=== PATIENT | female | born 1960 | race African-American/Black ===

== ENCOUNTER 2017-07-24 14:22 | Emergency (ER) | payer OTHER | END 2017-07-24 15:16 | disposition left against medical advice (07) | LOC: ERS 14:22 | DX: Z53.21 Procedure and treatment not carried out due to patient leaving prior to being seen by health care provider (principal) ==

== ENCOUNTER 2017-11-04 16:35 | Emergency (ER) | payer BC, OTHER ==
[2017-11-04] MEDS ORDERED: Morphine 4 MG/ML VIAL ONE (18:29)
[2017-11-04] MEDS ORDERED: Ondansetron ODT 4 MG TAB ONE (18:30)
--- NOTE | 2017-11-04 19:11 | CT ---
CT OF THE LUMBAR SPINE WITHOUT CONTRAST 11/04/17 COMPARISON: 05/31/14 HISTORY: Back pain after injuring it at work. TECHNIQUE: Multiple contiguous axial images were obtained in a CT of the cervical spine without contrast. Sagitt al and coronal reformats were performed. FINDINGS: There are moderate degenerative changes in the lumbar spine with vacuum phenomenon seen from L3-4 thr ough L5-S1. Small osteophytes are seen in the lumbar spine. There is no evidence of acute fracture or subluxation. No prevertebral soft tissue swelling is seen. No bony narrowing of the central canal is seen. There is mild to moderate bilateral neural foraminal stenosis from L3-4 through L5-S1. Vascular calcifications are seen in the aorta. The other prevertebral and paraspinal soft tissues are unremarkable. IMPRESSION: Moderate degenerative changes of the lumbar spine without acute osseous abnormality. POS: ALEX
== END 2017-11-04 19:49 | disposition home or self-care (01) ==
LOC: ERS 16:35
DX: S33.5XXA Sprain of ligaments of lumbar spine, initial encounter (principal); I10 Essential (primary) hypertension; E11.9 Type 2 diabetes mellitus without complications; E78.5 Hyperlipidemia, unspecified; Z79.899 Other long term (current) drug therapy; Z79.84 Long term (current) use of oral hypoglycemic drugs; X50.0XXA Overexertion from strenuous movement or load, initial encounter
CPT/HCPCS: 72131; 96372; J2270; Q0162

== ENCOUNTER 2018-02-14 12:17 | Inpatient (IN) | payer BC ==
[~2018-02-14 12:17] MED LIST: ISOVUE-370 76%-LOCM 1 ML ONE
--- NOTE | 2018-02-14 12:57 | CT ---
BRAIN CT WITHOUT IV CONTRAST: HISTORY: A 57-year-old female with a history of stroke, left-sided leg and arm deficits with ataxia since 4:00 a.m. this morning. COMPARISON: 01/27/13. FINDINGS: No focal mass or midline shift. No intra- or extraaxial hemorrhage. Sinuses and mastoids are clear of acute process. IMPRESSION: No significant acute process. No mass or bleed. Findings discussed with Dr. Wong by phone at 12:52 p.m. CODE CR POS: ALEX
[2018-02-14 13:18] LABS: #Basophils 0.1 thou/uL (0.0-0.2); #Eosinphils 0.1 thou/uL (0.0-0.7); #Lymphocytes 3.5 thou/uL (1.20-3.40); #Monocytes 0.9 thou/uL (0.11-0.59); #Neutrophils 5.6 thou/uL (1.40-6.50); %Basophils 0.7 % (0.0-1.0); %Eosinophils 0.6 % (0.0-10.0); %Lymphocytes 34.5 % (21.0-51.0); %Monocytes 9.2 % (0.0-10.0); %Neutrophils 54.9 % (42.0-75.0); Mean Corpuscular HGB CONC 31.4 g/dL (32.0-36.0); Mean Corpuscular Hemoglobin 24.8 pg (27.0-31.0); Mean Corpuscular Volume 78.9 fL (78.0-98.0); Mean Platelet Volume 9.1 fL (7.4-10.4); Platelet Count 232 thou/uL (130-400); RBC Distribution Width 14.8 % (11.5-14.5); Red Blood Cell (RBC) Count 4.42 mill/uL (4.20-5.40); White Blood Cell (WBC) Count 10.2 thou/uL (4.8-10.8)
[2018-02-14 13:26] LABS: PTT 38.1 SEC (22.9-36.1)
[2018-02-14 13:27] LABS: INR-International Normal Ratio 1.1
--- NOTE | 2018-02-14 13:29 | CT ---
CT ANGIOGRAM OF THE HEAD CT ANGIOGRAM OF THE NECK: DATE: 02/14/18. COMPARISON: None. HISTORY: Left-sided leg and arm deficits with ataxia which began at 4:00 a.m. this morning. TECHNIQUE: Serial axial CT imaging obtained at 1.25 mm intervals from the lung apices through the vertex with IV contrast using a CT angiogram protocol. Coronal and sagittal 3D reformatted imaging obtained. FINDINGS: There is mild linear interstitial density within the visualized lung apices bilaterally. There is atherosclerotic calcification involving the proximal descending thoracic aorta. There is at herosclerotic calcification at the origin of the left subclavian artery. On evaluation, the origin o f the left subclavian artery is poorly assessed secondary to streak artifact from contrast media with in adjacent venous structures. There is significant atherosclerotic calcification at the origin of t he left subclavian artery and a focal area of hemodynamically significant stenosis is suspected at th e level of the proximal left subclavian artery. Streak artifact limits detailed assessment of the proximal left common carotid artery. The left comm on carotid artery is otherwise unremarkable. Origin of right common carotid artery is unremarkable. No hemodynamically significant stenosis of th e right common carotid artery noted. Proximal right CCA is tortuous. There is atherosclerotic calci fication at origin of right subclavian artery. Right vertebral artery is dominant and appears unremarkable. The left vertebral artery is hypoplasti c. Proximal left vertebral artery is limited in assessment secondary to streak artifact but appears grossly unremarkable. The distal left cervical ICA is tortuous. There is no hemodynamically significant stenosis on the ba sis of NASCET criteria involving the left internal carotid artery. There is mild atherosclerotic calcification at the origin of the right internal carotid artery with n o hemodynamically significant stenosis seen. The retroantral fat and the parapharyngeal fat is clear bilaterally. Parotid glands and submandibular glands demonstrate no dominant past lesion. The tonsillar pillars, epiglottis, and preepiglottic fat, hyoid bone, thyroid cartilage, cricoid cartilage, and thyroid glan d appear grossly unremarkable. There is no lymphadenopathy noted within the neck. Osseous structures of the cervical spine demonstrate scattered degenerative changes, most prominent a t C6-7. No worrisome lytic or blastic bone lesion. The distal vertebral arteries and the basilar artery are patent. Patent bilateral posterior communic ating arteries are present. There are moderate areas of stenosis involving bilateral posterior cerebral arteries, best seen on th e right on axial image 198 and on the left on axial image 194. There is sclerotic calcification involving the cavernous carotid arteries bilaterally. The M1 segment is patent bilaterally. The MCA bifurcation appears within normal limits bilaterally. The MYLES is unremarkable bilaterally. No central arterial occlusion, sacular aneurysm, or hemodynamically significant stenosis is seen invo lving the anterior circulation. The paranasal sinuses and mastoid air cells are well aerated. IMPRESSION: 1. CT angiogram of the neck demonstrates no hemodynamically significant stenosis within the carotid or vertebral system on the basis of NASCET criteria. 2. CT angiogram of the head demonstrates no central arterial occlusion. Scattered areas of atherosc lerotic disease as detailed above. Results were called to Dr. Wong at 1:15 p.m. 02/14/18. CODE CR POS: ALEX
[2018-02-14 13:33] LABS: ALT (SGPT) 7 U/L (8-55); AST (SGOT) 7 U/L (5-34); Albumin 3.8 g/dL (3.5-5.0); Alkaline Phosphatase 99 U/L (40-150); Anion Gap 11 mmol/L (10-20); BUN (Urea Nitrogen) 14 mg/dL (9.8-20.1); Bilirubin, Total 0.5 mg/dL (0.2-1.2); Calc. Creatinine Clearance 0 mL/min (70-130); Calcium 9.1 mg/dL (7.8-10.44); Carbon Dioxide 25 mmol/L (22-29); Chloride 96 mmol/L (98-107); Estimated GFR-MDRD 45; Globulin 3.3 g/dL (2.4-3.5); Glucose 352 mg/dL (70-105); Potassium 3.2 mmol/L (3.5-5.1); Protein, Total 7.1 g/dL (6.0-8.3); Sodium 129 mmol/L (136-145)
[2018-02-14 13:37] LABS: CKMB 1.1 ng/mL (0-6.6); Troponin I 0.038 ng/mL (< 0.028)
[2018-02-14] MEDS ORDERED: Ondansetron HCl/PF 4 MG/2 ML Vial IVP PRN (13:53)
[2018-02-14] MEDS ORDERED: Lorazepam 1 MG TAB PO PRN (13:53)
[2018-02-14] MEDS ORDERED: Calcium Carbonate 500 MG ChewTAB PO PRN (13:53)
[2018-02-14] MEDS ORDERED: Mag-Al 1200 mg/1200 mg/30 ML UDCUP PO PRN (13:53)
[2018-02-14] MEDS ORDERED: Dextrose 50% Abboject 50 ML SYRINGE SLOW IVP PRN (13:53)
[2018-02-14] MEDS ORDERED: Dextrose 5% in Water 1,000 ML IV PRN (13:53)
[2018-02-14] MEDS ORDERED: Loratadine 10 MG TAB PO PRN (13:53)
[2018-02-14] MEDS ORDERED: hydrALAZINE 20 MG/ML VIAL SLOW IVP PRN (13:53)
[2018-02-14] MEDS ORDERED: Nitroglycerin 0.4 MG TAB (25 Tab Bottle) SL PRN (13:53)
[2018-02-14] MEDS ORDERED: Senokot 8.6 MG TAB PO PRN (13:53)
[2018-02-14] MEDS ORDERED: Acetaminophen 325 MG TAB PO PRN (13:53)
[2018-02-14] MEDS ORDERED: traMADol HCl 50 MG TAB PO PRN (13:53)
[2018-02-14] MEDS ORDERED: Benzonatate 100 MG CAP PO PRN (13:53)
[2018-02-14] MEDS ORDERED: Diabetic Tussin 200 MG/10 ML UDCUP PO PRN (13:53)
[2018-02-14] MEDS ORDERED: Bisacodyl 5 MG TAB PO PRN (13:53)
[2018-02-14] MEDS ORDERED: HumaLOG 300 UNITS/3 ML VIAL SC PRN (13:53)
[2018-02-14] MEDS ORDERED: Potassium Chloride 20 MEQ TAB PO SCH (14:30)
--- NOTE | 2018-02-14 14:50 | HP ---
DATE OF ADMISSION: 02/14/2018 PRIMARY CARE PHYSICIAN: Dr. Ananth Dent. CHIEF COMPLAINT: Left leg weakness: Fall and slurred speech. HISTORY OF PRESENT ILLNESS: Ms. Hart is a 57-year-old female with past medical history of coronary artery disease, status post stenting as well as hypertension, who presented to the ER with above-men tioned complaint. History is mainly obtained from the patient herself and supplemented by her family members present in the room. Case has been discussed with admitting ER physician, Dr. Wong. Ms. Hart reports that she has been feeling a little bit tired yesterday and her back was hurting, b ut that is not new for her yesterday. She went to bed okay, but when she got up in the morning, toda y, she felt extremely weak in her left leg and reports that she fell 3 times. She feels that her lef t leg was not able to support her at all. Her family members noticed that her speech was slurred, bu t otherwise there was no loss of consciousness. There was no confusion. She denies any similar symp toms happening in the past. She denies any incontinence. She denies any vision changes or swallowin g issues. She denies any paraesthesias. No recent illnesses or sick contacts. Upon presentation to the emergency room, she was brought in as a stroke alert, but she was out of the TPA window. CT angio and CT of the brain was done which were both unremarkable. She received aspir in in the emergency room and is now being admitted for further workup and rule out CVA. PAST MEDICAL HISTORY: 1. Hypertension. 2. Coronary artery disease status post cardiac stenting as per the patient. She follows up with Dr. Prajapati once a year. 3. Diabetes mellitus type 2. 4. Hypertension. 5. Small-bowel obstruction. PAST SURGICAL HISTORY: 1. Back surgery. 2. section x3. 3. Hysterectomy. 4. Dyslipidemia. ALLERGIES: MACRODANTIN and PENICILLIN. SOCIAL HISTORY: No history of drug, tobacco or alcohol abuse. FAMILY HISTORY: Mother of massive CO at the age of 70 years. Father of liver disease at t he age of 47 years. She is and lives with her family. CURRENT MEDICATIONS: As per the ER records, glipizide 10 mg daily; lisinopril 10 mg daily; Plavix 75 mg daily; metformin 350 mg 3 times a day; tizanidine, unknown dose; [place] as needed, unknown dose; Z anaflex 4 mg q.6 hours p.r.n. REVIEW OF SYSTEMS: A 12-point review of system is done, it is negative except for those mentioned in the history and physical. LABORATORY DATA: Her CBC is unremarkable other than hemoglobin being slightly low at 11.0. Serum ch emistry shows sodium of 129, potassium 3.2, chloride 96, creatinine 1.44, blood sugar 352, troponin [address] scan of the brain by my review has no acute hemorrhage or mass lesions. CT angiogram of th e head and neck is negative for any occlusions. PHYSICAL EXAMINATION: VITAL SIGNS: Upon presentation, blood pressure 131/80, pulse of 57, respirations 16, saturating 97% on room air, afebrile. GENERAL: No acute distress, awake, alert, oriented x3. Family is at bedside. HEENT: Mucous membrane is moist and pink. No oropharyngeal exudate or erythema. The patient does a ppear to have some thick secretions in the mouth and some slurred speech without any facial droop. P upils equal, reactive to light and accommodation bilaterally. Head is normocephalic, atraumatic. NECK: Supple without any lymphadenopathy, JVD or bruit. CHEST: Clear to auscultation without any wheezing, rales, rhonchi. CARDIOVASCULAR: Rhythm is regular without any murmurs or gallops. ABDOMEN: Soft, obese, nontender, nondistended, positive bowel sounds. EXTREMITIES: Free of any cyanosis, clubbing, or edema. NEUROLOGIC: The speech is slurred and she does have some left hand weakness as well as left leg weak ness. Hand strength is 4/5 in the left hand without any significant arm weakness. Her left leg, she is unable to move against gravity more than 10 degrees with great effort. This is without resistanc e. Cranial nerves II-XII otherwise grossly intact. No dysdiadochokinesia. SKIN: Free of any rashes or bruises. I feel warm and dry to touch. PSYCHIATRIC: Normal affect. IMPRESSION AND PLAN: 1. Left-sided weakness with slurred speech. The patient's symptoms are concerning for acute cerebro vascular accident. She does have multitude of risk factors of diabetes, hypertension, history of cor onary artery disease. She will be started on full dose aspirin. We will continue Plavix for now. Sheela morales will obtain an MRI of the brain as well as review the echocardiogram. Her last echocardiogram done was in 01/2017. At that admission, it was advised that she undergo a cardiac catheterization, but s he had refused at that time. We will also request consultation with stroke team and Neurology. [facility] k lipid panel as well. 2. Troponin elevation is borderline at this time. Likely secondary to demand ischemia. We will con tinue to trend serial cardiac enzymes and perform a transthoracic echocardiogram and restart her card io protein home medications. Monitor on telemetry unit. 3. Acute renal insufficiency, likely poor p.o. intake and dehydration. We will start her on gentle IV fluid hydration and recheck blood work in the morning. Avoid any nephrotoxic medications. 4. Hyponatremia, once again consistent with dehydration. We will start her on normal saline and mon itor her symptoms. Watch for fluid overload. 5. Hypokalemia. We will replace the potassium and recheck in the morning. 6. Coronary artery disease. We will restart her Plavix, aspirin at a higher dose, DAMON inhibitor. T he patient does not seem to be on any beta julissa for some reason. If no contraindication, we will start her on low dose carvedilol as well. 7. Chronic low back pain. 8. Morbid obesity with a weight of 116 kilograms. BMI undecided. 9. Code status: FULL CODE. Discussed with the patient. 10. Deep venous thrombosis and gastrointestinal prophylaxis and p.r.n. medication orders. DISPOSITION: Ms. Hart is currently being admitted to the stroke floor observation status for rule out stroke. Further management will depend upon her clinical course and the results of the imaging s dc.?
[2018-02-14] MEDS: HYDROcodone/Acetaminophen 5/325 mg Tablet PO PRN ×2 (15:20→21:28)
[2018-02-14] MEDS: Sodium Chloride 0.9% 1,000 ML IV SCH (15:20)
[2018-02-14 15:26] LABS: Troponin I 0.117 ng/mL (< 0.028)
[2018-02-14 15:34] VITALS: BMI 35.8
[2018-02-14] MEDS: HumaLOG 300 UNITS/3 ML VIAL SC PRN (17:13)
[2018-02-14 18:30] LABS: Troponin I 0.135 ng/mL (< 0.028)
--- NOTE | 2018-02-14 19:53 | CON ---
DATE OF CONSULTATION: 02/14/2018 CHIEF COMPLAINT: Possible cerebrovascular accident with left-sided weakness. HISTORY OF PRESENT ILLNESS: The patient is a 57-year-old lady who reports that she was doing well un til this afternoon when she suddenly felt weakness on the left side of the body. She particularly fe lt her left leg was weak and she came immediately to the hospital and patient complains of primarily weakness of the left side. No numbness was reported and there is no history of any headache and the symptoms started when she woke up. Therefore, due to present time of presentation after several hour s and her being out of window for IV TPA, no thrombolytics were given. She reports she fell 3 times and her family members also noticed slurred speech, but no loss of consciousness or seizure activity. No vision changes. No dizziness. PAST MEDICAL HISTORY: She has had hypertension. She also has had diabetes for 10 years and coronary artery disease with stent placement and she has a financial accounting analyst, and she had a prior history of small -bowel obstruction. She also has dyslipidemia. PAST SURGICAL HISTORY: Back surgery, , hysterectomy. ALLERGIES: She is allergic to MACRODANTIN and PENICILLIN. FAMILY HISTORY: Mother had a stroke. Grandmother also had a stroke. Father had liver disease. Mot her also had history of heart disease. SOCIAL HISTORY: She does not smoke or drink and she lives with her family. MEDICATIONS AT HOME: She takes aspirin, Plavix, metformin, glipizide, lisinopril, tizanidine, [place], Zanaflex. REVIEW OF SYSTEMS: Pulmonary: Negative for any shortness of breath or cough. Cardiovascular: Nega tive for any chest pain or palpitations. Gastrointestinal: She has no history of nausea or vomiting . No history of any problems with abdominal pain. Hematologic: Negative for anemia or blood loss. Endocrine: Positive for diabetes, which has been reasonably well controlled. Dermatologic: Negati ve for any skin rash. LABORATORY WORKUP: White count 10.2, hemoglobin 11, hematocrit 34.9, platelets 232. PT 14, INR 1.1, PTT 38.1. Sodium 129, potassium 3.2, chloride 96, bicarbonate 25, BUN 14, creatinine 1.44, glucose 352 on arrival. Subsequent blood glucose was 222. Troponin 0.038 on arrival, second troponin level was 0.117. Her CT scan of the head was negative for any acute infarct. CT angiogram showed no evide nce of any hemodynamically significant stenosis within the carotid or vertebral system and CTA of the head does not show any central arterial occlusion. PHYSICAL EXAMINATION: GENERAL APPEARANCE: Well-built, well-nourished lady who is comfortable in bed. VITAL SIGNS: Blood pressure 133/79, temperature 97.7, pulse 70, respiratory rate 20. CHEST: Clear vesicular breathing. CARDIOVASCULAR: S1, S2 heard, no murmurs. Carotids are clear. ABDOMEN: Soft, nontender, no organomegaly noted. MOTOR: Bulk normal, tone normal, strength 5/5 in upper and lower extremities on the right side. On the left upper extremity, her strength was 4/5 and she had a pronator drift and the left lower extrem ity strength was 3/5. Muscle groups tested are iliopsoas, hamstrings, quadriceps, ankle dorsiflexion , plantar flexion, deltoid, biceps, triceps, wrist extension and flexion, finger extension and flexio n bilaterally. SENSORY: Normal touch, pinprick, proprioception, vibration, and temperature bilaterally. CEREBELLAR: Normal [id number], heel to wolff on the right side and difficult to test heel to wolff on the left due to weakness. Left upper extremity [id number] was normal. Gait not tested. IMPRESSION: The patient is a 57-year-old lady with new-onset left-sided weakness since that time she woke up this morning; therefore exact timing and onset of stroke symptoms is difficult to determine due to delay in presentation and history. She was considered not a candidate for IV TPA. On CT hermelindo ogram, there was no vasoocclusive disease. Coincidentally, her sodium level is 129. Her physical ex amination shows left-sided weakness, more in the lower extremity compared to the upper extremity with proximal and distal muscle weakness of 4/5 in the left upper extremity and proximal weakness of 3/5 and distal muscle weakness of 4/5 in the left lower extremity. Clinical diagnosis is most consistent with an acute ischemic event. At this time, a CT head is negative. However, she is pending further workup including an MRI of the brain. RECOMMENDATIONS: MRI of the brain with and without contrast, echocardiogram and workup for any hyper coagulable state such as lupus anticoagulant. Her PTT is elevated. If there is confirmed stroke, we need to consider anticoagulation since the patient stated she takes aspirin at home and she is also taking Plavix. I will request Dr. France from Neurology to follow up on this patient tomorrow.
[2018-02-14] MEDS: Atorvastatin Calcium 40 MG TAB PO SCH (21:28)
[2018-02-14 22:20] LABS: Troponin I 0.105 ng/mL (< 0.028)
[2018-02-15] MEDS: HYDROcodone/Acetaminophen 5/325 mg Tablet PO PRN ×4 (03:03→20:30)
[2018-02-15] MEDS: HumaLOG 300 UNITS/3 ML VIAL SC PRN ×3 (06:31→17:17)
[2018-02-15] MEDS: Sodium Chloride 0.9% 1,000 ML IV SCH (06:32)
[2018-02-15 06:51] LABS: Cardiac Risk 5.2 (Less than 4.5)
[2018-02-15] MEDS: Clopidogrel Bisulfate 75 MG TAB PO SCH (08:58)
[2018-02-15] MEDS: Enoxaparin Sodium 40 MG/0.4 ML SYRINGE SC SCH (08:59)
[2018-02-15] MEDS: Aspirin 325 mg Enteric Coated Tablet PO SCH (08:59)
--- NOTE | 2018-02-15 09:21 | MRI ---
MRI BRAIN WITHOUT CONTRAST: HISTORY: TIA. COMPARISON: Correlation is made with the CT scan of previous day. FINDINGS: There is a focal area of restricted diffusion in the right side of the georgina. No hemorrhage, transcor tical infarct, midline shift, or abnormal extraaxial fluid collections is seen. There are minimal ch anges of chronic small-vessel ischemic disease in the periventricular white matter. The ventricular size is appropriate and the basilar cisterns are patent. No tonsillar herniation is seen. IMPRESSION: Recent focal infarction in the right side of the georgina. POS: [facility]
[2018-02-15 09:39] LABS: Anion Gap 16 mmol/L (10-20); Calcium 9.3 mg/dL (7.8-10.44); Carbon Dioxide 20 mmol/L (22-29); Chloride 105 mmol/L (98-107); Potassium 3.8 mmol/L (3.5-5.1); Sodium 137 mmol/L (136-145)
[2018-02-15 10:04] LABS: Glucose 193 mg/dL (70-105)
[2018-02-15 10:06] LABS: Calc. Creatinine Clearance 144 mL/min (70-130); Estimated GFR-MDRD Greater than 90
[2018-02-15 10:07] LABS: BUN (Urea Nitrogen) 16 mg/dL (9.8-20.1)
--- NOTE | 2018-02-15 15:51 | PDOC.PN ---
- Subjective Encounter Start Date: 02/15/18 Encounter Start Time: 15:51 Subjective: feels much better. able to move left leg now -: speech improved - Objective MAR Reviewed: Yes Vital Signs & Weight: Vital Signs (12 hours) Temp Pulse Resp BP Pulse Ox 02/15/18 15:20 98.2 F 69 18 167/84 H 97 02/15/18 11:39 98.3 F 82 16 171/85 H 93 L 02/15/18 08:57 98.1 F 73 16 02/15/18 07:34 98.1 F 73 16 129/76 95 02/15/18 04:00 98.0 F 74 18 118/60 95 Weight Admit Weight 4.109 oz Weight 256 lb 13.416 oz I&O: 02/14/18 02/15/18 02/16/18 06:59 06:59 06:59 Intake Total 1150 Balance 1150 Result Diagrams: 02/14/18 12:57 02/15/18 06:23 Additional Labs: Accuchecks 02/15/18 02/15/18 02/14/18 10:56 06:11 21:57 POC Glucose 243 H 198 H 270 H 02/14/18 15:51 POC Glucose 222 H Laboratory Tests 02/14/18 02/14/18 02/14/18 12:57 14:55 17:59 Troponin I 0.038 H 0.117 H 0.135 H 02/14/18 21:49 Troponin I 0.105 H Radiology Reviewed by me: Yes (MRI-recent R pontine infarct) Phys Exam - Physical Examination Constitutional: NAD HEENT: PERRLA, moist MMs, sclera anicteric, oral pharynx no lesions Neck: no nodes, no JVD, supple, full ROM Respiratory: no wheezing, no rales, no rhonchi, clear to auscultation bilateral Cardiovascular: RRR, no significant murmur, no rub Gastrointestinal: soft, non-tender, no distention, positive bowel sounds Musculoskeletal: no edema, pulses present Neurological: normal sensation Improved left leg and L hand weakness,speech improved Dx/Plan (1) CVA (cerebral vascular accident) Code(s): I63.9 - CEREBRAL INFARCTION, UNSPECIFIED Status: Acute Qualifiers: CVA mechanism: thrombosis Laterality of affected vessel: right (2) Tobacco abuse Code(s): Z72.0 - TOBACCO USE Status: Chronic (3) HLD (hyperlipidemia) Code(s): E78.5 - HYPERLIPIDEMIA, UNSPECIFIED Status: Chronic (4) Stented coronary artery Status: Chronic (5) CAD (coronary artery disease) Code(s): I25.10 - ATHSCL HEART DISEASE OF [place] CORONARY ARTERY W/O ANG PCTRS Status: Chronic Qualifiers: Coronary Disease-Associated Artery/Lesion type: [place] artery [place] vs. transplanted heart: [place] heart Associated angina: without angina Qualified Code(s): I25.10 - Atherosclerotic heart disease of [place] coronary artery without angina pectoris (6) DM type 2 (diabetes mellitus, type 2) Status: Chronic Qualifiers: Diabetes mellitus [place] insulin use: without [place]st[place] use Diabetes mellitus complication status: with unspecified complications Qualified Code(s) : E11.8 - Type 2 diabetes mellitus with unspecified complications (7) Hypertension Code(s): I10 - ESSENTIAL (PRIMARY) HYPERTENSION Status: Chronic Qualifiers: Hypertension type: essential hypertension Qualified Code(s): I10 - Essential (primary) hypertension - Plan plan discussed w/ family, PT/OT, speech therapy, out of bed/ambulate, DVT proph w/SCDs cont full dose ASA w Plavix.Cont statin -: diet and lifestyle modification advised.consult dietitian -: Tobacco conunselling provided -: Ot,PT,PROCEDURE ANALYST.awaiting final Neurology recs. ECHO pending -: change to inpatient * . Review of Systems - Review of Systems Constitutional: negative: fever, chills, sweats, weakness, malaise, other ENT: negative: Ear Pain, Ear Discharge, Nose Pain, Nose Discharge, Nose Congestion, Mouth Pain, Mouth Swelling, Throat Pain, Throat Swelling, Other Respiratory: negative: Cough, Dry, Shortness of Breath, Hemoptysis, SOB with Excertion, Pleuritic Pain, Sputum, Wheezing Cardiovascular: negative: chest pain, palpitations, orthopnea, paroxysmal nocturnal dyspnea, edema, light headedness, other Gastrointestinal: negative: Nausea, Vomiting, Abdominal Pain, Diarrhea, Constipation, Melena, Hematochezia, Other Genitourinary: negative: Dysuria, Frequency, Incontinence, Hematuria, Retention , Other Musculoskeletal: negative: Neck Pain, Shoulder Pain, Arm Pain, Back Pain, Hand Pain, Leg Pain, Foot Pain, Other Neurological: Weakness, Change in Speech - Medications/Allergies Allergies/Adverse Reactions: Allergies Allergy/AdvReac Type Severity Reaction Status Date / Time Penicillins Allergy Severe Anaphylaxis Verified 06/12/14 22:56 nitrofurantoin Allergy Rash Verified 06/12/14 22:56 macrocrystalline [From Macrodantin] Medications: Current Medications Acetaminophen (Tylenol) 650 mg PO Q4H PRN PRN Reason: Headache/Fever or Mild Pain Hydrocodone Bitart/Acetaminophen ([place] 5/325) 1 tab PO Q4H PRN PRN Reason: Moderate Pain (4-6) Last Admin: 02/15/18 08:59 Dose: 1 tab Hydrocodone Bitart/Acetaminophen ([place] 5/325) 2 tab PO Q4H PRN PRN Reason: Severe Pain (7-10) Last Admin: 02/15/18 13:26 Dose: 2 tab Al Hydroxide/Mg Hydroxide (Maalox) 15 ml PO Q4H PRN PRN Reason: Heartburn or Indigestion Alprazolam (Xanax) 0.25 mg PO HS [facility] Aspirin (Ecotrin) 325 mg PO DAILY [facility] Last Admin: 02/15/18 08:59 Dose: 325 mg Atorvastatin Calcium (Lipitor) 40 mg PO HS [facility] Last Admin: 02/14/18 21:28 Dose: 40 mg Benzonatate (Tessalon) 100 mg PO Q4H PRN PRN Reason: Cough Bisacodyl (Dulcolax) 10 mg PO DAILYPRN PRN PRN Reason: Constipation Calcium Carbonate (Tums) 1,000 mg PO Q4H PRN PRN Reason: Heartburn or Indigestion Clopidogrel Bisulfate (Plavix) 75 mg PO DAILY [facility] Last Admin: 02/15/18 08:58 Dose: 75 mg Dextrose/Water (Dextrose 50%) 25 gm SLOW IVP PRN PRN PRN Reason: Hypoglycemia Enoxaparin Sodium (Lovenox) 40 mg SC 0900 [facility] Last Admin: 02/15/18 08:59 Dose: 40 mg Glipizide (Glucotrol) 10 mg PO DAILY [facility] Glucagon (Glucagon) 1 mg IM PRN PRN PRN Reason: Hypoglycemia Guaifenesin (Robitussin Sf) 200 mg PO Q4H PRN PRN Reason: Cough Hydralazine HCl (Apresoline) 10 mg SLOW IVP Q4H PRN PRN Reason: BP > 220/110 Dextrose/Water (D5w) 1,000 mls @ 0 mls/hr IV .Q0M PRN PRN Reason: Hypoglycemia Insulin Human Lispro (Humalog) 0 units SC .MODERATE SLIDING SC PRN PRN Reason: Moderate Correctional Scale Last Admin: 02/15/18 11:28 Dose: 4 unit Insulin Human Lispro (Humalog) 0 units SC .BEDTIME SLIDING SC PRN PRN Reason: Bedtime Correctional Scale Last Admin: 02/14/18 22:02 Dose: 3 unit Loratadine (Claritin) 10 mg PO DAILYPRN PRN PRN Reason: Sinus Symptoms Lorazepam (Ativan) 1 mg PO Q4H PRN PRN Reason: Anxiety/Agitation Metoprolol Succinate (Toprol Xl) 50 mg PO DAILY JL Nitroglycerin (Nitrostat) 0.4 mg SL Q5MIN PRN PRN Reason: Chest Pain Ondansetron HCl (Zofran) 4 mg IVP Q6H PRN PRN Reason: Nausea/Vomiting Senna (Senokot) 2 tab PO HSPRN PRN PRN Reason: Constipation Sodium Chloride (Flush - Normal Saline) 10 ml IVF PRN PRN PRN Reason: Saline Flush Tramadol HCl (Ultram) 50 mg PO Q4H PRN PRN Reason: Moderate Pain (4-6)
[2018-02-15] MEDS: Atorvastatin Calcium 40 MG TAB PO SCH (20:30)
[2018-02-15] MEDS: ALPRAZolam 0.25 MG TAB PO SCH (20:30)
[2018-02-16] MEDS: HYDROcodone/Acetaminophen 5/325 mg Tablet PO PRN ×5 (01:38→22:30)
[2018-02-16] MEDS ORDERED: cloNIDine 0.1 MG TAB PO SCH (03:15)
[2018-02-16] MEDS: HumaLOG 300 UNITS/3 ML VIAL SC PRN ×3 (05:59→18:16)
[2018-02-16] MEDS: Clopidogrel Bisulfate 75 MG TAB PO SCH (08:30)
[2018-02-16] MEDS: Enoxaparin Sodium 40 MG/0.4 ML SYRINGE SC SCH (08:30)
[2018-02-16] MEDS: glipiZIDE 10 MG TAB PO SCH (08:30)
[2018-02-16] MEDS: Aspirin 325 mg Enteric Coated Tablet PO SCH (08:30)
--- NOTE | 2018-02-16 11:57 | PDOC.PN ---
- Subjective Encounter Start Date: 02/16/18 Encounter Start Time: 11:55 Subjective: weak on L side - Objective MAR Reviewed: Yes Vital Signs & Weight: Vital Signs (12 hours) Temp Pulse Resp BP BP BP Pulse Ox 02/16/18 09:35 177/84 H 02/16/18 04:00 98.5 F 70 16 132/73 99 02/16/18 03:06 200/86 H 02/16/18 00:41 70 200/86 H 02/16/18 00:00 98.1 F 74 20 200/86 H 95 Weight Admit Weight 4.109 oz Weight 256 lb 13.416 oz I&O: 02/15/18 02/16/18 02/17/18 06:59 06:59 06:59 Intake Total 1150 Balance 1150 Result Diagrams: 02/14/18 12:57 02/15/18 06:23 Additional Labs: Accuchecks 02/16/18 02/15/18 02/15/18 05:26 21:00 16:37 POC Glucose 211 H 174 H 190 H Phys Exam - Physical Examination Neck: no JVD Respiratory: clear to auscultation bilateral Cardiovascular: RRR, no significant murmur Gastrointestinal: soft, non-tender, positive bowel sounds Musculoskeletal: no edema, pulses present Dx/Plan (1) Hemiplegia affecting left nondominant side Code(s): G81.94 - HEMIPLEGIA, UNSPECIFIED AFFECTING LEFT NONDOMINANT SIDE Status: Acute Qualifiers: Hemiplegia type: spastic Hemiplegia etiology: late effect of cerebrovascular disease Cerebrovascular disease type: cerebral infarction Qualified Code(s): I69.354 - Hemiplegia and hemiparesis following cerebral infarction affecting left non-dominant side (2) CVA (cerebral vascular accident) Code(s): I63.9 - CEREBRAL INFARCTION, UNSPECIFIED Status: Acute Qualifiers: CVA mechanism: thrombosis Laterality of affected vessel: right (3) HLD (hyperlipidemia) Code(s): E78.5 - HYPERLIPIDEMIA, UNSPECIFIED Status: Chronic Qualifiers: Hyperlipidemia type: pure hypercholesterolemia Qualified Code(s): E78.00 - Pure hypercholesterolemia, unspecified; E78.0 - Pure hypercholesterolemia (4) Tobacco abuse Code(s): Z72.0 - TOBACCO USE Status: Chronic (5) CAD (coronary artery disease) Code(s): I25.10 - ATHSCL HEART DISEASE OF [place] CORONARY ARTERY W/O ANG PCTRS Status: Chronic Qualifiers: Coronary Disease-Associated Artery/Lesion type: [place] artery [place] vs. transplanted heart: [place] heart Associated angina: without angina Qualified Code(s): I25.10 - Atherosclerotic heart disease of [place] coronary artery without angina pectoris (6) DM type 2 (diabetes mellitus, type 2) Status: Chronic Qualifiers: Diabetes mellitus salvage determiner insulin use: without nursing home use Diabetes mellitus complication status: with unspecified complications Qualified Code(s) : E11.8 - Type 2 diabetes mellitus with unspecified complications (7) Hypertension Code(s): I10 - ESSENTIAL (PRIMARY) HYPERTENSION Status: Chronic Qualifiers: Hypertension type: essential hypertension Qualified Code(s): I10 - Essential (primary) hypertension - Plan plan discussed w/ family, PT/OT cont asa, plavix, statin -: cont accu/ss/ glipizide * .
[2018-02-16] MEDS: ALPRAZolam 0.25 MG TAB PO SCH (20:42)
[2018-02-16] MEDS: Atorvastatin Calcium 40 MG TAB PO SCH (20:42)
[2018-02-17] MEDS: HYDROcodone/Acetaminophen 5/325 mg Tablet PO PRN ×3 (04:01→12:08)
[2018-02-17] MEDS: HumaLOG 300 UNITS/3 ML VIAL SC PRN (06:52)
[2018-02-17] MEDS: Enoxaparin Sodium 40 MG/0.4 ML SYRINGE SC SCH (08:02)
[2018-02-17] MEDS: glipiZIDE 10 MG TAB PO SCH (08:02)
[2018-02-17] MEDS: Aspirin 325 mg Enteric Coated Tablet PO SCH (08:03)
[2018-02-17] MEDS: Clopidogrel Bisulfate 75 MG TAB PO SCH (08:03)
--- NOTE | 2018-02-17 08:31 | DIS ---
TRANSFER OF CARE NOTE PRIMARY CARE PROVIDER: Dr. Ananth Dent DATE OF ADMISSION: 02/14/2018 DATE OF DISCHARGE: 02/17/2018 DISCHARGE DISPOSITION: Discharged home. FINAL DIAGNOSES: 1. Cerebrovascular accident located in the right [place]. 2. Left spastic hemiplegia. 3. Diabetes mellitus type 2. 4. Hypertension. 5. Coronary artery disease. 6. Dyslipidemia. DISCHARGE MEDICATIONS: Metformin 500 mg twice a day, Xanax 0.25 mg at bedtime, metoprolol 50 mg a da y, lisinopril 10 mg a day, glipizide 10 mg a day, Plavix 75 mg a day, Lipitor 40 mg a day, aspirin 32 5 mg a day. ALLERGIES: PENICILLINS and NITROFURANTOIN. DIET: Diabetic. CODE STATUS: FULL. PENDING AT THE TIME OF DISCHARGE: Nothing. HOSPITAL COURSE: The [facility] with left leg weakness and slurred speech. She was given aspirin in the em ergency room. She had left arm weakness and spasticity and severe dysfunction of the left leg. Her brain CT was unrevealing for an acute process. CT angiography; no central artery or internal carotid artery stenosis. MRI; focal infarction in the right side of the [place]. Consultation was obtained [facility] Dr. Anna George, Neurology. Echocardiogram was also done which revealed a LVEF of 55-60% with some diastolic dysfunction. The patient's aspirin was increased from 81 mg a day to 325, Plavix was added. Physical therapy was instituted. The patient has made dramatic progress with physical therap y. She still has a somewhat spastic left hemiplegia, but she is walking in the hallway. [facility] sowmya has recommended outpatient therapy with home health. This has been discussed with the patient and the daughter and she is being discharged for the same. PERTINENT LABORATORY: During her hospital stay, blood sugars were adequately controlled. Her initia l sodium was 129 with a blood sugar 350, potassium 3.2, creatinine 1.45, however, follow up revealed normal basic metabolic profile. Her CBC showed a hemoglobin 11.0, white count of 10.2, platelet coun t of 232,000. PLAN: 1. Discharge. 2. Follow up with Dr. Dent in 1 week. 3. Home health with outpatient PT, OT.
--- NOTE | 2018-02-17 10:48 | PDOC.EVN ---
Event Note - Event Note Event Note: post CVA, L spastic hemiplegia. going home with outpt PT. discussed use of rolling walker.
[2018-02-17 11:32] VITALS: TEMP 97.8
[2018-02-17 11:52] VITALS: BP 191/93
== END 2018-02-17 13:35 | disposition home or self-care (01) | DRG 65 ==
LOC: ERS 12:17 → 2SE 13:31 → OBSVTOIN 02-15 10:19 → 2SE 02-16 20:38
PROVIDERS: ADMIT Internal Medicine; ATTEND Internal Medicine
DX: I63.8 Other cerebral infarction (principal); E87.1 Hypo-osmolality and hyponatremia; G81.94 Hemiplegia, unspecified affecting left nondominant side; I10 Essential (primary) hypertension; I25.10 Atherosclerotic heart disease of native coronary artery without angina pectoris; E11.9 Type 2 diabetes mellitus without complications; E78.5 Hyperlipidemia, unspecified; N28.9 Disorder of kidney and ureter, unspecified; E87.6 Hypokalemia; E66.01 Morbid (severe) obesity due to excess calories; M54.9 Dorsalgia, unspecified; E86.0 Dehydration; Z79.02 Long term (current) use of antithrombotics/antiplatelets; Z79.84 Long term (current) use of oral hypoglycemic drugs
CPT/HCPCS: 36415; 36416; 70450; 70496; 70498; 70551; 80048; 80053; 80061; 82553; 84484; 85025; 85610; 85730; 93005; 93306; G8978-GP-CK; G8979-GP-CI; G8987-GO-CJ; G8988-GO-CI; G8996-GN-CI; G8997-GN-CH; J0360; J1650

== ENCOUNTER 2018-02-25 16:09 | Observation (INO) | payer BC ==
[2018-02-25 18:06] LABS: Bilirubin Small (Negative); Blood, Urine Negative (Negative); Clarity CLEAR (Clear); Glucose, Urine (Dipstick) Negative (Negative); Leukocyte Negative (Negative); Nitrite Negative (Negative); Protein, Urine (Dipstick) Trace mg/dL (Neg-Trace); Specific Gravity, Urine 1.035 (1.002-1.036); pH, Urine 5.5 (5.0-9.0)
--- NOTE | 2018-02-25 18:45 | CT ---
CT OF BRAIN PERFORMED WITHOUT CONTRAST ENHANCEMENT: 02/25/18 HISTORY: Facial droop and slurred speech. COMPARISON: 02/14/18 exam. The ventricular and cisternal system is within normal limits. There is no signs of intracerebral hemo rrhage or extra-axial fluid collections. Mastoid air cells and visualized sinuses are clear. IMPRESSION: No acute intracranial abnormalities. POS: MICHELLE
[2018-02-25 18:46] LABS: #Basophils 0.1 thou/uL (0.0-0.2); #Eosinphils 0.3 thou/uL (0.0-0.7); #Lymphocytes 4.8 thou/uL (1.20-3.40); #Monocytes 0.9 thou/uL (0.11-0.59); #Neutrophils 7.9 thou/uL (1.40-6.50); %Eosinophils 2.1 % (0.0-10.0); %Monocytes 6.5 % (0.0-10.0); %Neutrophils 56.4 % (42.0-75.0); Hemoglobin 12.4 g/dL (12.0-16.0); Mean Corpuscular HGB CONC 30.4 g/dL (32.0-36.0); Mean Corpuscular Hemoglobin 24.3 pg (27.0-31.0); Mean Platelet Volume 9.5 fL (7.4-10.4); Platelet Count 357 thou/uL (130-400); RBC Distribution Width 15.2 % (11.5-14.5); Red Blood Cell (RBC) Count 5.09 mill/uL (4.20-5.40)
[2018-02-25 19:08] LABS: ALT (SGPT) 7 U/L (8-55); AST (SGOT) 11 U/L (5-34); Albumin 4.6 g/dL (3.5-5.0); Alkaline Phosphatase 89 U/L (40-150); Anion Gap 16 mmol/L (10-20); BUN (Urea Nitrogen) 27 mg/dL (9.8-20.1); Bilirubin, Total 0.3 mg/dL (0.2-1.2); CK (CPK) 50 U/L (29-168); Calc. Creatinine Clearance 0 mL/min (70-130); Calcium 10.4 mg/dL (7.8-10.44); Carbon Dioxide 23 mmol/L (22-29); Chloride 104 mmol/L (98-107); Estimated GFR-MDRD 78; Glucose 66 mg/dL (70-105); Potassium 4.1 mmol/L (3.5-5.1); Protein, Total 8.6 g/dL (6.0-8.3); Sodium 139 mmol/L (136-145)
[2018-02-25 19:10] LABS: CKMB 0.6 ng/mL (0-6.6); Troponin I Less than 0.010 ng/mL (< 0.028)
[2018-02-25] MEDS ORDERED: HYDROcodone/Acetaminophen 5/325 mg Tablet ONE (20:57)
[2018-02-25] MEDS ORDERED: Ondansetron HCl/PF 4 MG/2 ML Vial IVP PRN (23:33)
[2018-02-25] MEDS ORDERED: Ondansetron ODT 4 MG TAB SL PRN (23:33)
[2018-02-25] MEDS ORDERED: Acetaminophen 325 MG TAB PO PRN (23:33)
[2018-02-26 00:16] VITALS: BMI 30.1
[2018-02-26] MEDS ORDERED: Enalaprilat Dihydrate 1.25 MG/ML VIAL SLOW IVP PRN (01:22)
[2018-02-26] MEDS ORDERED: Labetalol HCl 100 MG/20 ML VIAL SLOW IVP PRN (01:22)
[2018-02-26] MEDS ORDERED: hydrALAZINE 20 MG/ML VIAL SLOW IVP PRN (01:22)
[2018-02-26] MEDS ORDERED: Dextrose 50% Abboject 50 ML SYRINGE SLOW IVP PRN (01:25)
[2018-02-26] MEDS ORDERED: HumaLOG 300 UNITS/3 ML VIAL SC PRN (01:25)
[2018-02-26] MEDS ORDERED: Dextrose 5% in Water 1,000 ML IV PRN (01:25)
[2018-02-26] MEDS ORDERED: Enoxaparin Sodium 40 MG/0.4 ML SYRINGE SC SCH (01:30)
[2018-02-26 05:55] LABS: Cardiac Risk 2.8 (Less than 4.5)
[2018-02-26] MEDS: HYDROcodone/Acetaminophen 10/325 mg Tablet PO SCH ×2 (05:59→14:43)
[2018-02-26] MEDS ORDERED: Clopidogrel Bisulfate 75 MG TAB PO SCH (09:00)
[2018-02-26] MEDS ORDERED: Lisinopril 10 MG TAB PO SCH (09:00)
[2018-02-26] MEDS ORDERED: Aspirin 325 mg Enteric Coated Tablet PO SCH (09:00)
[2018-02-26 15:57] VITALS: BP 122/81; TEMP 97.9
--- NOTE | 2018-02-26 17:38 | HP ---
CHIEF COMPLAINT: Weak, dizziness, slurred speech. HISTORY OF PRESENT ILLNESS: This is a 57-year-old female with past medical history of CVA on 018, hypertension, hyperlipidemia, diabetes mellitus, chronic back pain presenting with slurred speec h and facial droop. Per the patient, her daughter noticed that she was slurring in her speech and th ey were very concerned because the patient recently had a stroke. Therefore, daughter stated that th ey had to bring the patient in to be evaluated. The whole event occurred around 1330 on the day of a dmission. Patient had history of a stroke 2 weeks prior to this admission and patient has a residual deficit left facial and left leg weakness. At this point, the patient denies any headaches, fever, nausea, vomiting, palpitation, chest pain, dysuria. REVIEW OF SYSTEMS: All other review of system is reviewed and is negative except for facial droop. PAST MEDICAL HISTORY: Hypertension, hyperlipidemia, diabetes mellitus, chronic back problems, CVA 2 weeks ago. PAST SURGICAL HISTORY: Appendectomy, , hysterectomy, back surgery, ectopic surger y, small-bowel obstruction surgery. SOCIAL HISTORY: Patient denies any drug use, smoking history, or illicit drug use and alcohol. ALLERGIES: Patient is allergic to MACRODANTIN and PENICILLIN. CURRENT MEDICATIONS: The patient is on glipizide, lisinopril, clopidogrel, metformin, tizanidine, No rco, Zanaflex, aspirin, Ambien. PHYSICAL EXAMINATION: VITAL SIGNS: Blood pressure 190/82, pulse 99, respiratory rate of 20, temperature of 98.3, O2 satura tion of 96. IMAGING: EKG, probable left atrial enlargement, no significant T-wave abnormalities. ED COURSE: The patient got [place]. CT of the head negative. No acute intracranial findings. LABORATORY DATA: WBC 14, hemoglobin is 12.4, hematocrit 40.7, platelets 207. Sodium is 139, potassi um 4.1, chloride 104, carbon dioxide 23, anion gap of 16, BUN of 27, creatinine of 0.90, glucose of 6 6, cholesterol 112, triglycerides 258, HDL cholesterol is 40. Urinalysis negative for urinary tract infection. ASSESSMENT AND PLAN: 1. The patient came in with facial droop and slurred speech was likely due to transient ischemic att ack. At this point, CT of the head has been negative, so MRI of the head has been ordered, consulted Neurology. We will start the patient on atorvastatin, aspirin and Plavix. We will continue to jackelyn tor the patient. Per history, patient is supposed to be on some sort of anticoagulation, but we will leave that up to neuro if patient actually started on anticoagulation. 2. History of diabetes mellitus. We will continue insulin sliding scale. 3. Hyperlipidemia. We will continue patient on atorvastatin. 4. Hypertension. We will monitor patient's blood pressure as needed. 5. Deep venous thrombosis, gastrointestinal prophylaxis.
[2018-02-26] MEDS ORDERED: tiZANidine HCl 4 MG TAB PO SCH (21:00)
[2018-02-26] MEDS ORDERED: Atorvastatin Calcium 40 MG TAB PO SCH (21:00)
[2018-02-26] MEDS ORDERED: ALPRAZolam 0.25 MG TAB PO SCH (21:00)
--- NOTE | 2018-02-27 03:34 | DIS ---
DATE OF ADMISSION: 02/25/2018 DATE OF DISCHARGE: 02/26/2018 DISCHARGE DIAGNOSES: 1. Right [place] ischemic cerebrovascular accident, subacute. 2. Hypertension, stable. 3. Hyperlipidemia. 4. Diabetes mellitus, type 2, on oral hypoglycemics. CONSULTATIONS: Dr. France with Neurology Service. PERTINENT LABORATORY AND X-RAY FINDINGS: Basic metabolic profile within normal limits. Total choles terol 112, triglycerides 58, HDL 40, LDL 60. CBC showed a white blood cell count of 14.0, hemoglobin 12, hematocrit 41, platelet count 357. Urine culture dated 02/25/2018 showed final report pen jeffry. CT of the brain without contrast dated 02/25/2018 showed no acute intracranial process. HOSPITAL COURSE: The patient was observed on the stroke unit after initially presenting with questio nable dysarthria and left-sided weakness in the context of recent ischemic right ge[place] CVA on 02/16/20 18. The patient is currently on dual antiplatelet therapy with aspirin and Plavix. The patient was continued on aspirin and Plavix therapy and monitored for clinical response. The patient was not obs erved with any focal deficits or worsening deficits during the hospital course. NIH scale remained a t 1 and the patient was ambulatory without assistance or difficulty. The patient tolerated regular o ral intake, voided appropriately and remained clinically stable. Telemetry monitoring showed a sinus mechanism with heart rates in the 70s. Overall, the patient remained clinically stable under observ ation. I have examined the patient at the time of discharge and discussed followup instructions. Th e patient verbalizes understanding and agreement and ready for discharge on 02/26/2018. DISCHARGE MEDICATIONS: 1. Enteric coated aspirin 325 mg p.o. daily. 2. Plavix 75 mg 1 tab p.o. daily. 3. Xanax 0.25 mg p.o. at bedtime. 4. Glipizide 10 mg p.o. daily. 5. Lisinopril 10 mg p.o. daily. 6. Metformin 500 mg p.o. t.i.d. 7. Zanaflex 4 mg p.o. at bedtime. 8. Ambien 10 mg p.o. at bedtime. 9. Lipitor 40 mg p.o. at bedtime. FOLLOWUP: The patient will follow up with Dr. Ananth Dent within 7 days of discharge. CONDITION ON DISCHARGE: Stable. ACTIVITY: Ad filiberto. DIET: Heart healthy and ADA. CODE STATUS: FULL. DISPOSITION: Home on 02/26/2018.
--- NOTE | 2018-02-28 18:06 | CON ---
DATE OF CONSULTATION: 02/26/2018 REFERRING PHYSICIAN: Ezekiel Gloria D.O. REASON FOR CONSULTATION: Left-sided numbness, slurred speech and facial droop. HISTORY OF PRESENT ILLNESS: Ms. Hart is a pleasant 57-year-old female, who has been consulted for evaluation of left-sided numbness, slurred speech and facial droop. The patient was recently admitted to the [facility] for acute onset of left-sided facial droop, slurred speech and left-sided weakness. She was found to have right pontine ischemic infarction and was evaluated by Dr. Anna George at that time. She had an extensive workup done at that time including CT angiogram of the head and neck and MRI of the brain and was discharged home on aspirin for secondary stroke prevention. She reports that yesterday she had the onset of slurred speech and facial droop. She did not feel any of these symptoms, however, her family noticed these changes, which prompted them to bring her to the [place] [facility]. She has been admitted for further workup and evaluation for these symptoms. She reports that her symptoms have since resolved. Her was at bedside who also reports that her symptoms have resolved since being admitted to the hospital. Currently, she denies any headache, chest pain, palpitation, numbness, tingling, weakness, difficulty with speech or swallowing or difficulty with gait or balance. PAST MEDICAL HISTORY: Significant for hypertension, hyperlipidemia, diabetes, history of recent stroke 2 weeks ago. PAST SURGICAL HISTORY: Significant for appendectomy, , hysterectomy, back surgery, ectopic surgery, small-bowel obstruction surgery. SOCIAL HISTORY: She denies smoking, alcohol use or illicit drug use. She is . 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 CURRENT MEDICATIONS: Please review MAR. ALLERGIES: Include MACRODANTIN and PENICILLIN. FAMILY HISTORY: Noncontributory. REVIEW OF SYSTEMS: As mentioned in the HPI, otherwise negative. PHYSICAL EXAMINATION: VITAL SIGNS: Blood pressure of 122/81, pulse of 76, temperature of 97.9, O2 sats of 100% on room air. GENERAL: Well-developed, well-nourished female, in no apparent distress. RESPIRATORY: Clear to auscultation bilaterally. CARDIOVASCULAR: Regular rate and rhythm. NEUROLOGIC: Mental status: The patient is awake, alert and oriented x3. Speech and language: Fluent speech. Cranial nerves: Pupils are 3 mm and reactive. Visual benoit are intact. External muscles are intact. No nystagmus is noted. Face is symmetric. Tongue and uvula are midline. Motor exam showed normal tone and bulk with 5/5 strength in both upper and lower extremities. Sensory: Sensation is intact and symmetric. Deep tendon reflexes , 2+ reflexes in both upper and lower extremities. Babinski: Plantar responses flexion bilaterally. Coordination intact to [id number] and finger tapping bilaterally. LABORATORY DATA: I reviewed, which included CBC, CMP, lipid profile and urinalysis, which is significant for WBC of 14.0, otherwise unremarkable. IMAGING STUDIES: CT head without contrast was reviewed, which showed no acute intracranial abnormality. IMPRESSION: 1. Transient ischemic attack. 2. Recent right pontine ischemic infarct. Ms. Hart is a pleasant 57-year-old female who presented with acute onset of left-sided numbness, facial droop and slurred speech, which has now resolved. She was admitted with right pontine ischemic infarct 2 weeks ago for which she had an extensive workup done. In my opinion, her symptoms may be deconditioning of the old stroke. At this time, there is no further neurologic workup needed from my standpoint. She is to continue with aspirin for secondary stroke prevention. I have advised her on controlling secondary stroke risk factors and I have advised her to continue Aspirin for secondary stroke prevention. No further neurologic workup needed from my standpoint. The patient is okay to be discharged to home. Thank you for your consultation. CHASE
== END 2018-02-26 16:40 | disposition home or self-care (01) ==
LOC: ERS 16:09 → 2SE 22:50
PROVIDERS: ADMIT Internal Medicine; ATTEND Internal Medicine
DX: I63.8 Other cerebral infarction (principal); R42 Dizziness and giddiness; R47.81 Slurred speech; R29.810 Facial weakness; R53.1 Weakness; I10 Essential (primary) hypertension; E78.5 Hyperlipidemia, unspecified; E11.9 Type 2 diabetes mellitus without complications; G89.29 Other chronic pain; M54.9 Dorsalgia, unspecified; Z86.73 Personal history of transient ischemic attack (TIA), and cerebral infarction without residual deficits; Z79.02 Long term (current) use of antithrombotics/antiplatelets; Z79.84 Long term (current) use of oral hypoglycemic drugs; Z79.82 Long term (current) use of aspirin; Z79.899 Other long term (current) drug therapy; Z88.0 Allergy status to penicillin; Z88.8 Allergy status to other drugs, medicaments and biological substances
CPT/HCPCS: 36415; 36416; 70450; 80053; 80061; 81003; 82553; 84484; 85025; 87086; 93005; 93306; 96372; A4216; G0378; G8978-GP-CI; G8979-GP-CI; G8980-GP-CI; G8987-GO-CI; G8988-GO-CI; G8989-GO-CI; G8996-GN-CH; G8997-GN-CH; G8998-GN-CH; J1650

== ENCOUNTER 2018-05-09 12:31 | Emergency (ER) | payer BC ==
[2018-05-09] MEDS ORDERED: Ketorolac Tromethamine 30 MG/ML VIAL ONE (12:57)
== END 2018-05-09 13:38 | disposition home or self-care (01) ==
LOC: ERS 12:31
DX: G56.02 Carpal tunnel syndrome, left upper limb (principal); I10 Essential (primary) hypertension; E78.5 Hyperlipidemia, unspecified; E11.9 Type 2 diabetes mellitus without complications; Z86.73 Personal history of transient ischemic attack (TIA), and cerebral infarction without residual deficits; F17.210 Nicotine dependence, cigarettes, uncomplicated; Z79.82 Long term (current) use of aspirin; Z79.84 Long term (current) use of oral hypoglycemic drugs; Z79.899 Other long term (current) drug therapy
CPT/HCPCS: 96372; J1885

== ENCOUNTER 2019-01-24 07:36 | Emergency (ER) | payer BC ==
[2019-01-24 08:32] LABS: #Eosinphils 0.2 thou/uL (0.0-0.7); #Lymphocytes 2.1 thou/uL (1.20-3.40); #Monocytes 0.5 thou/uL (0.11-0.59); %Basophils 0.6 % (0.0-1.0); %Eosinophils 2.1 % (0.0-10.0); %Lymphocytes 26.7 % (21.0-51.0); %Monocytes 6.5 % (0.0-10.0); %Neutrophils 64.1 % (42.0-75.0); Hemoglobin 10.1 g/dL (12.0-16.0); Mean Corpuscular HGB CONC 30.6 g/dL (32.0-36.0); Mean Corpuscular Hemoglobin 20.8 pg (27.0-31.0); Mean Corpuscular Volume 67.9 fL (78.0-98.0); Mean Platelet Volume 11.4 fL (7.4-10.4); Platelet Count 290 thou/uL (130-400); RBC Distribution Width 17.2 % (11.5-14.5); Red Blood Cell (RBC) Count 4.86 mill/uL (4.20-5.40); White Blood Cell (WBC) Count 7.8 thou/uL (4.8-10.8)
[2019-01-24 08:44] LABS: ALT (SGPT) 8 U/L (8-55); AST (SGOT) 10 U/L (5-34); Alkaline Phosphatase 115 U/L (40-150); Anion Gap 12 mmol/L (10-20); BUN (Urea Nitrogen) 7 mg/dL (9.8-20.1); Bilirubin, Total 0.7 mg/dL (0.2-1.2); Calc. Creatinine Clearance 0 mL/min (70-130); Calcium 9.5 mg/dL (7.8-10.44); Carbon Dioxide 23 mmol/L (22-29); Chloride 102 mmol/L (98-107); Estimated GFR-MDRD 85; Globulin 3.5 g/dL (2.4-3.5); Glucose 313 mg/dL (70-105); Potassium 3.2 mmol/L (3.5-5.1); Protein, Total 7.5 g/dL (6.0-8.3); Sodium 134 mmol/L (136-145)
--- NOTE | 2019-01-24 08:47 | CT ---
Exam: Head CT without contrast HISTORY: Pain. COMPARISON: none FINDINGS: Hemorrhage: No intraparenchymal hemorrhage or extra-axial hematoma. Brain parenchyma: Cortical snell-white matter differentiation is preserved. No mass effect or midline shift. Basilar cisterns are patent.Stable white matter hypodensities due to chronic small vessel ischemic change. Stable remote lacunar infarct involving the right midbrain. Ventricular system: Ventricles and sulci are patent and symmetric. Calvarium: Intact. Sinuses and mastoid air cells: Adequate aeration. IMPRESSION: No acute intracranial process.
[2019-01-24 09:05] LABS: Hypochromia MODERATE=16-30 cells (100X) (0-5/hpf); MDiff Complete? YES; Microcytosis MODERATE=15-30 cells (100X) (0-5/hpf); Ovalocytes SLIGHT = 2-5 cells (100X) (0-1/hpf); Platelet Morphology Comment Appears Adequate; Polychromasia SLIGHT = 2-3 cells (100X) (0-2/hpf); Reflex for Review?? YES
== END 2019-01-24 09:49 | disposition home or self-care (01) ==
LOC: ERS 07:36
DX: M79.10 Myalgia, unspecified site (principal); E87.6 Hypokalemia; I10 Essential (primary) hypertension; E78.00 Pure hypercholesterolemia, unspecified; E11.9 Type 2 diabetes mellitus without complications; Z86.73 Personal history of transient ischemic attack (TIA), and cerebral infarction without residual deficits; F17.210 Nicotine dependence, cigarettes, uncomplicated; Z79.899 Other long term (current) drug therapy; Z79.82 Long term (current) use of aspirin
CPT/HCPCS: 36415; 70450; 80053; 85025; 85060

== ENCOUNTER 2019-05-31 09:50 | Emergency (ER) | payer BC ==
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
== END 2019-05-31 11:48 | disposition home or self-care (01) ==
LOC: ERS 09:50
DX: S06.0X9A Concussion with loss of consciousness of unspecified duration, initial encounter (principal); E11.9 Type 2 diabetes mellitus without complications; E78.5 Hyperlipidemia, unspecified; I10 Essential (primary) hypertension; F17.210 Nicotine dependence, cigarettes, uncomplicated; Z86.73 Personal history of transient ischemic attack (TIA), and cerebral infarction without residual deficits; V89.2XXA Person injured in unspecified motor-vehicle accident, traffic, initial encounter
CPT/HCPCS: 70450

== ENCOUNTER 2019-07-17 19:58 | Observation (INO) | payer BC ==
--- NOTE | 2019-07-17 20:22 | RAD ---
XR Chest 1 View Portable HISTORY: Chest pain COMPARISON: 01/24/2017 FINDINGS: The heart size is normal. The lungs are well expanded without focal areas of consolidation, pneumothorax or pleural effusions. IMPRESSION: No radiographic evidence of acute cardiopulmonary process.
[2019-07-17 20:27] LABS: Hemoglobin 9.6 g/dL (12.0-16.0); Mean Corpuscular HGB CONC 30.5 g/dL (32.0-36.0); Mean Corpuscular Hemoglobin 21.1 pg (27.0-31.0); Mean Corpuscular Volume 69.1 fL (78.0-98.0); Platelet Count 297 thou/uL (130-400); RBC Distribution Width 17.1 % (11.5-14.5); Red Blood Cell (RBC) Count 4.54 mill/uL (4.20-5.40); White Blood Cell (WBC) Count 4.4 thou/uL (4.8-10.8)
[2019-07-17 20:28] LABS: #Lymphocytes 1.8 thou/uL (1.20-3.40); #Monocytes 0.5 thou/uL (0.11-0.59); %Basophils 0.8 % (0.0-1.0); %Lymphocytes 41.8 % (21.0-51.0); %Monocytes 11.7 % (0.0-10.0); %Neutrophils 44.8 % (42.0-75.0)
[2019-07-17 20:47] LABS: MDiff Complete? YES; Microcytosis SLIGHT = 6-15 cells (100X) (0-5/hpf)
[2019-07-17 20:51] LABS: ALT (SGPT) 12 U/L (8-55); AST (SGOT) 23 U/L (5-34); Alkaline Phosphatase 81 U/L (40-110); Anion Gap 15 mmol/L (10-20); BUN (Urea Nitrogen) 8 mg/dL (9.8-20.1); Bilirubin, Total 0.2 mg/dL (0.2-1.2); CK (CPK) 331 U/L (29-168); Calc. Creatinine Clearance 0 mL/min (70-130); Calcium 8.5 mg/dL (7.8-10.44); Carbon Dioxide 21 mmol/L (22-29); Chloride 107 mmol/L (98-107); Estimated GFR-MDRD Greater than 90; Globulin 3.2 g/dL (2.4-3.5); Glucose 123 mg/dL (70-105); Lipase 54 U/L (8-78); Potassium 3.8 mmol/L (3.5-5.1); Protein, Total 7.2 g/dL (6.0-8.3); Sodium 139 mmol/L (136-145)
[2019-07-17] MEDS ORDERED: Ondansetron PF 4 MG/2 ML Vial ONE (22:52)
[2019-07-17] MEDS ORDERED: Nitroglycerin 2% Ointment 1 INCH/1 GM Packet ONE (22:52)
[2019-07-17] MEDS ORDERED: Morphine 4 MG/ML VIAL ONE (22:52)
[2019-07-17] MEDS ORDERED: Acetaminophen 325 MG TAB PO PRN (23:09)
[2019-07-17] MEDS ORDERED: Acetaminophen 650 MG Suppository PR PRN (23:09)
[2019-07-17 23:37] LABS: Troponin I Less than 0.010 ng/mL (< 0.028)
[2019-07-18 00:20] LABS: Lactic Acid 2.2 mmol/L (0.5-2.2)
[2019-07-18] MEDS ORDERED: Dextrose 50% Abboject 50 ML SYRINGE SLOW IVP PRN (00:26)
[2019-07-18] MEDS ORDERED: Dextrose 5% in Water 1,000 ML IV PRN (00:26)
[2019-07-18] MEDS ORDERED: HumaLOG 300 UNITS/3 ML VIAL SC PRN ×2 (00:26)
[2019-07-18] MEDS ORDERED: Azithromycin 500 MG VIAL ONE (00:57)
--- NOTE | 2019-07-18 00:57 | HP ---
TIME OF ASSESSMENT: 2200 hours. CHIEF COMPLAINT: Chest pain. HISTORY OF PRESENT ILLNESS: Ms. Hart is a 58-year-old woman presenting with chest pain, which has been intermittent since Thursday. The patient states that it is worse with deep inspiration and located in the center of her chest, at times wrapping down and around her left breast, also sharp on the left lateral chest. The patient reports having cough for the last week, productive for yellow sputum. She states she has had coughing fits, which does make her chest generally sore, but has had no reproducible pain with palpation and it is not exacerbated by movement. She has a known history of CAD and had 2 stents placed two years ago with no further followup with Cardiology since then. She also has a history of hypertension and hyperlipidemia as well as diabetes. She had a previous stroke with mild residual left-sided deficits and left-sided droop. At this present time, she reports having pain that is 9/10 in severity. Does not appear to be in any distress. The patient states she spiked a temperature today of 103 and prior to today has been having low grade temperatures. The patient denies having any hemoptysis. No lower leg swelling or calf tenderness. Denies any nausea, vomiting, or diaphoresis. No abdominal pain or cramping. Denies any diarrhea. All other review of systems negative. ED COURSE: In the emergency department, the patient was given Nitro-Bid as well as morphine 4 mg, and Zofran. Her blood pressure diminished from 134/89 to 88/67. Therefore, the Nitro-Bid was immediately removed within 5 minutes of placing it and upon recheck of her blood pressure, it came up to 143/87. She had an EKG done showing normal sinus rhythm with nonspecific ST and T-wave changes. LABORATORY DATA: Laboratory studies done showed a negative troponin. CK elevated at 331. White count was 4.4, hemoglobin 9.6, and it appears she is chronically anemic. Hematocrit 31.4. Platelets 297. Sodium 139, and potassium 3.8. LFTs unremarkable. Chest x-ray has been done showing no radiographic evidence of acute cardiopulmonary process. PAST MEDICAL HISTORY: 1. Hyperlipidemia. 2. Diabetes mellitus. 3. Hypertension. 4. CVA x2 with left-sided deficits, mild dysphagia and left facial droop. 5. Chronic back pain. 6. CAD. PAST SURGICAL HISTORY: 1. Appendectomy. 2. x3. 3. Hysterectomy. 4. Back surgery. 5. Intestinal abscess, fallopian tubes. 6. Ectopic . 7. Small-bowel obstruction. 8. Coronary artery stents x2. 9. Cyst removed from left breast. SOCIAL HISTORY: The patient smokes half a pack per day, but recently due to subsequent cough with smoking, she has only been able to smoke one cigarette a day and states she only takes 2 to 3 puffs. patient denies having any hemoptysis. No lower leg swelling or calf tenderness. Denies any nausea, vomiting, or diaphoresis. No abdominal pain or cramping. Denies any diarrhea. All other review of systems negative. ALLERGIES: MACRODANTIN, NITROFURANTOIN, AND PENICILLINS. MEDICATIONS: Current medications, please . PHYSICAL EXAMINATION: GENERAL: The patient appears well developed, well nourished, and is in no apparent distress. She appears to be sitting comfortably on the stretcher. VITAL SIGNS: Temperature 98.1, pulse 89, respirations 14, O2 saturation 96% on room air, and blood pressure 143/87. HEENT: Normocephalic and atraumatic. Pupils are equal, round, reactive to light. Sclerae without icterus. Oropharynx is clear. NECK: Supple. LUNGS: Clear to auscultation bilaterally with diminished breath sounds at the bilateral bases, likely due to decreased inspiratory effort. The patient denies any discomfort at present with deep inspiration. CARDIAC: Notable for faint gallop. No audible murmur. No chest wall tenderness on palpation. ABDOMEN: Soft, nontender, and nondistended. Normoactive bowel sounds present. No guarding or rigidity. No renal angle tenderness. EXTREMITIES: No edema or calf tenderness. NEUROLOGIC: Alert and oriented x3. No acute neuro deficits on exam. INVESTIGATIONS: As mentioned above in HPI. IMPRESSION AND PLAN: Ms. Hart is a 58-year-old woman, who is being admitted for management of the following. 1. Chest pain. The patient admitted for acute coronary syndrome rule out. She has had infective type symptoms. Chest x-ray unremarkable. Given pleuritic type pain, we will obtain a D-dimer. If elevated, we will complete a CT angiogram to rule out possibility of pulmonary embolism. If negative, we will obtain a plain CT chest without contrast to further assess for underlying pneumonia given fever and productive cough. We will add lactic acid to her labs. No evidence of leukocytosis. We will test for flu. We will continue to trend troponins. Continue cardiac monitoring. It does not appear the patient has been given aspirin. Therefore, we will go ahead and give her a dose of 325 mg. We will check TSH, mag, and morning lipid panel. 2. Hypertension. Monitor blood pressure. Reconcile home medications if appropriate once verified. 3. Diabetes mellitus. Monitor blood glucose and initiate sliding scale. 4. History of cerebrovascular accident. The patient reported mild dysphagia. Complete bedside dysphagia screen to assess risks for aspiration. 5. Gastrointestinal prophylaxis with famotidine. 6. Chronic obstructive pulmonary disease. Ruben [email or web address] 7. Code status full. Surrogate decision maker is her daughter, Fiordaliza Hart. Case discussed with attending, who agrees with plan of care as described above. Job ID: [id number]
[2019-07-18] MEDS: Azithromycin 500 MG in Sodium Chloride 0.9% 250 ML 250 ML IVPB SCH (01:05)
[2019-07-18 02:46] LABS: Troponin I Less than 0.010 ng/mL (< 0.028)
[2019-07-18 03:53] LABS: #Basophils 0.1 thou/uL (0.0-0.2); #Eosinphils 0.1 thou/uL (0.0-0.7); #Lymphocytes 1.8 thou/uL (1.20-3.40); #Monocytes 0.5 thou/uL (0.11-0.59); #Neutrophils 1.7 thou/uL (1.40-6.50); %Basophils 1.3 % (0.0-1.0); %Eosinophils 1.6 % (0.0-10.0); %Lymphocytes 43.4 % (21.0-51.0); %Monocytes 12.7 % (0.0-10.0); Hemoglobin 9.1 g/dL (12.0-16.0); Mean Corpuscular HGB CONC 28.4 g/dL (32.0-36.0); Mean Corpuscular Hemoglobin 19.8 pg (27.0-31.0); Mean Corpuscular Volume 69.6 fL (78.0-98.0); Mean Platelet Volume 11.2 fL (7.4-10.4); Platelet Count 272 thou/uL (130-400); RBC Distribution Width 17.3 % (11.5-14.5); White Blood Cell (WBC) Count 4.2 thou/uL (4.8-10.8)
[2019-07-18 04:12] LABS: Anion Gap 11 mmol/L (10-20); BUN (Urea Nitrogen) 7 mg/dL (9.8-20.1); Calc. Creatinine Clearance 0 mL/min (70-130); Calcium 8.8 mg/dL (7.8-10.44); Carbon Dioxide 21 mmol/L (22-29); Chloride 109 mmol/L (98-107); Estimated GFR-MDRD Greater than 90; Glucose 111 mg/dL (70-105); Potassium 3.5 mmol/L (3.5-5.1); Sodium 137 mmol/L (136-145)
--- NOTE | 2019-07-18 07:33 | CT ---
PRELIMINARY REPORT/[facility]/EMERGENCY AFTER HOURS PROCEDURE: EXAM: CTA Chest with Intravenous Contrast CLINICAL HISTORY: ER 26... F58 presents to the ED with c/o fever, nasal congestion, productive cough, and chest pain x 4 days. Pt states CP became worse tonight. Pt denies hemoptysis TECHNIQUE: Axial CTA images of the chest with intravenous contrast. MIP reconstructed images were created and re viewed. Coronal and sagittal reformatted images are provided. Exam DLP is [id number]. CTDI 61.67. CONTRAST: With; 100ML Isovue-370 intravenous contrast. No oral contrast. COMPARISON: None provided. FINDINGS: PULMONARY ARTERIES There is no intraluminal filling defect suspicious for PE. Pulmonary arteries are normal caliber. AORTA No thoracic aortic aneurysm or dissection. Mild atherosclerotic calcification. There is calcific at herosclerotic plaque at the origin of the left subclavian artery resulting in severe stenosis. LUNGS No focal consolidation. Diffuse groundglass opacity in the lungs with patchy areas of air trapping. No pulmonary mass. PLEURAL SPACES No pleural effusion. No pneumothorax. HEART AND MEDIASTINUM No cardiomegaly. No significant pericardial effusion. Coronary artery calcifications. LYMPH NODES No lymphadenopathy. Prominent bilateral hilar lymph nodes are not pathologically enlarged. BONES No focal osseous abnormality or acute fracture. Mild degenerative changes of the spine. CHEST WALL AND UPPER ABDOMEN Images through the upper abdomen are unremarkable. The chest wall is unremarkable. IMPRESSION: 1. No evidence of pulmonary embolism. 2. Patchy areas of ground glass with air trapping which is suggestive of small airways disease to in clude bronchiolitis or asthma. 3. Calcified plaque at the origin of the left subclavian artery which results in severe stenosis or occlusion. Correlate for symptoms of subclavian steal phenomenon and consider follow-up with vascula r surgery with consideration for further evaluation with ultrasound of the carotid and vertebral jignesh sherry. ELECTRONICALLY SIGNED BY: Logan Galan M.D. Jul 18, 2019 1:26:26 AM GAUGE CHECKER This report is intended for review by the ordering physician only, in accordance of law. If you recei ve this report in error, please call [facility] at [phone]. FINAL REPORT CT ANGIOGRAM OF CHEST: Date: 07/18/2019 HISTORY: Pleuritic chest pain. Elevated D-Dimer. COMPARISON: 01/24/17. TECHNIQUE: CT angiogram of chest performed in axial plane. Three dimensional reformatted images are submitted fo r interpretation. FINDINGS: Patchy ground-glass opacities lung parenchyma. Trachea and central bronchi are patent. No pleural eff usion or pneumothorax. Adequate contrast opacification of pulmonary arterial system to level of segme ntal arteries. No filling defect to suggest thromboembolism. Visualized aorta has a normal caliber. S table mediastinal lymphadenopathy. Upper abdomen is grossly unremarkable. IMPRESSION: No evidence of pulmonary artery embolism to level of segmental arteria. This report is in agreement with the initial report by [facility]. POS: PPP
[2019-07-18 08:54] VITALS: BMI 31.0
[2019-07-18] MEDS ORDERED: Famotidine/PF 20 mg/2ml Vial SLOW IVP SCH (09:00)
--- NOTE | 2019-07-18 09:31 | PDOC.HOSPP ---
- Subjective Encounter Date: 07/18/19 Encounter Time: 11:30 Subjective: Patient with persistent left chest pain, pressure, radiating to left shoulder. Had similar pain during previous stroke. No change with cough/breaths/palpation chest wall. A bit better with meds in the ER. Recent bad URI, mostly resolved now. - Objective Vital Signs & Weight: Vital Signs (12 hours) Temp Pulse Resp BP Pulse Ox 07/18/19 07:55 97.6 F 74 18 180/84 H 93 L Weight Weight 222 lb 6.4 oz Result Diagrams: 07/18/19 03:43 07/18/19 03:43 Hospitalist ROS - Review of Systems Constitutional: denies: fever, chills Respiratory: denies: cough, shortness of breath Cardiovascular: reports: chest pain. denies: palpitations, orthopnea Gastrointestinal: denies: nausea, vomiting, abdominal pain Genitourinary: denies: dysuria, hematuria - Medication Medications: Active Medications Generic Name Dose Route Start Last Admin Trade Name Freq PRN Reason Stop Dose Admin Azithromycin 500 mg/ Sodium 250 mls @ 250 mls/hr 07/18/19 01:00 07/18/19 01: 05 Chloride IVPB 250 mls Q24HR JL Administration - Exam General Appearance: NAD ENT: moist mucosa Heart: RRR, no murmur, no gallops, no rubs Respiratory: CTAB, no wheezes, no rales, no ronchi, normal chest expansion Respiratory - other findings: non-tender to palpation Gastrointestinal: soft, non-tender, non-distended, normal bowel sounds Psychiatric: normal affect, normal behavior, A&O x 3 Hosp A/P (1) Chest pain, rule out acute myocardial infarction Code(s): R07.9 - CHEST PAIN, UNSPECIFIED Status: Acute (2) CAD (coronary artery disease) Code(s): I25.10 - ATHSCL HEART DISEASE OF [place] CORONARY ARTERY W/O ANG PCTRS Status: Chronic Qualifiers: Coronary Disease-Associated Artery/Lesion type: [place] artery [place] vs. transplanted heart: [place] heart Associated angina: without angina Qualified Code(s): I25.10 - Atherosclerotic heart disease of [place] coronary artery without angina pectoris (3) CVA (cerebral vascular accident) Code(s): I63.9 - CEREBRAL INFARCTION, UNSPECIFIED Status: Chronic Qualifiers: CVA mechanism: thrombosis Laterality of affected vessel: right (4) Hemiplegia affecting left nondominant side Code(s): G81.94 - HEMIPLEGIA, UNSPECIFIED AFFECTING LEFT NONDOMINANT SIDE Status: Chronic Qualifiers: Hemiplegia type: spastic Hemiplegia etiology: late effect of cerebrovascular disease Cerebrovascular disease type: cerebral infarction Qualified Code(s): I69.354 - Hemiplegia and hemiparesis following cerebral infarction affecting left non-dominant side (5) DM type 2 (diabetes mellitus, type 2) Status: Chronic Qualifiers: Diabetes mellitus extermination supervisor insulin use: without extermination supervisor use Diabetes mellitus complication status: with unspecified complications (6) HLD (hyperlipidemia) Code(s): E78.5 - HYPERLIPIDEMIA, UNSPECIFIED Status: Chronic Qualifiers: Hyperlipidemia type: pure hypercholesterolemia Qualified Code(s): E78.00 - Pure hypercholesterolemia, unspecified; E78.0 - Pure hypercholesterolemia (7) Hypertension Code(s): I10 - ESSENTIAL (PRIMARY) HYPERTENSION Status: Chronic Qualifiers: Hypertension type: essential hypertension Qualified Code(s): I10 - Essential (primary) hypertension (8) Tobacco abuse Code(s): Z72.0 - TOBACCO USE Status: Chronic - Plan Patient with neg CTA for PE, but does have significant left subclavian stenosis Chest pain worrisome for possible cardiac. Multiple risk factors. Will need stress test. CM neg x3 ECHO pending
[2019-07-18] MEDS: Famotidine 20 MG TAB PO SCH ×2 (09:41→20:15)
[2019-07-18] MEDS ORDERED: Iopamidol-370 76% 500 ML 1 ML ONE (15:42)
[2019-07-18] MEDS ORDERED: hydrALAZINE 20 MG/ML VIAL SLOW IVP SCH (19:00)
[2019-07-18 22:23] LABS: Bacteria/HPF None Seen HPF (None Seen); Bilirubin Negative (Negative); Blood, Urine Negative (Negative); Clarity Clear (Clear); Glucose, Urine (Dipstick) Normal (Negative); Leukocyte Negative Leu/uL (Negative); Mucous/LPF Rare LPF (<2+); Nitrite Negative (Negative); Protein, Urine (Dipstick) Negative (Neg-Trace); RBC/HPF 0-3 HPF (0-3); Squamous Epithelial 0-3 HPF (0-3); Urobilinogen Normal mg/dL (Less than 2); WBC/HPF 0-3 HPF (0-3)
[2019-07-18 22:25] LABS: Urine Culture Reflex No No
[2019-07-19 00:01] LABS: CKMB 0.7 ng/mL (0-6.6)
[2019-07-19] MEDS: Azithromycin 500 MG in Sodium Chloride 0.9% 250 ML 250 ML IVPB SCH (00:45)
[2019-07-19] MEDS ORDERED: hydrALAZINE 20 MG/ML VIAL SLOW IVP PRN (00:47)
[2019-07-19] MEDS ORDERED: hydrALAZINE 20 MG/ML VIAL ONE (00:50)
--- NOTE | 2019-07-19 07:37 | PDOC.HOSPP ---
- Subjective Encounter Date: 07/19/19 Encounter Time: 11:00 Subjective: Patient without further chest pain. No other complaints. - Objective Vital Signs & Weight: Vital Signs (12 hours) Temp Pulse Resp BP BP Pulse Ox 07/19/19 07:02 100 16 96 07/19/19 01:15 146/81 H 07/19/19 00:51 76 224/102 H 07/18/19 23:37 76 16 97 07/18/19 23:00 98.9 F 71 16 180/81 H 97 07/18/19 21:15 160/90 H 07/18/19 20:15 212/88 H 07/18/19 20:14 84 212/88 H 07/18/19 19:52 98.7 F 84 18 230/97 H 94 L Weight Weight 222 lb 6.4 oz I&O: 07/18/19 07/19/19 07/20/19 06:59 06:59 06:59 Intake Total 1770 Output Total 250 Balance 1520 Result Diagrams: 07/18/19 03:43 07/18/19 03:43 Additional Labs: Accuchecks 07/19/19 07/18/19 07/18/19 05:09 20:50 18:24 POC Glucose 152 H 141 H 114 H 07/18/19 11:24 POC Glucose 141 H Hospitalist ROS - Review of Systems Constitutional: denies: fever, chills Respiratory: denies: cough, shortness of breath Cardiovascular: denies: chest pain, palpitations, orthopnea Gastrointestinal: denies: nausea, vomiting, abdominal pain - Medication Medications: Active Medications Generic Name Dose Route Start Last Admin Trade Name Barberq PRN Reason Stop Dose Admin Acetaminophen 650 mg 07/17/19 23:09 07/18/19 20:21 Tylenol PO 650 mg Q4H PRN Administration Headache/Fever/Mild Pain (1-3) Albuterol/Ipratropium 3 ml 07/18/19 01:00 07/19/19 07:02 Duoneb NEB 3 ml [id number] JL Administration Famotidine 20 mg 07/18/19 09:00 07/18/19 20:15 Pepcid PO 20 mg BID JL Administration Azithromycin 500 mg/ Sodium 250 mls @ 250 mls/hr 07/18/19 01:00 02/11/20 00: 45 Chloride IVPB 250 mls Q24HR JL Administration - Exam General Appearance: NAD, awake alert ENT: moist mucosa Heart: RRR, no murmur, no gallops, no rubs Respiratory: CTAB, no wheezes, no rales, no ronchi Gastrointestinal: soft, non-tender, non-distended, normal bowel sounds Psychiatric: normal affect, normal behavior, A&O x 3 Hosp A/P (1) Chest pain, rule out acute myocardial infarction Code(s): R07.9 - CHEST PAIN, UNSPECIFIED Status: Acute (2) CAD (coronary artery disease) Code(s): I25.10 - ATHSCL HEART DISEASE OF [place] CORONARY ARTERY W/O ANG PCTRS Status: Chronic Qualifiers: Coronary Disease-Associated Artery/Lesion type: [place] artery [place] vs. transplanted heart: [place] heart Associated angina: without angina Qualified Code(s): I25.10 - Atherosclerotic heart disease of [place] coronary artery without angina pectoris (3) CVA (cerebral vascular accident) Code(s): I63.9 - CEREBRAL INFARCTION, UNSPECIFIED Status: Chronic Qualifiers: CVA mechanism: thrombosis Laterality of affected vessel: right (4) Hemiplegia affecting left nondominant side Code(s): G81.94 - HEMIPLEGIA, UNSPECIFIED AFFECTING LEFT NONDOMINANT SIDE Status: Chronic Qualifiers: Hemiplegia type: spastic Hemiplegia etiology: late effect of cerebrovascular disease Cerebrovascular disease type: cerebral infarction Qualified Code(s): I69.354 - Hemiplegia and hemiparesis following cerebral infarction affecting left non-dominant side (5) DM type 2 (diabetes mellitus, type 2) Status: Chronic Qualifiers: Diabetes mellitus adjunct faculty for medical terminology insulin use: without adjunct faculty for medical terminology use Diabetes mellitus complication status: with unspecified complications (6) HLD (hyperlipidemia) Code(s): E78.5 - HYPERLIPIDEMIA, UNSPECIFIED Status: Chronic Qualifiers: Hyperlipidemia type: pure hypercholesterolemia Qualified Code(s): E78.00 - Pure hypercholesterolemia, unspecified; E78.0 - Pure hypercholesterolemia (7) Hypertension Code(s): I10 - ESSENTIAL (PRIMARY) HYPERTENSION Status: Chronic Qualifiers: Hypertension type: essential hypertension Qualified Code(s): I10 - Essential (primary) hypertension (8) Tobacco abuse Code(s): Z72.0 - TOBACCO USE Status: Chronic (9) Mild aortic stenosis Code(s): I35.0 - NONRHEUMATIC AORTIC (VALVE) STENOSIS Status: Chronic - Plan Patient with neg CTA for PE, but does have significant left subclavian stenosis - will need outpatient CV followup Chest pain worrisome for possible cardiac. Multiple risk factors. Stress test done this AM, need to do resting tomorrow. CM neg x3 ECHO EF 55-60%, diastolic dysfunction, mild aortic stenosis
[2019-07-19 07:51] VITALS: BP 152/98
[2019-07-19] MEDS ORDERED: Regadenoson 0.4 MG/5 ML SYRINGE ONE (10:28)
[2019-07-19] MEDS: Famotidine 20 MG TAB PO SCH (10:33)
[2019-07-19 11:51] VITALS: TEMP 98.4
--- NOTE | 2019-07-20 03:01 | DIS ---
DATE OF ADMISSION: 07/17/2019 DATE OF DISCHARGE: 07/19/2019 PRIMARY CARE PHYSICIAN: Dr. Ananth Dent. REASON FOR ADMISSION: Chest pain. DIAGNOSES AT THE TIME OF DISCHARGE: 1. Chest pain, possibly cardiac in origin. 2. Coronary artery disease. 3. Previous stroke. 4. Diabetes mellitus type 2. 5. Hyperlipidemia. 6. Hypertension. 7. Tobacco abuse. 8. Mild aortic stenosis. 9. Left subclavian stenosis. PROCEDURES: 1. CT of the chest and thorax with contrast showing no evidence for pulmonary embolism, but there is some patchy areas of ground-glass with air trapping suggestive of small airway disease and calcified plaque at the origin of the left subclavian artery, which resulted in severe stenosis or occlusion. 2. Echocardiogram showing ejection fraction of 55% to 60%, diastolic dysfunction and mild aortic stenosis. 3. Nuclear medicine stress test, which was only retirement done as the patient left [facility]AT[facility] before completing the 2nd part of the test. CONSULTATIONS: None. SUMMARY OF HOSPITAL COURSE: This is a 58-year-old woman who presented with chest pain, on and off. She has a history of coronary disease and previous stents, but no followup with Cardiology. She also has a history of previous strokes, supposed to be on aspirin and Plavix. However, when calling her pharmacy, it looks like she has not filled her medicines except for her chronic pain medications over the last year. The patient was monitored in the hospital. She had negative cardiac markers. She had a nuclear medicine stress test to risk stratify her. The first portion of the stress test was done and she was supposed to get the resting part tomorrow. However, patient became disgruntled with having to stay in the hospital so long and she decided to leave ANAT[facility]. She was warned about the possibility of heart attack or , but she determined to leave [facility]AT[facility] anyway. I did tell her that, if she left that she needs to follow up with Cardiology and CV Surgery about her heart, her aortic stenosis and her left subclavian stenosis. Job ID: [id number]
--- NOTE | 2019-07-20 08:50 | NM ---
EXAM: Nuclear medicine cardiac perfusion examination with ejection fraction HISTORY: Chest pain. The patient has stress images only done and left AGAINST MEDICAL ADVICE before t he rest images could be performed. COMPARISON: 01/25/2017 TECHNIQUE: Stress images: 33 mCi of technetium 9M sestamibi; Lexiscan COMPARISON: None FINDINGS: Tomographic images: No perfusion defects with stress on the nonattenuation corrected images. Gated images: Normal wall motion and ejection fraction of 45%. EDV: 119 mL LHR: 0.3 IMPRESSION: No perfusion defects seen with stress
--- NOTE | 2019-07-23 14:08 | EKG ---
Test Reason : Blood Pressure : / mmHG Vent. Rate : 082 BPM Atrial Rate : 082 BPM P-R Int : 138 ms QRS Dur : 078 ms QT Int : 400 ms P-R-T Axes : 059 051 013 degrees QTc Int : 467 ms Normal sinus rhythm Minimal voltage criteria for LVH, may be normal variant Nonspecific ST and T wave abnormality Prolonged QT Abnormal ECG Confirmed by ZEKE SANCHEZ DO ([id number]), society editor YASMEEN HERNANDEZ ([id number]) on 07/23/2019 2:08:27 PM Referred By: Confirmed By:ZEKE SANCHEZ DO
== END 2019-07-19 14:17 | disposition home or self-care (01) ==
LOC: ERS 19:58 → ERHOLD 22:20 → 2SW 07-18 07:58
PROVIDERS: ADMIT Internal Medicine; ATTEND Emergency Medicine
DX: R07.81 Pleurodynia (principal); I25.10 Atherosclerotic heart disease of native coronary artery without angina pectoris; I69.392 Facial weakness following cerebral infarction; I69.354 Hemiplegia and hemiparesis following cerebral infarction affecting left non-dominant side; I69.391 Dysphagia following cerebral infarction; R13.10 Dysphagia, unspecified; E11.9 Type 2 diabetes mellitus without complications; E78.5 Hyperlipidemia, unspecified; I10 Essential (primary) hypertension; F17.210 Nicotine dependence, cigarettes, uncomplicated; I70.0 Atherosclerosis of aorta; I70.208 Unspecified atherosclerosis of native arteries of extremities, other extremity; G89.29 Other chronic pain; M54.9 Dorsalgia, unspecified; J44.9 Chronic obstructive pulmonary disease, unspecified; Z53.29 Procedure and treatment not carried out because of patient's decision for other reasons; Z79.899 Other long term (current) drug therapy; Z88.0 Allergy status to penicillin; Z88.1 Allergy status to other antibiotic agents; Z95.5 Presence of coronary angioplasty implant and graft
CPT/HCPCS: 36415; 36416; 71045; 71275; 78452; 80048; 80053; 81001; 82550; 82553; 83605; 83690; 83735; 83880; 84443; 84484; 85025; 85379; 87070; 87077; 87186; 87205; 87633; 93005; 93010; 93017; 93306; 94640; 94760; 96365; 96374; 96375; 96376; A9500; G0378; J0360; J0456; J2270; J2405; J2785; J7050; J7620; Q9967

== ENCOUNTER 2020-09-18 18:11 | Emergency (ER) | payer BC ==
[2020-09-18] MEDS ORDERED: Metoclopramide HCl 10 MG/2 ML VIAL ONE (19:07)
[2020-09-18] MEDS ORDERED: Ketorolac Tromethamine 30 MG/ML VIAL ONE (19:07)
[2020-09-18] MEDS ORDERED: diphenhydrAMINE 50 MG/ML VIAL ONE (19:07)
[2020-09-18] MEDS ORDERED: Dexamethasone 10 MG/ML VIAL ONE (20:45)
[2020-09-18] MEDS ORDERED: hydrALAZINE 20 MG/ML VIAL ONE (20:54)
[2020-09-18] MEDS ORDERED: Morphine 2 MG/ML VIAL ONE (20:54)
== END 2020-09-18 21:39 | disposition home or self-care (01) ==
LOC: ERS 18:11
DX: R51.9 Headache, unspecified (principal); E78.5 Hyperlipidemia, unspecified; I10 Essential (primary) hypertension; E11.9 Type 2 diabetes mellitus without complications; F17.210 Nicotine dependence, cigarettes, uncomplicated; Z86.73 Personal history of transient ischemic attack (TIA), and cerebral infarction without residual deficits
CPT/HCPCS: 70450; 96365; 96366; 96375; J0360; J1100; J1200; J1885; J2270; J2765

== ENCOUNTER 2020-11-02 11:48 | Outpatient (CLI) | payer BC | END 2020-11-02 11:49 | disposition home or self-care (01) | LOC: BICMAMMO 11:48 | PROVIDERS: ATTEND Internal Medicine | DX: Z12.31 Encounter for screening mammogram for malignant neoplasm of breast (principal) | CPT/HCPCS: 77063; 77067 ==

== ENCOUNTER 2021-07-09 17:48 | Inpatient (IN) | payer BC, SELFPAY ==
[2021-07-09 18:50] LABS: #Basophils 0.1 thou/uL (0.0-0.2); #Eosinphils 0.2 thou/uL (0.0-0.7); #Lymphocytes 3.2 thou/uL (1.20-3.40); #Monocytes 0.6 thou/uL (0.11-0.59); #Neutrophils 4.4 thou/uL (1.40-6.50); %Basophils 1.1 % (0.0-1.0); %Eosinophils 2.3 % (0.0-10.0); %Lymphocytes 37.4 % (21.0-51.0); %Monocytes 7.2 % (0.0-10.0); %Neutrophils 52.1 % (42.0-75.0); Hemoglobin 14.3 g/dL (12.0-16.0); Mean Corpuscular HGB CONC 31.5 g/dL (32.0-36.0); Mean Corpuscular Hemoglobin 24.9 pg (27.0-31.0); Mean Corpuscular Volume 78.9 fL (78.0-98.0); Mean Platelet Volume 9.4 fL (7.4-10.4); Platelet Count 272 thou/uL (130-400); RBC Distribution Width 14.1 % (11.5-14.5); Red Blood Cell (RBC) Count 5.73 mill/uL (4.20-5.40); White Blood Cell (WBC) Count 8.4 thou/uL (4.8-10.8)
[2021-07-09 19:06] LABS: ALT (SGPT) 10 U/L (8-55); AST (SGOT) 13 U/L (5-34); Albumin 4.4 g/dL (3.5-5.0); Alkaline Phosphatase 103 U/L (40-110); Anion Gap 15 mmol/L (10-20); BUN (Urea Nitrogen) 13 mg/dL (9.8-20.1); Bilirubin, Total 0.5 mg/dL (0.2-1.2); Calc. Creatinine Clearance 0 mL/min (70-130); Calcium 10.4 mg/dL (7.8-10.44); Carbon Dioxide 24 mmol/L (22-29); Chloride 101 mmol/L (98-107); Globulin 3.8 g/dL (2.4-3.5); Glucose 352 mg/dL (70-105); Protein, Total 8.2 g/dL (6.0-8.3); Sodium 136 mmol/L (136-145)
[2021-07-09] MEDS ORDERED: Aspirin 325 MG TAB ONE (19:12)
[2021-07-09 19:17] LABS: Bilirubin Negative (Negative); Blood, Urine Negative (Negative); Clarity Clear (Clear); Glucose, Urine (Dipstick) Greater than 1000 mg/dL (Negative); Ketone, Urine Negative (Negative); Leukocyte 25 Leu/uL (Negative); Nitrite Negative (Negative); Protein, Urine (Dipstick) 50 mg/dL (Neg-Trace); RBC/HPF 0-3 HPF (0-3); Specific Gravity, Urine 1.034 (1.002-1.036); Squamous Epithelial 0-3 HPF (0-3); Urobilinogen Normal mg/dL (Less than 2)
[2021-07-09 19:18] LABS: Bacteria/HPF 1+ HPF (None Seen)
[2021-07-10] MEDS ORDERED: Acetaminophen/Codeine 30-300mg Tablet ONE (00:38)
[2021-07-10] MEDS ORDERED: Methocarbamol 500 MG TAB PO SCH (00:45)
[2021-07-10] MEDS ORDERED: HumaLOG 300 UNITS/3 ML VIAL SC PRN (00:54)
[2021-07-10] MEDS ORDERED: Dextrose 50% Abboject 50 ML SYRINGE SLOW IVP PRN (00:54)
[2021-07-10] MEDS ORDERED: Dextrose 5% in Water 1,000 ML IV PRN (00:54)
[2021-07-10] MEDS ORDERED: Ondansetron PF 4 MG/2 ML Vial IVP PRN (00:56)
[2021-07-10] MEDS ORDERED: Senokot S 8.6-50 MG TAB PO PRN (00:56)
[2021-07-10] MEDS ORDERED: Ondansetron ODT 4 MG TAB PO PRN (00:56)
[2021-07-10] MEDS ORDERED: hydrALAZINE 20 MG/ML VIAL SLOW IVP PRN ×2 (00:59→12:07)
[2021-07-10] MEDS: Sodium Chloride 0.9% 1,000 ML IV SCH ×2 (01:15→11:58)
[2021-07-10] MEDS ORDERED: Nicotine 14 MG PATCH TD SCH (02:00)
[2021-07-10] MEDS ORDERED: cefTRIAXone\\ROCEPHIN 1 GM VIAL ONE (02:25)
[2021-07-10] MEDS: cefTRIAXone\\ROCEPHIN 1 GM in Sodium Chloride 0.9% 100 ML IVPB SCH (02:31)
[2021-07-10] MEDS ORDERED: Amlodipine 5 MG TAB PO SCH (09:00)
[2021-07-10] MEDS: Aspirin 81 mg Enteric Coated Tablet PO SCH (09:50)
[2021-07-10 11:02] LABS: Hemoglobin 12.9 g/dL (12.0-16.0); Mean Corpuscular HGB CONC 31.4 g/dL (32.0-36.0); Mean Corpuscular Hemoglobin 24.9 pg (27.0-31.0); Mean Corpuscular Volume 79.3 fL (78.0-98.0); Mean Platelet Volume 9.3 fL (7.4-10.4); Platelet Count 220 thou/uL (130-400); RBC Distribution Width 14.1 % (11.5-14.5); Red Blood Cell (RBC) Count 5.19 mill/uL (4.20-5.40); White Blood Cell (WBC) Count 8.7 thou/uL (4.8-10.8)
[2021-07-10 11:04] LABS: Hemoglobin A1c 11.2 % (4.0-6.0)
[2021-07-10 11:19] LABS: Anion Gap 14 mmol/L (10-20); BUN (Urea Nitrogen) 9 mg/dL (9.8-20.1); Calc. Creatinine Clearance 95 mL/min (70-130); Calcium 9.5 mg/dL (7.8-10.44); Carbon Dioxide 20 mmol/L (22-29); Cardiac Risk 5.3 (Less than 4.5); Chloride 103 mmol/L (98-107); Cholesterol 175 mg/dl (< 200 Desired); Glucose 305 mg/dL (70-105); HDL Cholesterol 33 mg/dL (>60 Neg Risk); LDL Cholesterol, Calculated 107 mg/dL; Potassium 4.4 mmol/L (3.5-5.1); Sodium 133 mmol/L (136-145); Triglycerides 177 mg/dL (Less than 150)
[2021-07-10 11:26] LABS: Band 3 % (5-11); Eosinophils 4 % (0-10); Lymphocytes 34 % (21-51); MDiff Complete? YES; Monocytes 6 % (0-10); Neutrophil 53 % (42-75); Platelet Morphology Comment Appears Adequate; Polychromasia SLIGHT = 2-3 cells (100X) (0-2/hpf)
[2021-07-10] MEDS: HumaLOG 300 UNITS/3 ML VIAL SC PRN ×2 (11:55→17:09)
[2021-07-10 11:56] LABS: SARS-CoV-2 PCR by NAA Not Detected (NotDetected)
[2021-07-10] MEDS ORDERED: ALPRAZolam 0.25 MG TAB PO PRN (12:08)
[2021-07-10] MEDS ORDERED: tiZANidine HCl 4 MG TAB PO PRN (12:15)
[2021-07-10] MEDS ORDERED: Lantus 1000 UNITS/10 ML VIAL SC SCH ×2 (12:30→21:00)
[2021-07-10] MEDS ORDERED: Nicotine 14 MG PATCH TD PRN (12:32)
[2021-07-10] MEDS: HYDROcodone/Acetaminophen 10/325 mg Tablet PO PRN ×2 (12:37→18:35)
[2021-07-10 17:20] LABS: INR-International Normal Ratio 0.9; PTT 37.9 sec (22.9-36.1); Prothrombin Time 12.7 sec (12.0-14.7)
[2021-07-10 17:21] LABS: D-Dimer Test 0.84 *mcg/mL (0.27-0.43)
[2021-07-10] MEDS ORDERED: Atorvastatin Calcium 40 MG TAB PO SCH (21:00)
[2021-07-11] MEDS: cefTRIAXone\\ROCEPHIN 1 GM in Sodium Chloride 0.9% 100 ML IVPB SCH (01:39)
[2021-07-11 05:18] LABS: #Basophils 0.1 thou/uL (0.0-0.2); #Eosinphils 0.3 thou/uL (0.0-0.7); #Lymphocytes 3.1 thou/uL (1.20-3.40); #Monocytes 0.6 thou/uL (0.11-0.59); %Eosinophils 3.6 % (0.0-10.0); %Lymphocytes 38.4 % (21.0-51.0); %Monocytes 7.2 % (0.0-10.0); %Neutrophils 49.8 % (42.0-75.0); Hemoglobin 11.6 g/dL (12.0-16.0); Mean Corpuscular HGB CONC 31.2 g/dL (32.0-36.0); Mean Corpuscular Hemoglobin 24.8 pg (27.0-31.0); Mean Corpuscular Volume 79.3 fL (78.0-98.0); Platelet Count 228 thou/uL (130-400); Red Blood Cell (RBC) Count 4.69 mill/uL (4.20-5.40)
[2021-07-11 05:38] LABS: Anion Gap 14 mmol/L (10-20); BUN (Urea Nitrogen) 9 mg/dL (9.8-20.1); Calc. Creatinine Clearance 111 mL/min (70-130); Calcium 9.1 mg/dL (7.8-10.44); Carbon Dioxide 22 mmol/L (22-29); Chloride 104 mmol/L (98-107); Glucose 237 mg/dL (70-105); Potassium 3.8 mmol/L (3.5-5.1); Sodium 136 mmol/L (136-145)
[2021-07-11] MEDS: HumaLOG 300 UNITS/3 ML VIAL SC PRN ×2 (06:10→16:53)
[2021-07-11 06:47] LABS: PTT 37.4 sec (22.9-36.1); Prothrombin Time 12.9 sec (12.0-14.7)
[2021-07-11 08:05] VITALS: TEMP 97.9
[2021-07-11] MEDS: HYDROcodone/Acetaminophen 10/325 mg Tablet PO PRN ×2 (08:32→15:21)
[2021-07-11] MEDS: Aspirin 81 mg Enteric Coated Tablet PO SCH (08:32)
[2021-07-11] MEDS ORDERED: Lantus 1000 UNITS/10 ML VIAL SC SCH ×2 (09:00)
[2021-07-11 10:59] LABS: Thrombin Time 17.7 secs (14.3-20.0)
[2021-07-11 11:00] LABS: PT - Undiluted 12.9 sec (12.0-14.7); PTT - Undiluted 37.4 sec (22.9-36.1); PTT 1:1 Mix 32.9 sec (22.9-36.1)
[2021-07-11 11:33] VITALS: BMI 29.9
[2021-07-11 11:42] LABS: DRVVT Confirm 37.1
[2021-07-11] MEDS ORDERED: Insulin Glargine 15 UNITS in Pre-Filled Syringe 1 EACH SC SCH (12:09)
[2021-07-11 12:47] LABS: Factor VIII Test 256.4 % ACTIVE (56-157)
[2021-07-11 12:48] LABS: Factor IX Test 144.3 % ACTIVE (56-149)
[2021-07-11 12:48] LABS: Factor VIII Test 256.4 % ACTIVE (56-157)
[2021-07-11 13:05] LABS: PT 1:1 37C-90 min. Incubation 12.6 sec (12.0-14.7); PTT 1:1 37C/90 MIN Incubation 33.7 sec (22.9-36.1)
[2021-07-11 14:45] LABS: HEX PHOS LA Tube 1 48.3 SEC; HEX PHOS LA Tube 2 42.3 SEC; Protein C Activity 111 % (78-152)
[2021-07-11 14:46] LABS: HEX PHOS LA Tube 1 48.3 SEC; HEX PHOS LA Tube 2 42.3 SEC
[2021-07-11 16:08] VITALS: BP 130/88
[2021-07-11] MEDS ORDERED: Clopidogrel Bisulfate 75 MG TAB PO SCH (16:45)
== END 2021-07-11 17:50 | disposition home or self-care (01) | DRG 65 ==
LOC: ERS 17:48 → ERHOLD 20:14 → 2NO 07-10 03:57
PROVIDERS: ADMIT Student in an Organized Health Care Education/Training Program; ATTEND Family Medicine
DX: I63.9 Cerebral infarction, unspecified (principal); Z20.822 Contact with and (suspected) exposure to COVID-19; R29.701 NIHSS score 1; G45.8 Other transient cerebral ischemic attacks and related syndromes; N39.0 Urinary tract infection, site not specified; G81.94 Hemiplegia, unspecified affecting left nondominant side; E11.65 Type 2 diabetes mellitus with hyperglycemia; E78.5 Hyperlipidemia, unspecified; F17.210 Nicotine dependence, cigarettes, uncomplicated; F41.9 Anxiety disorder, unspecified; G89.29 Other chronic pain; R47.1 Dysarthria and anarthria; I25.10 Atherosclerotic heart disease of native coronary artery without angina pectoris; F32.A Depression, unspecified; M54.50 Low back pain, unspecified; J20.9 Acute bronchitis, unspecified; I10 Essential (primary) hypertension; E78.00 Pure hypercholesterolemia, unspecified; I08.1 Rheumatic disorders of both mitral and tricuspid valves; Z86.73 Personal history of transient ischemic attack (TIA), and cerebral infarction without residual deficits; Z90.49 Acquired absence of other specified parts of digestive tract; Z90.710 Acquired absence of both cervix and uterus; Z95.5 Presence of coronary angioplasty implant and graft; Z88.0 Allergy status to penicillin; Z88.8 Allergy status to other drugs, medicaments and biological substances; Z79.899 Other long term (current) drug therapy; Z98.51 Tubal ligation status; Z82.49 Family history of ischemic heart disease and other diseases of the circulatory system; Z88.1 Allergy status to other antibiotic agents
CPT/HCPCS: 36415; 36416; 70450; 70549; 70551; 80048; 80053; 80061; 80500; 81003; 81015; 83036; 83090; 83880; 84484; 85025; 85240; 85250; 85300; 85303; 85305; 85307; 85379; 85598; 85610; 85611; 85613; 85670; 85730; 85732; 86146; 86147; 87086; 93005; 93306; 93880; J0696; J1815; J3490; J7050; U0003; U0005

== ENCOUNTER 2021-11-15 14:07 | Inpatient (IN) | payer BC, OTHER, SELFPAY ==
[2021-11-15 15:15] LABS: #Basophils 0.1 thou/uL (0.0-0.2); #Eosinphils 0.2 thou/uL (0.0-0.7); #Lymphocytes 3.7 thou/uL (1.20-3.40); #Monocytes 0.6 thou/uL (0.11-0.59); #Neutrophils 5.1 thou/uL (1.40-6.50); %Basophils 0.9 % (0.0-1.0); %Eosinophils 1.9 % (0.0-10.0); %Lymphocytes 38.4 % (21.0-51.0); %Monocytes 5.7 % (0.0-10.0); %Neutrophils 53.1 % (42.0-75.0); Hemoglobin 11.8 g/dL (12.0-16.0); Mean Corpuscular HGB CONC 30.8 g/dL (32.0-36.0); Mean Corpuscular Hemoglobin 23.3 pg (27.0-31.0); Mean Corpuscular Volume 75.5 fL (78.0-98.0); Mean Platelet Volume 9.4 fL (7.4-10.4); Platelet Count 292 thou/uL (130-400); RBC Distribution Width 15.6 % (11.5-14.5); Red Blood Cell (RBC) Count 5.09 mill/uL (4.20-5.40); White Blood Cell (WBC) Count 9.6 thou/uL (4.8-10.8)
[2021-11-15 15:37] LABS: ALT (SGPT) 8 U/L (8-55); AST (SGOT) 7 U/L (5-34); Albumin 4.1 g/dL (3.4-4.8); Alkaline Phosphatase 89 U/L (40-110); Anion Gap 10 mmol/L (10-20); BUN (Urea Nitrogen) 10 mg/dL (9.8-20.1); Bilirubin, Total 0.4 mg/dL (0.2-1.2); Calc. Creatinine Clearance 0 mL/min (70-130); Calcium 10.3 mg/dL (7.8-10.44); Carbon Dioxide 28 mmol/L (23-31); Chloride 104 mmol/L (98-107); Globulin 3.8 g/dL (2.4-3.5); Glucose 267 mg/dL (80-115); Potassium 3.8 mmol/L (3.5-5.1); Protein, Total 7.9 g/dL (5.8-8.1); Sodium 138 mmol/L (136-145)
[2021-11-15] MEDS ORDERED: hydrALAZINE 20 MG/ML VIAL ONE (16:52)
[2021-11-15] MEDS ORDERED: Aspirin Chewable 81 MG TAB ONE (16:52)
[2021-11-15] MEDS ORDERED: hydrALAZINE 20 MG/ML VIAL SLOW IVP PRN ×2 (18:53→19:14)
[2021-11-15] MEDS ORDERED: Dextrose 50% Abboject 50 ML SYRINGE SLOW IVP PRN (19:12)
[2021-11-15] MEDS ORDERED: Dextrose 5% in Water 1,000 ML IV PRN (19:12)
[2021-11-15 19:24] LABS: Troponin I 0.016 ng/mL (< 0.028)
[2021-11-15] MEDS: HYDROcodone/Acetaminophen 5/325 mg Tablet PO PRN (21:31)
[2021-11-15] MEDS: Atorvastatin Calcium 40 MG TAB PO SCH (21:32)
[2021-11-15 21:37] LABS: Troponin I 0.016 ng/mL (< 0.028)
[2021-11-15] MEDS: Sodium Chloride 0.9% 1,000 ML IV SCH (21:43)
[2021-11-15 22:07] VITALS: BMI 28.7
[2021-11-16 02:14] LABS: Amphetamine Not Detected (NotDetected); Barbiturates Screen Not Detected (NotDetected); Benzodiazepine Screen Not Detected (NotDetected); Cocaine Metabolite Screen Not Detected (NotDetected); Methadone Not Detected (NotDetected); Methamphetamine Not Detected (NotDetected); Opiate Screen Detected (NotDetected); Oxycodone Screen Not Detected (NotDetected); Phencyclidine (PCP) Not Detected (NotDetected); THC/Cannabinoid Screen Not Detected (NotDetected); Tricyclic Screen Not Detected (NotDetected)
[2021-11-16] MEDS ORDERED: Ondansetron PF 4 MG/2 ML Vial IVP PRN (04:18)
[2021-11-16 06:05] LABS: Cardiac Risk 4.8 (Less than 4.5)
[2021-11-16] MEDS: HumaLOG 300 UNITS/3 ML VIAL SC PRN ×4 (06:15→21:56)
[2021-11-16] MEDS: HYDROcodone/Acetaminophen 5/325 mg Tablet PO PRN ×4 (07:17→21:56)
[2021-11-16] MEDS: Aspirin 81 mg Enteric Coated Tablet PO SCH (09:04)
[2021-11-16] MEDS: Clopidogrel Bisulfate 75 MG TAB PO SCH (09:04)
[2021-11-16] MEDS: Enoxaparin Sodium 40 MG/0.4 ML SYRINGE SC SCH (09:05)
[2021-11-16] MEDS: Sodium Chloride 0.9% 1,000 ML IV SCH (09:07)
[2021-11-16] MEDS ORDERED: Magnevist 469MG/ML 20 ML VIAL ONE (11:19)
[2021-11-16] MEDS ORDERED: metFORMIN 500 MG TAB PO SCH (17:00)
[2021-11-16] MEDS: Atorvastatin Calcium 40 MG TAB PO SCH (20:50)
[2021-11-16] MEDS ORDERED: Melatonin 3 MG TAB PO SCH (22:00)
[2021-11-17] MEDS: Sodium Chloride 0.9% 1,000 ML IV SCH ×2 (01:05→12:17)
[2021-11-17] MEDS: HYDROcodone/Acetaminophen 5/325 mg Tablet PO PRN ×4 (02:44→19:45)
[2021-11-17 09:56] LABS: #Basophils 0.1 thou/uL (0.0-0.2); #Eosinphils 0.4 thou/uL (0.0-0.7); #Lymphocytes 2.8 thou/uL (1.20-3.40); #Monocytes 0.5 thou/uL (0.11-0.59); #Neutrophils 4.2 thou/uL (1.40-6.50); %Basophils 1.4 % (0.0-1.0); %Eosinophils 4.9 % (0.0-10.0); %Lymphocytes 34.5 % (21.0-51.0); %Monocytes 6.7 % (0.0-10.0); %Neutrophils 52.6 % (42.0-75.0); Hemoglobin 11.5 g/dL (12.0-16.0); Mean Corpuscular HGB CONC 31.1 g/dL (32.0-36.0); Mean Corpuscular Hemoglobin 23.6 pg (27.0-31.0); Mean Corpuscular Volume 75.8 fL (78.0-98.0); Platelet Count 273 thou/uL (130-400); RBC Distribution Width 16.1 % (11.5-14.5); Red Blood Cell (RBC) Count 4.87 mill/uL (4.20-5.40)
[2021-11-17 10:07] LABS: Hemoglobin A1c 11.1 % (4.0-6.0)
[2021-11-17 10:16] LABS: ALT (SGPT) 7 U/L (8-55); AST (SGOT) 10 U/L (5-34); Albumin 3.7 g/dL (3.4-4.8); Alkaline Phosphatase 81 U/L (40-110); Anion Gap 12 mmol/L (10-20); BUN (Urea Nitrogen) 7 mg/dL (9.8-20.1); Bilirubin, Total 0.8 mg/dL (0.2-1.2); Calc. Creatinine Clearance 110 mL/min (70-130); Calcium 9.1 mg/dL (7.8-10.44); Carbon Dioxide 25 mmol/L (23-31); Chloride 104 mmol/L (98-107); Globulin 3.4 g/dL (2.4-3.5); Glucose 169 mg/dL (80-115); Potassium 3.8 mmol/L (3.5-5.1); Protein, Total 7.1 g/dL (5.8-8.1); Sodium 137 mmol/L (136-145)
[2021-11-17] MEDS ORDERED: Aspirin 81 mg Enteric Coated Tablet PO SCH (11:45)
[2021-11-17] MEDS ORDERED: Clopidogrel Bisulfate 75 MG TAB PO SCH (11:45)
[2021-11-17] MEDS: HumaLOG 300 UNITS/3 ML VIAL SC PRN ×2 (17:34→21:48)
[2021-11-17] MEDS: Atorvastatin Calcium 40 MG TAB PO SCH (19:45)
[2021-11-18] MEDS: HYDROcodone/Acetaminophen 5/325 mg Tablet PO PRN ×4 (06:33→20:16)
[2021-11-18] MEDS: HumaLOG 300 UNITS/3 ML VIAL SC PRN ×2 (06:33→12:04)
[2021-11-18] MEDS: Aspirin 81 mg Enteric Coated Tablet PO SCH (08:40)
[2021-11-18] MEDS: Enoxaparin Sodium 40 MG/0.4 ML SYRINGE SC SCH (08:40)
[2021-11-18] MEDS: Clopidogrel Bisulfate 75 MG TAB PO SCH (08:40)
[2021-11-18] MEDS ORDERED: Amlodipine 5 MG TAB PO SCH (09:00)
[2021-11-18] MEDS ORDERED: Lisinopril 5 MG TAB PO SCH (09:15)
[2021-11-18] MEDS: metFORMIN 500 MG TAB PO SCH (16:07)
[2021-11-18] MEDS: Atorvastatin Calcium 40 MG TAB PO SCH (20:16)
[2021-11-18] MEDS: Amlodipine 5 MG TAB PO SCH (21:21)
[2021-11-19] MEDS: HYDROcodone/Acetaminophen 5/325 mg Tablet PO PRN ×5 (02:06→23:11)
[2021-11-19] MEDS ORDERED: Acetaminophen 500 MG TAB PO PRN (05:25)
[2021-11-19] MEDS: HumaLOG 300 UNITS/3 ML VIAL SC PRN (06:15)
[2021-11-19] MEDS: Amlodipine 5 MG TAB PO SCH (08:11)
[2021-11-19] MEDS: metFORMIN 500 MG TAB PO SCH ×2 (08:11→16:53)
[2021-11-19] MEDS: Clopidogrel Bisulfate 75 MG TAB PO SCH (08:12)
[2021-11-19] MEDS: Aspirin 81 mg Enteric Coated Tablet PO SCH (08:12)
[2021-11-19] MEDS ORDERED: Lisinopril 5 MG TAB PO SCH ×2 (09:00→16:30)
[2021-11-19 11:03] LABS: Syphilis Antibody Nonreactive (Nonreactive); Syphilis Antibody Index 0.07 S/CO (<1.00 Non-Reactive)
[2021-11-19 13:35] LABS: ANA Symphony (Qualitative) Negative (Negative); ANA Symphony (Quantitative) 0.2 Ratio (< 0.7 Negative); CCP IgG Antibody 2.1 EliAU/mL (<7 Negative); Rheumatoid Factor IgA Antibody 5.3 IU/mL (<14 Negative); Rheumatoid Factor IgM Antibody 2.8 IU/mL (<3.5 Negative); dsDNA IgG Antibody 0.7 IU/mL (<10 Negative)
[2021-11-19] MEDS ORDERED: Nicotine 14 MG PATCH TD SCH (17:00)
[2021-11-19] MEDS ORDERED: cloNIDine 0.1 MG TAB PO PRN (20:26)
[2021-11-19] MEDS: Atorvastatin Calcium 40 MG TAB PO SCH (20:52)
[2021-11-19] MEDS: Lisinopril 5 MG TAB PO SCH (20:52)
[2021-11-20] MEDS: HYDROcodone/Acetaminophen 5/325 mg Tablet PO PRN ×2 (07:12→11:07)
[2021-11-20 07:54] VITALS: BP 190/80; TEMP 98.3
[2021-11-20] MEDS: Aspirin 81 mg Enteric Coated Tablet PO SCH (08:38)
[2021-11-20] MEDS: metFORMIN 500 MG TAB PO SCH (08:38)
[2021-11-20] MEDS: Lisinopril 5 MG TAB PO SCH (08:39)
[2021-11-20] MEDS: Clopidogrel Bisulfate 75 MG TAB PO SCH (08:39)
[2021-11-20] MEDS ORDERED: Lisinopril 5 MG TAB PO SCH (09:00)
[2021-11-20] MEDS ORDERED: Amlodipine 5 MG TAB PO SCH (09:00)
[2021-11-20] MEDS ORDERED: Nicotine 14 MG PATCH TD SCH (09:45)
== END 2021-11-20 11:25 | disposition home or self-care (01) | DRG 65 ==
LOC: ERS 14:07 → NEURO 18:16 → OBSVTOIN 11-18 09:58
PROVIDERS: ADMIT Family Medicine; ATTEND Internal Medicine
DX: I63.9 Cerebral infarction, unspecified (principal); I69.354 Hemiplegia and hemiparesis following cerebral infarction affecting left non-dominant side; G45.8 Other transient cerebral ischemic attacks and related syndromes; E78.5 Hyperlipidemia, unspecified; F17.210 Nicotine dependence, cigarettes, uncomplicated; G89.29 Other chronic pain; R29.702 NIHSS score 2; I25.10 Atherosclerotic heart disease of native coronary artery without angina pectoris; I70.8 Atherosclerosis of other arteries; Z20.822 Contact with and (suspected) exposure to COVID-19; M54.9 Dorsalgia, unspecified; Z91.14 Patient's other noncompliance with medication regimen; Z79.01 Long term (current) use of anticoagulants; Z88.8 Allergy status to other drugs, medicaments and biological substances; Z88.0 Allergy status to penicillin; Z79.84 Long term (current) use of oral hypoglycemic drugs; Z90.710 Acquired absence of both cervix and uterus; Z90.49 Acquired absence of other specified parts of digestive tract; Z95.5 Presence of coronary angioplasty implant and graft; Z98.891 History of uterine scar from previous surgery; Z98.890 Other specified postprocedural states; Z71.6 Tobacco abuse counseling; Z82.49 Family history of ischemic heart disease and other diseases of the circulatory system; Z98.51 Tubal ligation status
CPT/HCPCS: 36415; 36416; 70450; 70544; 70549; 70551; 71555; 80053; 80061; 80306; 83036; 83090; 83520; 84484; 85025; 85652; 86038; 86200; 86225; 86780; 93005; 93306; 94760; 96374; 96375; 96376; A9579; C8911; G0378; J0360; J1650; J1815; J2405; J7050; U0003; U0005

== ENCOUNTER 2022-08-31 17:37 | Emergency (ER) | payer OTHER, SELFPAY ==
[2022-08-31] MEDS ORDERED: HYDROcodone/Acetaminophen 10/325 mg Tablet ONE (19:47)
[2022-08-31] MEDS ORDERED: Diazepam 5 MG TAB ONE (19:57)
== END 2022-08-31 20:41 | disposition home or self-care (01) ==
LOC: ERS 17:37
DX: M46.1 Sacroiliitis, not elsewhere classified (principal); M16.11 Unilateral primary osteoarthritis, right hip; I10 Essential (primary) hypertension; E78.5 Hyperlipidemia, unspecified
CPT/HCPCS: 72170

== ENCOUNTER 2022-09-01 22:32 | Inpatient (IN) | payer OTHER, SELFPAY ==
[2022-09-01] MEDS ORDERED: Naloxone HCl 2 mg/2 ml Syringe ONE (23:40)
[2022-09-02 00:42] LABS: #Basophils 0.1 thou/uL (0.0-0.2); #Eosinphils 0.2 thou/uL (0.0-0.7); #Lymphocytes 2.9 thou/uL (1.20-3.40); #Monocytes 0.8 thou/uL (0.11-0.59); #Neutrophils 7.2 thou/uL (1.40-6.50); %Basophils 0.6 % (0.0-1.0); %Eosinophils 1.7 % (0.0-10.0); %Lymphocytes 26.3 % (21.0-51.0); %Monocytes 6.8 % (0.0-10.0); %Neutrophils 64.6 % (42.0-75.0); Hemoglobin 13.2 g/dL (12.0-16.0); Mean Corpuscular HGB CONC 31.1 g/dL (32.0-36.0); Mean Corpuscular Hemoglobin 24.5 pg (27.0-31.0); Mean Corpuscular Volume 78.6 fl (78.0-98.0); Mean Platelet Volume 10.3 fL (7.4-10.4); Platelet Count 266 10x3/uL (130-400); RBC Distribution Width 13.7 % (11.5-14.5); Red Blood Cell (RBC) Count 5.39 mill/uL (4.20-5.40); White Blood Cell (WBC) Count 11.1 10x3/uL (4.8-10.8)
[2022-09-02 00:47] LABS: ALT (SGPT) 10 U/L (8-55); AST (SGOT) 14 U/L (5-34); Albumin 3.9 g/dL (3.4-4.8); Alkaline Phosphatase 83 U/L (40-110); Anion Gap 14 mmol/L (10-20); BUN (Urea Nitrogen) 18 mg/dL (9.8-20.1); Bilirubin, Total 0.4 mg/dL (0.2-1.2); Calc. Creatinine Clearance 0 mL/min (70-130); Calcium 10.1 mg/dL (7.8-10.44); Carbon Dioxide 22 mmol/L (23-31); Chloride 104 mmol/L (98-107); Estimated GFR 61; Globulin 3.9 g/dL (2.4-3.5); Glucose 390 mg/dL (80-115); Protein, Total 7.8 g/dL (5.8-8.1); Sodium 136 mmol/L (136-145)
[2022-09-02 00:53] LABS: Acetaminophen Less than 10.0 mcg/mL (10.0-30.0); Alcohol Less than 10 mg/dL (Less than 10); Salicylate Less than 8.0 mg/dL (15.0-30.0)
[2022-09-02 01:40] LABS: CKMB 2.5 ng/mL (0-6.6)
[2022-09-02] MEDS ORDERED: Ondansetron PF 4 MG/2 ML Vial IVP PRN (02:17)
[2022-09-02 02:32] LABS: Bacteria/HPF None Seen HPF (None Seen); Bilirubin Negative (Negative); Blood, Urine Negative (Negative); Clarity Clear (Clear); Glucose, Urine (Dipstick) Greater than 1000 mg/dL (Negative); Ketone, Urine 20 mg/dL (Negative); Leukocyte Negative Leu/uL (Negative); Nitrite Negative (Negative); Protein, Urine (Dipstick) 70 mg/dL (Neg-Trace); RBC/HPF 0-3 HPF (0-3); Specific Gravity, Urine 1.035 (1.002-1.036); Squamous Epithelial 0-3 HPF (0-3); Urobilinogen Normal mg/dL (Less than 2); WBC/HPF 0-3 HPF (0-3)
[2022-09-02 02:39] LABS: Amphetamine Not Detected (NotDetected); Barbiturates Screen Not Detected (NotDetected); Benzodiazepine Screen Detected (NotDetected); Cocaine Metabolite Screen Not Detected (NotDetected); Methadone Not Detected (NotDetected); Methamphetamine Not Detected (NotDetected); Opiate Screen Detected (NotDetected); Oxycodone Screen Not Detected (NotDetected); Phencyclidine (PCP) Not Detected (NotDetected); THC/Cannabinoid Screen Not Detected (NotDetected); Tricyclic Screen Not Detected (NotDetected)
[2022-09-02] MEDS ORDERED: Aspirin 325 MG TAB ONE (03:10)
[2022-09-02] MEDS ORDERED: Dextrose 50% Abboject 50 ML SYRINGE SLOW IVP PRN (03:12)
[2022-09-02] MEDS ORDERED: Dextrose 5% in Water 1,000 ML IV PRN (03:12)
[2022-09-02] MEDS ORDERED: Lisinopril 5 MG TAB PO SCH (03:30)
[2022-09-02] MEDS ORDERED: HumaLOG 300 UNITS/3 ML VIAL ONE (03:47)
[2022-09-02] MEDS: HumaLOG 300 UNITS/3 ML VIAL SC PRN ×2 (03:49→20:04)
[2022-09-02 04:03] LABS: Hemoglobin A1c 12.7 % (4.0-6.0)
[2022-09-02 04:07] LABS: #Basophils 0.1 thou/uL (0.0-0.2); #Eosinphils 0.1 thou/uL (0.0-0.7); #Monocytes 0.7 thou/uL (0.11-0.59); #Neutrophils 8.6 thou/uL (1.40-6.50); %Basophils 0.5 % (0.0-1.0); %Eosinophils 0.8 % (0.0-10.0); %Lymphocytes 17.4 % (21.0-51.0); %Monocytes 6.2 % (0.0-10.0); %Neutrophils 75.1 % (42.0-75.0); Hemoglobin 13.2 g/dL (12.0-16.0); Mean Corpuscular HGB CONC 32.9 g/dL (32.0-36.0); Mean Corpuscular Hemoglobin 25.8 pg (27.0-31.0); Mean Corpuscular Volume 78.6 fl (78.0-98.0); Mean Platelet Volume 10.4 fL (7.4-10.4); Platelet Count 241 10x3/uL (130-400); RBC Distribution Width 13.6 % (11.5-14.5); Red Blood Cell (RBC) Count 5.11 mill/uL (4.20-5.40); White Blood Cell (WBC) Count 11.4 10x3/uL (4.8-10.8)
[2022-09-02 04:14] LABS: Anion Gap 15 mmol/L (10-20); BUN (Urea Nitrogen) 15 mg/dL (9.8-20.1); Calc. Creatinine Clearance 96 mL/min (70-130); Calcium 10.1 mg/dL (7.8-10.44); Carbon Dioxide 22 mmol/L (23-31); Cardiac Risk 4.4 (Less than 4.5); Chloride 104 mmol/L (98-107); Cholesterol 182 mg/dl (< 200 Desired); Estimated GFR 75; Glucose 331 mg/dL (80-115); HDL Cholesterol 41 mg/dL (>60 Neg Risk); LDL Cholesterol, Calculated 126 mg/dL; Potassium 4.4 mmol/L (3.5-5.1); Sodium 137 mmol/L (136-145); Triglycerides 74 mg/dL (Less than 150)
[2022-09-02 05:01] LABS: Critical Call Chem Troponin I RESULT DECREASING; Troponin I 0.335 ng/mL (< 0.028)
[2022-09-02 08:43] LABS: Critical Call Chem Troponin I R
[2022-09-02] MEDS ORDERED: Aspirin Chewable 81 MG TAB ONE (09:05)
[2022-09-02] MEDS: Aspirin 81 mg Enteric Coated Tablet PO SCH (09:13)
[2022-09-02] MEDS: Lisinopril 5 MG TAB PO SCH ×2 (09:13→22:10)
[2022-09-02] MEDS: Atorvastatin Calcium 40 MG TAB PO SCH (22:10)
[2022-09-03] MEDS: HumaLOG 300 UNITS/3 ML VIAL SC PRN ×4 (01:21→18:29)
[2022-09-03 05:46] LABS: #Eosinphils 0.1 thou/uL (0.0-0.7); #Lymphocytes 2.3 thou/uL (1.20-3.40); #Monocytes 0.7 thou/uL (0.11-0.59); #Neutrophils 7.4 thou/uL (1.40-6.50); %Basophils 0.3 % (0.0-1.0); %Eosinophils 0.6 % (0.0-10.0); %Lymphocytes 21.6 % (21.0-51.0); %Monocytes 6.8 % (0.0-10.0); %Neutrophils 70.8 % (42.0-75.0); Hemoglobin 12.7 g/dL (12.0-16.0); Mean Corpuscular HGB CONC 31.5 g/dL (32.0-36.0); Mean Corpuscular Volume 79.4 fl (78.0-98.0); Platelet Count 276 10x3/uL (130-400); RBC Distribution Width 13.7 % (11.5-14.5); Red Blood Cell (RBC) Count 5.09 mill/uL (4.20-5.40); White Blood Cell (WBC) Count 10.5 10x3/uL (4.8-10.8)
[2022-09-03 06:06] LABS: Anion Gap 15 mmol/L (10-20); BUN (Urea Nitrogen) 12 mg/dL (9.8-20.1); Calc. Creatinine Clearance 119 mL/min (70-130); Calcium 9.8 mg/dL (7.8-10.44); Carbon Dioxide 19 mmol/L (23-31); Chloride 102 mmol/L (98-107); Estimated GFR 88; Glucose 315 mg/dL (80-115); Potassium 4.1 mmol/L (3.5-5.1); Sodium 132 mmol/L (136-145)
[2022-09-03] MEDS: Lisinopril 5 MG TAB PO SCH ×2 (09:24→21:14)
[2022-09-03] MEDS ORDERED: Aspirin Chewable 81 MG TAB PO SCH (09:30)
[2022-09-03] MEDS: Aspirin 81 mg Enteric Coated Tablet PO SCH (10:25)
[2022-09-03] MEDS: Acetaminophen 325 MG TAB PO PRN (21:10)
[2022-09-03] MEDS: Atorvastatin Calcium 40 MG TAB PO SCH (21:12)
[2022-09-03] MEDS ORDERED: Labetalol HCl 100 MG/20 ML VIAL SLOW IVP PRN (21:48)
[2022-09-04] MEDS: hydrALAZINE 20 MG/ML VIAL SLOW IVP PRN (00:08)
[2022-09-04] MEDS: HumaLOG 300 UNITS/3 ML VIAL SC PRN ×4 (00:09→18:08)
[2022-09-04 06:04] LABS: #Basophils 0.1 thou/uL (0.0-0.2); #Eosinphils 0.1 thou/uL (0.0-0.7); #Lymphocytes 2.7 thou/uL (1.20-3.40); #Monocytes 0.9 thou/uL (0.11-0.59); #Neutrophils 7.1 thou/uL (1.40-6.50); %Basophils 0.6 % (0.0-1.0); %Eosinophils 0.8 % (0.0-10.0); %Lymphocytes 24.8 % (21.0-51.0); %Monocytes 8.3 % (0.0-10.0); %Neutrophils 65.5 % (42.0-75.0); Hemoglobin 13.2 g/dL (12.0-16.0); Mean Corpuscular Hemoglobin 25.3 pg (27.0-31.0); Mean Corpuscular Volume 79.1 fl (78.0-98.0); Mean Platelet Volume 9.1 fL (7.4-10.4); Platelet Count 280 10x3/uL (130-400); RBC Distribution Width 13.9 % (11.5-14.5); Red Blood Cell (RBC) Count 5.21 mill/uL (4.20-5.40); White Blood Cell (WBC) Count 10.8 10x3/uL (4.8-10.8)
[2022-09-04 06:22] LABS: Anion Gap 14 mmol/L (10-20); BUN (Urea Nitrogen) 14 mg/dL (9.8-20.1); Calc. Creatinine Clearance 114 mL/min (70-130); Calcium 9.8 mg/dL (7.8-10.44); Carbon Dioxide 20 mmol/L (23-31); Chloride 106 mmol/L (98-107); Estimated GFR 84; Glucose 288 mg/dL (80-115); Potassium 3.9 mmol/L (3.5-5.1); Sodium 136 mmol/L (136-145)
[2022-09-04] MEDS ORDERED: Amlodipine 5 MG TAB PO SCH (09:00)
[2022-09-04] MEDS: Aspirin Chewable 81 MG TAB PO SCH (09:05)
[2022-09-04] MEDS: Lisinopril 5 MG TAB PO SCH ×2 (09:07→20:29)
[2022-09-04] MEDS: Metoprolol Tartrate 25 MG TAB PO SCH (20:29)
[2022-09-04] MEDS: Atorvastatin Calcium 40 MG TAB PO SCH (20:29)
[2022-09-04] MEDS ORDERED: Insulin Glargine 30 UNITS/0.3 ML VIAL SC SCH (21:00)
[2022-09-04] MEDS ORDERED: Lisinopril 5 MG TAB PO SCH (21:00)
[2022-09-05] MEDS: HumaLOG 300 UNITS/3 ML VIAL SC PRN ×4 (00:37→18:53)
[2022-09-05] MEDS: hydrALAZINE 20 MG/ML VIAL SLOW IVP PRN (00:37)
[2022-09-05] MEDS: Clopidogrel Bisulfate 75 MG TAB PO SCH (08:41)
[2022-09-05] MEDS: Lisinopril 5 MG TAB PO SCH ×2 (08:41→21:06)
[2022-09-05] MEDS: Aspirin Chewable 81 MG TAB PO SCH (08:41)
[2022-09-05] MEDS: Metoprolol Tartrate 25 MG TAB PO SCH ×2 (08:42→21:06)
[2022-09-05] MEDS: Amlodipine 10 MG TAB PO SCH (08:42)
[2022-09-05] MEDS ORDERED: Dextrose 50% Abboject 50 ML SYRINGE SLOW IVP PRN (18:43)
[2022-09-05] MEDS ORDERED: Dextrose 5% in Water 1,000 ML IV PRN (18:43)
[2022-09-05] MEDS ORDERED: Insulin Glargine 30 UNITS/0.3 ML VIAL SC SCH (21:00)
[2022-09-05] MEDS: Atorvastatin Calcium 40 MG TAB PO SCH (21:06)
[2022-09-06] MEDS: HumaLOG 300 UNITS/3 ML VIAL SC PRN ×2 (02:26→06:35)
[2022-09-06 06:32] LABS: #Basophils 0.1 thou/uL (0.0-0.2); #Eosinphils 0.2 thou/uL (0.0-0.7); #Lymphocytes 2.7 thou/uL (1.20-3.40); #Monocytes 1.1 thou/uL (0.11-0.59); #Neutrophils 9.4 thou/uL (1.40-6.50); %Basophils 0.4 % (0.0-1.0); %Eosinophils 1.6 % (0.0-10.0); %Lymphocytes 20.1 % (21.0-51.0); %Monocytes 8.2 % (0.0-10.0); %Neutrophils 69.8 % (42.0-75.0); Hemoglobin 13.7 g/dL (12.0-16.0); Mean Corpuscular HGB CONC 31.5 g/dL (32.0-36.0); Mean Corpuscular Hemoglobin 25.2 pg (27.0-31.0); Mean Corpuscular Volume 79.7 fl (78.0-98.0); Mean Platelet Volume 9.6 fL (7.4-10.4); Platelet Count 253 10x3/uL (130-400); RBC Distribution Width 13.9 % (11.5-14.5); Red Blood Cell (RBC) Count 5.43 mill/uL (4.20-5.40); White Blood Cell (WBC) Count 13.5 10x3/uL (4.8-10.8)
[2022-09-06 06:47] LABS: Anion Gap 14 mmol/L (10-20); BUN (Urea Nitrogen) 28 mg/dL (9.8-20.1); Calc. Creatinine Clearance 104 mL/min (70-130); Calcium 10.2 mg/dL (7.8-10.44); Carbon Dioxide 21 mmol/L (23-31); Chloride 109 mmol/L (98-107); Estimated GFR 75; Glucose 336 mg/dL (80-115); Potassium 4.4 mmol/L (3.5-5.1); Sodium 140 mmol/L (136-145)
[2022-09-06] MEDS: HumaLOG 300 UNITS/3 ML VIAL SC SCH ×3 (08:41→18:09)
[2022-09-06] MEDS: Metoprolol Tartrate 25 MG TAB PO SCH ×2 (08:42→22:26)
[2022-09-06] MEDS: Lisinopril 5 MG TAB PO SCH (08:42)
[2022-09-06] MEDS: Amlodipine 10 MG TAB PO SCH (08:42)
[2022-09-06] MEDS: Clopidogrel Bisulfate 75 MG TAB PO SCH (08:42)
[2022-09-06] MEDS: Aspirin Chewable 81 MG TAB PO SCH (08:42)
[2022-09-06] MEDS ORDERED: Lisinopril 10 MG TAB PO SCH (12:45)
[2022-09-06] MEDS ORDERED: Insulin Glargine 30 UNITS/0.3 ML VIAL SC SCH (21:00)
[2022-09-06] MEDS: Lisinopril 20 MG TAB PO SCH (22:25)
[2022-09-06] MEDS: Atorvastatin Calcium 40 MG TAB PO SCH (22:26)
[2022-09-07] MEDS: HumaLOG 300 UNITS/3 ML VIAL SC PRN (01:06)
[2022-09-07] MEDS ORDERED: Acetaminophen 650 MG Suppository PR PRN (01:48)
[2022-09-07 02:32] LABS: #Basophils 0.1 thou/uL (0.0-0.2); #Eosinphils 0.2 thou/uL (0.0-0.7); #Lymphocytes 2.9 thou/uL (1.20-3.40); #Monocytes 0.9 thou/uL (0.11-0.59); #Neutrophils 8.8 thou/uL (1.40-6.50); %Basophils 0.7 % (0.0-1.0); %Eosinophils 1.6 % (0.0-10.0); %Lymphocytes 22.4 % (21.0-51.0); %Monocytes 7.1 % (0.0-10.0); %Neutrophils 68.2 % (42.0-75.0); Mean Corpuscular Hemoglobin 26.5 pg (27.0-31.0); Mean Corpuscular Volume 80.3 fl (78.0-98.0); Mean Platelet Volume 9.6 fL (7.4-10.4); Platelet Count 269 10x3/uL (130-400); Red Blood Cell (RBC) Count 5.27 mill/uL (4.20-5.40); White Blood Cell (WBC) Count 12.9 10x3/uL (4.8-10.8)
[2022-09-07 02:59] LABS: Anion Gap 13 mmol/L (10-20); BUN (Urea Nitrogen) 31 mg/dL (9.8-20.1); Calc. Creatinine Clearance 88 mL/min (70-130); Calcium 10.1 mg/dL (7.8-10.44); Carbon Dioxide 21 mmol/L (23-31); Chloride 109 mmol/L (98-107); Estimated GFR 61; Glucose 339 mg/dL (80-115); Potassium 4.1 mmol/L (3.5-5.1); Sodium 139 mmol/L (136-145)
[2022-09-07 03:50] LABS: Bilirubin Negative (Negative); Blood, Urine Negative (Negative); CAUTI Indications for Culture Fever or rigors; Clarity Clear (Clear); Glucose, Urine (Dipstick) Greater than 1000 mg/dL (Negative); Ketone, Urine Negative (Negative); Leukocyte Negative Leu/uL (Negative); Nitrite Negative (Negative); Protein, Urine (Dipstick) 30 mg/dL (Neg-Trace); Specific Gravity, Urine 1.035 (1.002-1.036); Urobilinogen Normal mg/dL (Less than 2); WBC/HPF None Seen HPF (0-3); pH, Urine 5.5 (5.0-9.0)
[2022-09-07 03:59] LABS: Bacteria/HPF 3+ HPF (None Seen); Urine Culture Reflex No No; Yeast-Budding 1+ HPF (None Seen)
[2022-09-07] MEDS: Vancomycin 1.5 GRAM/300 ML BAG 1.5 GM in Premix Bag 1 BAG IVPB SCH ×2 (04:16→15:58)
[2022-09-07] MEDS: Lisinopril 20 MG TAB PO SCH ×2 (09:53→20:51)
[2022-09-07] MEDS: Metoprolol Tartrate 25 MG TAB PO SCH ×2 (09:53→20:51)
[2022-09-07] MEDS: Aspirin Chewable 81 MG TAB PO SCH (09:53)
[2022-09-07] MEDS: Clopidogrel Bisulfate 75 MG TAB PO SCH (09:53)
[2022-09-07] MEDS: Amlodipine 10 MG TAB PO SCH (09:53)
[2022-09-07] MEDS: HumaLOG 300 UNITS/3 ML VIAL SC SCH ×3 (09:53→18:01)
[2022-09-07] MEDS: Acetaminophen 325 MG TAB PO PRN (13:30)
[2022-09-07] MEDS: Atorvastatin Calcium 40 MG TAB PO SCH (20:51)
[2022-09-07] MEDS ORDERED: Insulin Glargine 30 UNITS/0.3 ML VIAL SC SCH (21:00)
[2022-09-08] MEDS: Lisinopril 20 MG TAB PO SCH ×3 (00:33→20:57)
[2022-09-08] MEDS: Metoprolol Tartrate 25 MG TAB PO SCH ×3 (00:34→20:58)
[2022-09-08] MEDS: Vancomycin 1.5 GRAM/300 ML BAG 1.5 GM in Premix Bag 1 BAG IVPB SCH ×4 (03:19→22:36)
[2022-09-08] MEDS: HumaLOG 300 UNITS/3 ML VIAL SC PRN ×2 (03:20→06:24)
[2022-09-08 05:18] LABS: #Basophils 0.1 thou/uL (0.0-0.2); #Eosinphils 0.3 thou/uL (0.0-0.7); #Lymphocytes 3.4 thou/uL (1.20-3.40); #Monocytes 1.1 thou/uL (0.11-0.59); %Basophils 0.7 % (0.0-1.0); %Lymphocytes 26.6 % (21.0-51.0); %Monocytes 8.5 % (0.0-10.0); %Neutrophils 62.2 % (42.0-75.0); Hemoglobin 14.1 g/dL (12.0-16.0); Mean Corpuscular HGB CONC 32.1 g/dL (32.0-36.0); Mean Corpuscular Hemoglobin 25.8 pg (27.0-31.0); Mean Corpuscular Volume 80.4 fl (78.0-98.0); Mean Platelet Volume 9.2 fL (7.4-10.4); Platelet Count 226 10x3/uL (130-400); RBC Distribution Width 13.8 % (11.5-14.5); Red Blood Cell (RBC) Count 5.45 mill/uL (4.20-5.40); White Blood Cell (WBC) Count 12.9 10x3/uL (4.8-10.8)
[2022-09-08 05:36] LABS: Anion Gap 12 mmol/L (10-20); BUN (Urea Nitrogen) 25 mg/dL (9.8-20.1); Calc. Creatinine Clearance 105 mL/min (70-130); Calcium 10.1 mg/dL (7.8-10.44); Carbon Dioxide 23 mmol/L (23-31); Chloride 107 mmol/L (98-107); Estimated GFR 76; Glucose 251 mg/dL (80-115); Potassium 4.2 mmol/L (3.5-5.1); Sodium 138 mmol/L (136-145)
[2022-09-08] MEDS: HumaLOG 300 UNITS/3 ML VIAL SC SCH ×3 (09:23→16:53)
[2022-09-08] MEDS: Amlodipine 10 MG TAB PO SCH (09:24)
[2022-09-08] MEDS: Clopidogrel Bisulfate 75 MG TAB PO SCH (09:25)
[2022-09-08] MEDS: Aspirin Chewable 81 MG TAB PO SCH (09:25)
[2022-09-08] MEDS: Insulin Glargine 30 UNITS/0.3 ML VIAL SC SCH (20:57)
[2022-09-08] MEDS: Atorvastatin Calcium 40 MG TAB PO SCH (20:57)
[2022-09-08 21:51] LABS: Vancomycin, Trough 13.5 ug/mL
[2022-09-09] MEDS: HumaLOG 300 UNITS/3 ML VIAL SC PRN ×2 (06:37→18:29)
[2022-09-09] MEDS: HumaLOG 300 UNITS/3 ML VIAL SC SCH ×3 (09:07→18:28)
[2022-09-09] MEDS: Metoprolol Tartrate 25 MG TAB PO SCH ×2 (09:08→18:31)
[2022-09-09] MEDS: Clopidogrel Bisulfate 75 MG TAB PO SCH (09:08)
[2022-09-09] MEDS: Aspirin Chewable 81 MG TAB PO SCH (09:08)
[2022-09-09] MEDS: Lisinopril 20 MG TAB PO SCH ×2 (09:09→18:31)
[2022-09-09] MEDS: Amlodipine 10 MG TAB PO SCH (09:10)
[2022-09-09] MEDS: Vancomycin 1.5 GRAM/300 ML BAG 1.5 GM in Premix Bag 1 BAG IVPB SCH ×2 (09:14→22:08)
[2022-09-09] MEDS: Atorvastatin Calcium 40 MG TAB PO SCH (22:08)
[2022-09-09] MEDS: Insulin Glargine 30 UNITS/0.3 ML VIAL SC SCH (22:09)
[2022-09-10] MEDS: HumaLOG 300 UNITS/3 ML VIAL SC SCH ×3 (08:46→17:35)
[2022-09-10] MEDS: Aspirin Chewable 81 MG TAB PO SCH (10:36)
[2022-09-10] MEDS: Clopidogrel Bisulfate 75 MG TAB PO SCH (10:36)
[2022-09-10] MEDS: Metoprolol Tartrate 25 MG TAB PO SCH ×2 (10:37→22:16)
[2022-09-10] MEDS: Amlodipine 10 MG TAB PO SCH (10:37)
[2022-09-10] MEDS: HumaLOG 300 UNITS/3 ML VIAL SC PRN (13:02)
[2022-09-10] MEDS: Sodium Chloride 0.45% 1,000 ML IV SCH (18:01)
[2022-09-10] MEDS: Insulin Glargine 30 UNITS/0.3 ML VIAL SC SCH (22:14)
[2022-09-10] MEDS: Atorvastatin Calcium 40 MG TAB PO SCH (22:15)
[2022-09-10] MEDS: Lisinopril 20 MG TAB PO SCH (22:15)
[2022-09-11 05:15] LABS: #Basophils 0.1 thou/uL (0.0-0.2); #Eosinphils 0.4 thou/uL (0.0-0.7); #Lymphocytes 3.5 thou/uL (1.20-3.40); #Neutrophils 7.4 thou/uL (1.40-6.50); %Basophils 0.5 % (0.0-1.0); %Eosinophils 3.1 % (0.0-10.0); %Lymphocytes 28.1 % (21.0-51.0); %Monocytes 8.4 % (0.0-10.0); %Neutrophils 59.9 % (42.0-75.0); Hemoglobin 13.7 g/dL (12.0-16.0); Mean Corpuscular HGB CONC 30.8 g/dL (32.0-36.0); Mean Corpuscular Hemoglobin 25.1 pg (27.0-31.0); Mean Corpuscular Volume 81.4 fl (78.0-98.0); Mean Platelet Volume 9.5 fL (7.4-10.4); Platelet Count 214 10x3/uL (130-400); RBC Distribution Width 13.7 % (11.5-14.5); Red Blood Cell (RBC) Count 5.47 mill/uL (4.20-5.40); White Blood Cell (WBC) Count 12.4 10x3/uL (4.8-10.8)
[2022-09-11] MEDS: Sodium Chloride 0.45% 1,000 ML IV SCH ×2 (05:24→21:41)
[2022-09-11 05:38] LABS: Anion Gap 13 mmol/L (10-20); BUN (Urea Nitrogen) 15 mg/dL (9.8-20.1); Calc. Creatinine Clearance 125 mL/min (70-130); Calcium 9.7 mg/dL (7.8-10.44); Carbon Dioxide 19 mmol/L (23-31); Chloride 107 mmol/L (98-107); Estimated GFR 94; Glucose 111 mg/dL (80-115); Potassium 4.3 mmol/L (3.5-5.1); Sodium 135 mmol/L (136-145)
[2022-09-11] MEDS: HumaLOG 300 UNITS/3 ML VIAL SC SCH ×3 (07:41→17:58)
[2022-09-11] MEDS ORDERED: Clindamycin/D5W 900 mg/50 ml Premix Bag ONE (11:31)
[2022-09-11] MEDS ORDERED: Levofloxacin 500 mg/D5W 100 ml Premix Bag ONE (11:31)
[2022-09-11] MEDS ORDERED: Phenylephrine 10 MG/ML VIAL ONE (11:33)
[2022-09-11] MEDS ORDERED: Lidocaine 1% PF 5 ML VIAL ONE (11:33)
[2022-09-11] MEDS ORDERED: PROPOFOL 200 MG/20 ML VIAL ONE (11:33)
[2022-09-11] MEDS: Clopidogrel Bisulfate 75 MG TAB PO SCH (14:14)
[2022-09-11] MEDS: Aspirin Chewable 81 MG TAB PO SCH (14:14)
[2022-09-11] MEDS: Metoprolol Tartrate 25 MG TAB PO SCH ×2 (14:16→21:42)
[2022-09-11] MEDS: Acetaminophen 325 MG TAB PO PRN (14:24)
[2022-09-11] MEDS: Atorvastatin Calcium 40 MG TAB PO SCH (21:42)
[2022-09-11] MEDS: Lisinopril 20 MG TAB PO SCH (21:42)
[2022-09-11] MEDS: Insulin Glargine 30 UNITS/0.3 ML VIAL SC SCH (21:42)
[2022-09-12 09:15] LABS: #Eosinphils 0.3 thou/uL (0.0-0.7); #Lymphocytes 2.3 thou/uL (1.20-3.40); #Monocytes 0.9 thou/uL (0.11-0.59); #Neutrophils 7.5 thou/uL (1.40-6.50); %Basophils 0.4 % (0.0-1.0); %Eosinophils 2.8 % (0.0-10.0); %Lymphocytes 20.8 % (21.0-51.0); %Monocytes 8.1 % (0.0-10.0); %Neutrophils 67.9 % (42.0-75.0); Hemoglobin 12.7 g/dL (12.0-16.0); Mean Corpuscular HGB CONC 31.4 g/dL (32.0-36.0); Mean Corpuscular Hemoglobin 24.8 pg (27.0-31.0); Mean Corpuscular Volume 79.2 fl (78.0-98.0); Mean Platelet Volume 9.6 fL (7.4-10.4); Platelet Count 234 10x3/uL (130-400); RBC Distribution Width 13.6 % (11.5-14.5); White Blood Cell (WBC) Count 11.1 10x3/uL (4.8-10.8)
[2022-09-12] MEDS: Clopidogrel Bisulfate 75 MG TAB PO SCH (09:37)
[2022-09-12] MEDS: Aspirin Chewable 81 MG TAB PO SCH (09:37)
[2022-09-12] MEDS: Metoprolol Tartrate 25 MG TAB PO SCH ×2 (09:37→22:17)
[2022-09-12 09:39] LABS: ALT (SGPT) 8 U/L (8-55); AST (SGOT) 15 U/L (5-34); Albumin 3.4 g/dL (3.4-4.8); Alkaline Phosphatase 74 U/L (40-110); Anion Gap 12 mmol/L (10-20); BUN (Urea Nitrogen) 15 mg/dL (9.8-20.1); Bilirubin, Total 0.7 mg/dL (0.2-1.2); Calc. Creatinine Clearance 130 mL/min (70-130); Calcium 9.4 mg/dL (7.8-10.44); Carbon Dioxide 21 mmol/L (23-31); Chloride 107 mmol/L (98-107); Estimated GFR 98; Globulin 3.3 g/dL (2.4-3.5); Glucose 131 mg/dL (80-115); Potassium 3.6 mmol/L (3.5-5.1); Protein, Total 6.7 g/dL (5.8-8.1); Sodium 136 mmol/L (136-145)
[2022-09-12] MEDS: HumaLOG 300 UNITS/3 ML VIAL SC SCH ×2 (10:44→15:23)
[2022-09-12] MEDS: Acetaminophen 325 MG TAB PO PRN (11:39)
[2022-09-12] MEDS: Sodium Chloride 0.45% 1,000 ML IV SCH (11:47)
[2022-09-12] MEDS: Heparin 5,000 UNITS/ML VIAL SC SCH ×2 (15:38→22:18)
[2022-09-12] MEDS: Lisinopril 20 MG TAB PO SCH (22:17)
[2022-09-12] MEDS: Atorvastatin Calcium 40 MG TAB PO SCH (22:17)
[2022-09-12] MEDS: Insulin Glargine 30 UNITS/0.3 ML VIAL SC SCH (22:24)
[2022-09-13] MEDS: HumaLOG 300 UNITS/3 ML VIAL SC PRN ×4 (05:38→23:46)
[2022-09-13 05:54] LABS: #Basophils 0.1 thou/uL (0.0-0.2); #Eosinphils 0.3 thou/uL (0.0-0.7); #Lymphocytes 2.4 thou/uL (1.20-3.40); #Monocytes 0.9 thou/uL (0.11-0.59); #Neutrophils 6.2 thou/uL (1.40-6.50); %Basophils 0.5 % (0.0-1.0); %Lymphocytes 24.1 % (21.0-51.0); %Neutrophils 63.4 % (42.0-75.0); Hemoglobin 12.1 g/dL (12.0-16.0); Mean Corpuscular Hemoglobin 25.5 pg (27.0-31.0); Mean Corpuscular Volume 79.6 fl (78.0-98.0); Mean Platelet Volume 9.5 fL (7.4-10.4); Platelet Count 229 10x3/uL (130-400); RBC Distribution Width 13.6 % (11.5-14.5); Red Blood Cell (RBC) Count 4.74 mill/uL (4.20-5.40); White Blood Cell (WBC) Count 9.9 10x3/uL (4.8-10.8)
[2022-09-13 06:16] LABS: Anion Gap 12 mmol/L (10-20); BUN (Urea Nitrogen) 13 mg/dL (9.8-20.1); Calc. Creatinine Clearance 139 mL/min (70-130); Calcium 9.2 mg/dL (7.8-10.44); Carbon Dioxide 21 mmol/L (23-31); Chloride 107 mmol/L (98-107); Estimated GFR 99; Glucose 183 mg/dL (80-115); Potassium 3.7 mmol/L (3.5-5.1); Sodium 136 mmol/L (136-145)
[2022-09-13] MEDS: Heparin 5,000 UNITS/ML VIAL SC SCH ×3 (10:50→21:30)
[2022-09-13] MEDS: Acetaminophen 325 MG TAB PO PRN ×2 (10:51→21:29)
[2022-09-13] MEDS: Famotidine 20 MG TAB PO SCH (10:52)
[2022-09-13] MEDS: Aspirin Chewable 81 MG TAB PO SCH (10:52)
[2022-09-13] MEDS: Clopidogrel Bisulfate 75 MG TAB PO SCH (10:53)
[2022-09-13] MEDS: Metoprolol Tartrate 25 MG TAB PO SCH ×2 (10:53→21:30)
[2022-09-13] MEDS ORDERED: Insulin Glargine 30 UNITS/0.3 ML VIAL SC SCH (21:00)
[2022-09-13] MEDS: Lisinopril 20 MG TAB PO SCH (21:30)
[2022-09-13] MEDS: Atorvastatin Calcium 40 MG TAB PO SCH (21:30)
[2022-09-14] MEDS: HumaLOG 300 UNITS/3 ML VIAL SC PRN ×3 (05:58→19:05)
[2022-09-14] MEDS: Heparin 5,000 UNITS/ML VIAL SC SCH ×3 (09:39→22:07)
[2022-09-14] MEDS: Lisinopril 20 MG TAB PO SCH (09:43)
[2022-09-14] MEDS: Famotidine 20 MG TAB PO SCH (09:43)
[2022-09-14] MEDS: Aspirin Chewable 81 MG TAB PO SCH (09:43)
[2022-09-14] MEDS: Clopidogrel Bisulfate 75 MG TAB PO SCH (09:43)
[2022-09-14] MEDS: Metoprolol Tartrate 25 MG TAB PO SCH ×2 (09:43→22:07)
[2022-09-14 12:23] LABS: Bacteria/HPF None Seen HPF (None Seen); Bilirubin Negative (Negative); Blood, Urine Negative (Negative); CAUTI Indications for Culture Fever or rigors; Clarity Clear (Clear); Glucose, Urine (Dipstick) Greater than 1000 mg/dL (Negative); Ketone, Urine Negative (Negative); Leukocyte Negative Leu/uL (Negative); Nitrite Negative (Negative); Protein, Urine (Dipstick) 20 mg/dL (Neg-Trace); RBC/HPF 0-3 HPF (0-3); Specific Gravity, Urine 1.022 (1.002-1.036); Squamous Epithelial 0-3 HPF (0-3); Urobilinogen 3 mg/dL (Less than 2); Yeast-Budding 2+ HPF (None Seen)
[2022-09-14 12:27] LABS: Urine Culture Reflex Yes Yes
[2022-09-14] MEDS ORDERED: Insulin Glargine 30 UNITS/0.3 ML VIAL SC SCH (21:00)
[2022-09-14] MEDS: Atorvastatin Calcium 40 MG TAB PO SCH (22:07)
[2022-09-15] MEDS: HumaLOG 300 UNITS/3 ML VIAL SC PRN ×4 (00:07→18:41)
[2022-09-15 06:23] LABS: #Basophils 0.1 thou/uL (0.0-0.2); #Eosinphils 0.3 thou/uL (0.0-0.7); #Lymphocytes 2.9 thou/uL (1.20-3.40); #Monocytes 1.1 thou/uL (0.11-0.59); #Neutrophils 8.1 thou/uL (1.40-6.50); %Basophils 0.7 % (0.0-1.0); %Eosinophils 2.8 % (0.0-10.0); %Lymphocytes 23.1 % (21.0-51.0); %Monocytes 9.1 % (0.0-10.0); %Neutrophils 64.3 % (42.0-75.0); Mean Corpuscular HGB CONC 31.5 g/dL (32.0-36.0); Mean Corpuscular Hemoglobin 25.2 pg (27.0-31.0); Mean Platelet Volume 9.4 fL (7.4-10.4); Platelet Count 293 10x3/uL (130-400); RBC Distribution Width 13.7 % (11.5-14.5); Red Blood Cell (RBC) Count 5.16 mill/uL (4.20-5.40); White Blood Cell (WBC) Count 12.6 10x3/uL (4.8-10.8)
[2022-09-15 06:45] LABS: Anion Gap 14 mmol/L (10-20); BUN (Urea Nitrogen) 13 mg/dL (9.8-20.1); Calc. Creatinine Clearance 125 mL/min (70-130); Carbon Dioxide 24 mmol/L (23-31); Chloride 102 mmol/L (98-107); Estimated GFR 92; Glucose 229 mg/dL (80-115); Potassium 4.5 mmol/L (3.5-5.1); Sodium 135 mmol/L (136-145)
[2022-09-15] MEDS: Clopidogrel Bisulfate 75 MG TAB PO SCH (08:58)
[2022-09-15] MEDS: Heparin 5,000 UNITS/ML VIAL SC SCH ×3 (08:58→21:04)
[2022-09-15] MEDS: Lisinopril 20 MG TAB PER TUBE SCH (08:59)
[2022-09-15] MEDS: Metoprolol Tartrate 25 MG TAB PO SCH ×2 (08:59→21:03)
[2022-09-15] MEDS: Famotidine 20 MG TAB PO SCH ×2 (09:00→21:03)
[2022-09-15] MEDS: Aspirin Chewable 81 MG TAB PO SCH (09:00)
[2022-09-15] MEDS ORDERED: Dextrose 5% in Water 1,000 ML IV PRN (14:29)
[2022-09-15] MEDS ORDERED: Dextrose 50% Abboject 50 ML SYRINGE SLOW IVP PRN (14:29)
[2022-09-15] MEDS ORDERED: Insulin Glargine 30 UNITS/0.3 ML VIAL SC SCH (14:29)
[2022-09-15 15:56] LABS: ALT (SGPT) 15 U/L (8-55); AST (SGOT) 15 U/L (5-34); Albumin 3.5 g/dL (3.4-4.8); Alkaline Phosphatase 75 U/L (40-110); Bilirubin, Direct 0.2 mg/dL (0.1-0.3); Bilirubin, Total 0.2 mg/dL (0.2-1.2)
[2022-09-15] MEDS: Atorvastatin Calcium 40 MG TAB PO SCH (21:03)
[2022-09-16] MEDS: HumaLOG 300 UNITS/3 ML VIAL SC PRN ×4 (00:42→18:14)
[2022-09-16 05:35] LABS: Hemoglobin 12.7 g/dL (12.0-16.0); Mean Corpuscular HGB CONC 30.2 g/dL (32.0-36.0); Mean Corpuscular Hemoglobin 24.1 pg (27.0-31.0); Mean Corpuscular Volume 79.8 fl (78.0-98.0); Mean Platelet Volume 9.3 fL (7.4-10.4); Platelet Count 302 10x3/uL (130-400); RBC Distribution Width 13.8 % (11.5-14.5); Red Blood Cell (RBC) Count 5.29 mill/uL (4.20-5.40); White Blood Cell (WBC) Count 11.9 10x3/uL (4.8-10.8)
[2022-09-16 05:49] LABS: ALT (SGPT) 13 U/L (8-55); AST (SGOT) 18 U/L (5-34); Albumin 3.7 g/dL (3.4-4.8); Alkaline Phosphatase 72 U/L (40-110); Anion Gap 14 mmol/L (10-20); BUN (Urea Nitrogen) 20 mg/dL (9.8-20.1); Bilirubin, Total 0.2 mg/dL (0.2-1.2); Calc. Creatinine Clearance 124 mL/min (70-130); Calcium 9.9 mg/dL (7.8-10.44); Carbon Dioxide 24 mmol/L (23-31); Chloride 101 mmol/L (98-107); Estimated GFR 88; Globulin 3.6 g/dL (2.4-3.5); Glucose 272 mg/dL (80-115); Potassium 4.7 mmol/L (3.5-5.1); Protein, Total 7.3 g/dL (5.8-8.1); Sodium 134 mmol/L (136-145)
[2022-09-16 06:12] LABS: Eosinophils 2 % (0-10); Large Platelets SLIGHT; Lymphocytes 26 % (21-51); MDiff Complete? YES; Monocytes 8 % (0-10); Neutrophil 62 % (42-75); Platelet Morphology Comment Appears Adequate; RBC Morphology Normal
[2022-09-16] MEDS: Lisinopril 20 MG TAB PER TUBE SCH (09:50)
[2022-09-16] MEDS: Metoprolol Tartrate 25 MG TAB PO SCH ×2 (09:50→21:04)
[2022-09-16] MEDS: Clopidogrel Bisulfate 75 MG TAB PO SCH (09:50)
[2022-09-16] MEDS: Aspirin Chewable 81 MG TAB PO SCH (09:50)
[2022-09-16] MEDS: Heparin 5,000 UNITS/ML VIAL SC SCH ×3 (09:51→21:05)
[2022-09-16] MEDS: Famotidine 20 MG TAB PO SCH ×2 (09:51→21:04)
[2022-09-16] MEDS ORDERED: Insulin Glargine 30 UNITS/0.3 ML VIAL SC SCH (21:00)
[2022-09-16] MEDS: Atorvastatin Calcium 40 MG TAB PO SCH (21:04)
[2022-09-17] MEDS: HumaLOG 300 UNITS/3 ML VIAL SC PRN ×4 (06:06→23:54)
[2022-09-17] MEDS: Clopidogrel Bisulfate 75 MG TAB PO SCH (09:16)
[2022-09-17] MEDS: Aspirin Chewable 81 MG TAB PO SCH (09:16)
[2022-09-17] MEDS: Lisinopril 20 MG TAB PER TUBE SCH (09:16)
[2022-09-17] MEDS: Famotidine 20 MG TAB PO SCH ×2 (09:16→20:45)
[2022-09-17] MEDS: Heparin 5,000 UNITS/ML VIAL SC SCH ×3 (09:16→20:45)
[2022-09-17] MEDS: Metoprolol Tartrate 25 MG TAB PO SCH ×2 (09:16→23:51)
[2022-09-17] MEDS: Atorvastatin Calcium 40 MG TAB PO SCH (20:45)
[2022-09-17] MEDS ORDERED: Insulin Glargine 30 UNITS/0.3 ML VIAL SC SCH (21:00)
[2022-09-18] MEDS: HumaLOG 300 UNITS/3 ML VIAL SC PRN ×2 (06:07→18:12)
[2022-09-18] MEDS: Famotidine 20 MG TAB PO SCH ×2 (09:30→21:15)
[2022-09-18] MEDS: Lisinopril 20 MG TAB PER TUBE SCH (09:30)
[2022-09-18] MEDS: Clopidogrel Bisulfate 75 MG TAB PO SCH (09:30)
[2022-09-18] MEDS: Aspirin Chewable 81 MG TAB PO SCH (09:30)
[2022-09-18] MEDS: Metoprolol Tartrate 25 MG TAB PO SCH ×2 (09:31→21:15)
[2022-09-18 11:42] VITALS: BMI 30.4
[2022-09-18 12:28] LABS: #Basophils 0.1 thou/uL (0.0-0.2); #Eosinphils 0.4 thou/uL (0.0-0.7); #Lymphocytes 3.3 thou/uL (1.20-3.40); #Monocytes 1.2 thou/uL (0.11-0.59); #Neutrophils 9.1 thou/uL (1.40-6.50); %Basophils 0.8 % (0.0-1.0); %Lymphocytes 23.2 % (21.0-51.0); %Monocytes 8.4 % (0.0-10.0); %Neutrophils 64.5 % (42.0-75.0); Hemoglobin 12.6 g/dL (12.0-16.0); Mean Corpuscular HGB CONC 32.5 g/dL (32.0-36.0); Mean Corpuscular Volume 79.9 fl (78.0-98.0); Mean Platelet Volume 9.4 fL (7.4-10.4); Platelet Count 274 10x3/uL (130-400); RBC Distribution Width 13.9 % (11.5-14.5); Red Blood Cell (RBC) Count 4.87 mill/uL (4.20-5.40); White Blood Cell (WBC) Count 14.1 10x3/uL (4.8-10.8)
[2022-09-18 14:20] LABS: Bacteria/HPF 3+ HPF (None Seen); Bilirubin Negative (Negative); Blood, Urine Negative (Negative); Clarity Turbid (Clear); Glucose, Urine (Dipstick) 500 mg/dL (Negative); Ketone, Urine Negative (Negative); Leukocyte 500 Leu/uL (Negative); Nitrite Negative (Negative); Protein, Urine (Dipstick) 30 mg/dL (Neg-Trace); RBC/HPF 0-3 HPF (0-3); Renal Epithelial 0-3 HPF (None Seen); Specific Gravity, Urine 1.019 (1.002-1.036); Urobilinogen Normal mg/dL (Less than 2); WBC/HPF Greater than 50 HPF (0-3); Yeast-Budding 2+ HPF (None Seen)
[2022-09-18] MEDS ORDERED: Sodium Chloride 0.9% 1,000 ML IV SCH ×2 (15:30)
[2022-09-18] MEDS ORDERED: Ciprofloxacin 500 MG TAB PER TUBE SCH (15:30)
[2022-09-18] MEDS ORDERED: Insulin Glargine 30 UNITS/0.3 ML VIAL SC SCH (21:00)
[2022-09-18] MEDS: Atorvastatin Calcium 40 MG TAB PO SCH (21:15)
[2022-09-19] MEDS: HumaLOG 300 UNITS/3 ML VIAL SC PRN ×3 (05:22→18:29)
[2022-09-19] MEDS: Acetaminophen 325 MG TAB PO PRN (05:22)
[2022-09-19 05:35] LABS: #Basophils 0.1 thou/uL (0.0-0.2); #Eosinphils 0.3 thou/uL (0.0-0.7); #Lymphocytes 2.6 thou/uL (1.20-3.40); #Neutrophils 7.8 thou/uL (1.40-6.50); %Basophils 0.8 % (0.0-1.0); %Eosinophils 2.5 % (0.0-10.0); %Lymphocytes 21.8 % (21.0-51.0); %Monocytes 8.6 % (0.0-10.0); %Neutrophils 66.4 % (42.0-75.0); Hemoglobin 12.3 g/dL (12.0-16.0); Mean Corpuscular HGB CONC 31.5 g/dL (32.0-36.0); Mean Corpuscular Hemoglobin 25.3 pg (27.0-31.0); Mean Corpuscular Volume 80.2 fl (78.0-98.0); Mean Platelet Volume 9.3 fL (7.4-10.4); Platelet Count 261 10x3/uL (130-400); RBC Distribution Width 14.2 % (11.5-14.5); Red Blood Cell (RBC) Count 4.87 mill/uL (4.20-5.40); White Blood Cell (WBC) Count 11.8 10x3/uL (4.8-10.8)
[2022-09-19 06:04] LABS: Anion Gap 15 mmol/L (10-20); BUN (Urea Nitrogen) 17 mg/dL (9.8-20.1); Calc. Creatinine Clearance 128 mL/min (70-130); Calcium 9.9 mg/dL (7.8-10.44); Carbon Dioxide 21 mmol/L (23-31); Chloride 102 mmol/L (98-107); Estimated GFR 95; Glucose 229 mg/dL (80-115); Magnesium 1.8 mg/dL (1.6-2.6); Potassium 4.4 mmol/L (3.5-5.1); Sodium 134 mmol/L (136-145)
[2022-09-19] MEDS: Famotidine 20 MG TAB PO SCH ×2 (09:32→21:47)
[2022-09-19] MEDS: Aspirin Chewable 81 MG TAB PO SCH (09:32)
[2022-09-19] MEDS: Clopidogrel Bisulfate 75 MG TAB PO SCH (09:32)
[2022-09-19] MEDS: Lisinopril 20 MG TAB PER TUBE SCH (12:39)
[2022-09-19] MEDS: Metoprolol Tartrate 25 MG TAB PO SCH ×2 (16:22→21:47)
[2022-09-19] MEDS: Insulin Glargine 30 UNITS/0.3 ML VIAL SC SCH (21:46)
[2022-09-19] MEDS: Atorvastatin Calcium 40 MG TAB PO SCH (21:47)
[2022-09-19] MEDS: Ciprofloxacin 500 MG TAB PER TUBE SCH (21:47)
[2022-09-20] MEDS: HumaLOG 300 UNITS/3 ML VIAL SC PRN ×4 (00:35→18:44)
[2022-09-20] MEDS: Ciprofloxacin 500 MG TAB PER TUBE SCH ×2 (05:37→22:00)
[2022-09-20] MEDS: Famotidine 20 MG TAB PO SCH ×2 (10:39→22:00)
[2022-09-20] MEDS: Clopidogrel Bisulfate 75 MG TAB PO SCH (10:39)
[2022-09-20] MEDS: Metoprolol Tartrate 25 MG TAB PO SCH ×2 (10:40→22:00)
[2022-09-20] MEDS: Aspirin Chewable 81 MG TAB PO SCH (10:40)
[2022-09-20] MEDS: Atorvastatin Calcium 40 MG TAB PO SCH (22:00)
[2022-09-20] MEDS: Insulin Glargine 30 UNITS/0.3 ML VIAL SC SCH (22:00)
[2022-09-21] MEDS: Ciprofloxacin 500 MG TAB PER TUBE SCH ×2 (06:04→21:13)
[2022-09-21] MEDS: HumaLOG 300 UNITS/3 ML VIAL SC PRN ×3 (06:17→18:16)
[2022-09-21] MEDS: Clopidogrel Bisulfate 75 MG TAB PO SCH (09:29)
[2022-09-21] MEDS: metFORMIN 500 MG TAB PER TUBE SCH ×2 (09:29→17:02)
[2022-09-21] MEDS: Aspirin Chewable 81 MG TAB PO SCH (09:29)
[2022-09-21] MEDS: Famotidine 20 MG TAB PO SCH ×2 (09:30→21:13)
[2022-09-21] MEDS: Metoprolol Tartrate 25 MG TAB PO SCH (09:30)
[2022-09-21] MEDS: Atorvastatin Calcium 40 MG TAB PO SCH (21:13)
[2022-09-21] MEDS: Insulin Glargine 30 UNITS/0.3 ML VIAL SC SCH (21:14)
[2022-09-22] MEDS: HumaLOG 300 UNITS/3 ML VIAL SC PRN ×4 (00:52→18:03)
[2022-09-22] MEDS: Ciprofloxacin 500 MG TAB PER TUBE SCH ×2 (06:14→21:44)
[2022-09-22] MEDS ORDERED: Metoprolol Tartrate 25 MG TAB PER TUBE SCH (09:00)
[2022-09-22] MEDS: Aspirin Chewable 81 MG TAB PO SCH (09:21)
[2022-09-22] MEDS: Famotidine 20 MG TAB PO SCH ×2 (09:21→21:44)
[2022-09-22] MEDS: metFORMIN 500 MG TAB PER TUBE SCH ×2 (09:21→17:54)
[2022-09-22] MEDS: Clopidogrel Bisulfate 75 MG TAB PO SCH (09:21)
[2022-09-22] MEDS: Metoprolol Tartrate 25 MG TAB PER TUBE SCH (21:44)
[2022-09-22] MEDS: Atorvastatin Calcium 40 MG TAB PO SCH (21:44)
[2022-09-22] MEDS: Insulin Glargine 30 UNITS/0.3 ML VIAL SC SCH (21:44)
[2022-09-23] MEDS: HumaLOG 300 UNITS/3 ML VIAL SC PRN ×3 (05:03→17:47)
[2022-09-23] MEDS: Ciprofloxacin 500 MG TAB PER TUBE SCH (05:03)
[2022-09-23 05:36] LABS: #Basophils 0.1 thou/uL (0.0-0.2); #Eosinphils 0.3 thou/uL (0.0-0.7); #Lymphocytes 2.8 thou/uL (1.20-3.40); #Monocytes 1.1 thou/uL (0.11-0.59); %Basophils 0.5 % (0.0-1.0); %Lymphocytes 19.5 % (21.0-51.0); %Monocytes 7.8 % (0.0-10.0); %Neutrophils 70.2 % (42.0-75.0); Mean Corpuscular HGB CONC 31.6 g/dL (32.0-36.0); Mean Corpuscular Hemoglobin 25.5 pg (27.0-31.0); Mean Corpuscular Volume 80.5 fl (78.0-98.0); Mean Platelet Volume 9.6 fL (7.4-10.4); Platelet Count 259 10x3/uL (130-400); RBC Distribution Width 14.6 % (11.5-14.5); Red Blood Cell (RBC) Count 4.72 mill/uL (4.20-5.40); White Blood Cell (WBC) Count 14.3 10x3/uL (4.8-10.8)
[2022-09-23 05:50] LABS: Anion Gap 15 mmol/L (10-20); BUN (Urea Nitrogen) 29 mg/dL (9.8-20.1); Calc. Creatinine Clearance 123 mL/min (70-130); Calcium 9.9 mg/dL (7.8-10.44); Carbon Dioxide 22 mmol/L (23-31); Chloride 100 mmol/L (98-107); Estimated GFR 91; Glucose 267 mg/dL (80-115); Potassium 4.4 mmol/L (3.5-5.1); Sodium 133 mmol/L (136-145)
[2022-09-23] MEDS ORDERED: Escitalopram Oxalate 10 mg Tablet PER TUBE SCH (09:00)
[2022-09-23] MEDS: metFORMIN 500 MG TAB PER TUBE SCH ×2 (10:07→16:49)
[2022-09-23] MEDS: Aspirin Chewable 81 MG TAB PO SCH (10:07)
[2022-09-23] MEDS: Clopidogrel Bisulfate 75 MG TAB PO SCH (10:07)
[2022-09-23] MEDS: Metoprolol Tartrate 25 MG TAB PER TUBE SCH ×2 (10:08→20:46)
[2022-09-23] MEDS: Famotidine 20 MG TAB PO SCH ×2 (10:08→20:46)
[2022-09-23 10:46] LABS: Bilirubin Negative (Negative); Blood, Urine 1+ (Negative); Clarity Turbid (Clear); Glucose, Urine (Dipstick) 100 mg/dL (Negative); Ketone, Urine Negative (Negative); Leukocyte 500 Leu/uL (Negative); Nitrite Negative (Negative); Protein, Urine (Dipstick) 50 mg/dL (Neg-Trace); Specific Gravity, Urine 1.025 (1.002-1.036); Squamous Epithelial 0-3 HPF (0-3); Urobilinogen Normal mg/dL (Less than 2); WBC/HPF Greater than 50 HPF (0-3); Yeast-Budding 2+ HPF (None Seen); pH, Urine 7.5 (5.0-9.0)
[2022-09-23 10:48] LABS: Bacteria/HPF 1+ HPF (None Seen)
[2022-09-23] MEDS: Insulin Glargine 30 UNITS/0.3 ML VIAL SC SCH (20:46)
[2022-09-23] MEDS: Atorvastatin Calcium 40 MG TAB PO SCH (20:46)
[2022-09-24] MEDS: Acetaminophen 325 MG TAB PO PRN ×2 (00:51→21:16)
[2022-09-24] MEDS: HumaLOG 300 UNITS/3 ML VIAL SC PRN ×3 (00:51→13:28)
[2022-09-24] MEDS: metFORMIN 500 MG TAB PER TUBE SCH ×2 (10:09→17:27)
[2022-09-24] MEDS: Clopidogrel Bisulfate 75 MG TAB PO SCH (10:10)
[2022-09-24] MEDS: Fluconazole 100 MG TAB PO SCH (10:10)
[2022-09-24] MEDS: Aspirin Chewable 81 MG TAB PO SCH (10:10)
[2022-09-24] MEDS: Metoprolol Tartrate 25 MG TAB PER TUBE SCH ×2 (10:10→21:17)
[2022-09-24] MEDS: Famotidine 20 MG TAB PO SCH ×2 (10:11→21:17)
[2022-09-24] MEDS: Insulin Glargine 30 UNITS/0.3 ML VIAL SC SCH (21:17)
[2022-09-24] MEDS: Atorvastatin Calcium 40 MG TAB PO SCH (21:17)
[2022-09-25 09:16] LABS: Anion Gap 17 mmol/L (10-20); BUN (Urea Nitrogen) 20 mg/dL (9.8-20.1); Calc. Creatinine Clearance 140 mL/min (70-130); Carbon Dioxide 20 mmol/L (23-31); Chloride 100 mmol/L (98-107); Estimated GFR 100; Glucose 112 mg/dL (80-115); Potassium 4.4 mmol/L (3.5-5.1); Sodium 133 mmol/L (136-145)
[2022-09-25 09:19] LABS: Hemoglobin 12.3 g/dL (12.0-16.0); Mean Corpuscular HGB CONC 31.5 g/dL (32.0-36.0); Mean Corpuscular Hemoglobin 25.9 pg (27.0-31.0); Mean Corpuscular Volume 82.3 fl (78.0-98.0); Mean Platelet Volume 10.2 fL (7.4-10.4); Platelet Count 238 10x3/uL (130-400); RBC Distribution Width 14.8 % (11.5-14.5); Red Blood Cell (RBC) Count 4.73 mill/uL (4.20-5.40); White Blood Cell (WBC) Count 12.1 10x3/uL (4.8-10.8)
[2022-09-25] MEDS: Aspirin Chewable 81 MG TAB PO SCH (09:49)
[2022-09-25] MEDS: Famotidine 20 MG TAB PO SCH ×2 (09:49→20:50)
[2022-09-25] MEDS: Metoprolol Tartrate 25 MG TAB PER TUBE SCH ×2 (09:49→20:50)
[2022-09-25] MEDS: metFORMIN 500 MG TAB PER TUBE SCH ×2 (09:49→16:38)
[2022-09-25] MEDS: Clopidogrel Bisulfate 75 MG TAB PO SCH (09:49)
[2022-09-25] MEDS: Fluconazole 100 MG TAB PO SCH (09:49)
[2022-09-25 11:20] LABS: Band 1 % (5-11); Eosinophils 3 % (0-10); Lymphocytes 20 % (21-51); Monocytes 5 % (0-10); Neutrophil 71 % (42-75); Platelet Morphology Comment Appears Adequate; Polychromasia SLIGHT = 2-3 cells (100X) (0-2/hpf)
[2022-09-25 11:21] LABS: MDiff Complete? YES
[2022-09-25] MEDS: Insulin Glargine 30 UNITS/0.3 ML VIAL SC SCH (20:50)
[2022-09-25] MEDS: Acetaminophen 325 MG TAB PO PRN (20:50)
[2022-09-25] MEDS: Atorvastatin Calcium 40 MG TAB PO SCH (20:50)
[2022-09-26 08:34] LABS: #Basophils 0.1 thou/uL (0.0-0.2); #Eosinphils 0.5 thou/uL (0.0-0.7); #Lymphocytes 2.5 thou/uL (1.20-3.40); #Monocytes 0.9 thou/uL (0.11-0.59); %Basophils 0.7 % (0.0-1.0); %Eosinophils 5.2 % (0.0-10.0); %Lymphocytes 24.9 % (21.0-51.0); %Monocytes 9.2 % (0.0-10.0); Hemoglobin 11.3 g/dL (12.0-16.0); Mean Corpuscular HGB CONC 31.5 g/dL (32.0-36.0); Mean Corpuscular Hemoglobin 24.7 pg (27.0-31.0); Mean Corpuscular Volume 78.6 fl (78.0-98.0); Mean Platelet Volume 9.1 fL (7.4-10.4); Platelet Count 261 10x3/uL (130-400); RBC Distribution Width 14.6 % (11.5-14.5); Red Blood Cell (RBC) Count 4.56 mill/uL (4.20-5.40); White Blood Cell (WBC) Count 10.1 10x3/uL (4.8-10.8)
[2022-09-26 08:51] LABS: Anion Gap 14 mmol/L (10-20); BUN (Urea Nitrogen) 18 mg/dL (9.8-20.1); Calc. Creatinine Clearance 142 mL/min (70-130); Calcium 9.9 mg/dL (7.8-10.44); Carbon Dioxide 24 mmol/L (23-31); Chloride 102 mmol/L (98-107); Estimated GFR 100; Glucose 128 mg/dL (80-115); Potassium 4.1 mmol/L (3.5-5.1); Sodium 136 mmol/L (136-145)
[2022-09-26] MEDS: Famotidine 20 MG TAB PO SCH ×2 (09:54→21:05)
[2022-09-26] MEDS: Fluconazole 100 MG TAB PO SCH (09:55)
[2022-09-26] MEDS: Metoprolol Tartrate 25 MG TAB PER TUBE SCH ×2 (09:55→21:05)
[2022-09-26] MEDS: Clopidogrel Bisulfate 75 MG TAB PO SCH (09:55)
[2022-09-26] MEDS: Aspirin Chewable 81 MG TAB PO SCH (09:55)
[2022-09-26] MEDS: metFORMIN 500 MG TAB PER TUBE SCH ×2 (09:55→17:41)
[2022-09-26] MEDS: Atorvastatin Calcium 40 MG TAB PO SCH (21:05)
[2022-09-26] MEDS: Insulin Glargine 30 UNITS/0.3 ML VIAL SC SCH (21:05)
[2022-09-27] MEDS: Famotidine 20 MG TAB PO SCH ×2 (08:42→21:06)
[2022-09-27] MEDS: Fluconazole 100 MG TAB PO SCH (08:42)
[2022-09-27] MEDS: metFORMIN 500 MG TAB PER TUBE SCH ×2 (08:42→17:29)
[2022-09-27] MEDS: Metoprolol Tartrate 25 MG TAB PER TUBE SCH ×2 (08:42→21:06)
[2022-09-27] MEDS: Aspirin Chewable 81 MG TAB PO SCH (08:42)
[2022-09-27] MEDS: Clopidogrel Bisulfate 75 MG TAB PO SCH (08:42)
[2022-09-27] MEDS: Insulin Glargine 30 UNITS/0.3 ML VIAL SC SCH (21:06)
[2022-09-27] MEDS: Atorvastatin Calcium 40 MG TAB PO SCH (21:06)
[2022-09-28] MEDS: Aspirin Chewable 81 MG TAB PO SCH (09:28)
[2022-09-28] MEDS: Clopidogrel Bisulfate 75 MG TAB PO SCH (09:28)
[2022-09-28] MEDS: Metoprolol Tartrate 25 MG TAB PER TUBE SCH ×2 (09:28→20:27)
[2022-09-28] MEDS: Fluconazole 100 MG TAB PO SCH (09:28)
[2022-09-28] MEDS: metFORMIN 500 MG TAB PER TUBE SCH ×2 (09:28→18:09)
[2022-09-28] MEDS: Famotidine 20 MG TAB PO SCH ×2 (09:28→20:27)
[2022-09-28] MEDS: HumaLOG 300 UNITS/3 ML VIAL SC PRN ×3 (11:56→20:27)
[2022-09-28] MEDS: Insulin Glargine 30 UNITS/0.3 ML VIAL SC SCH (20:26)
[2022-09-28] MEDS: Atorvastatin Calcium 40 MG TAB PO SCH (20:26)
[2022-09-29] MEDS: HumaLOG 300 UNITS/3 ML VIAL SC PRN (05:37)
[2022-09-29] MEDS: Famotidine 20 MG TAB PO SCH ×2 (08:30→20:17)
[2022-09-29] MEDS: Aspirin Chewable 81 MG TAB PO SCH (08:30)
[2022-09-29] MEDS: Clopidogrel Bisulfate 75 MG TAB PO SCH (08:30)
[2022-09-29] MEDS: metFORMIN 500 MG TAB PER TUBE SCH ×2 (08:30→17:01)
[2022-09-29] MEDS: Metoprolol Tartrate 25 MG TAB PER TUBE SCH ×2 (08:30→20:17)
[2022-09-29] MEDS: Insulin Glargine 30 UNITS/0.3 ML VIAL SC SCH (20:17)
[2022-09-29] MEDS: Atorvastatin Calcium 40 MG TAB PO SCH (20:17)
[2022-09-30] MEDS: Metoprolol Tartrate 25 MG TAB PER TUBE SCH ×2 (10:43→20:25)
[2022-09-30] MEDS: Clopidogrel Bisulfate 75 MG TAB PO SCH (10:43)
[2022-09-30] MEDS: Famotidine 20 MG TAB PO SCH ×2 (10:43→20:25)
[2022-09-30] MEDS: Aspirin Chewable 81 MG TAB PO SCH (10:43)
[2022-09-30] MEDS: metFORMIN 500 MG TAB PER TUBE SCH ×2 (10:43→17:58)
[2022-09-30] MEDS: Insulin Glargine 30 UNITS/0.3 ML VIAL SC SCH (20:25)
[2022-09-30] MEDS: Atorvastatin Calcium 40 MG TAB PO SCH (20:25)
[2022-10-01] MEDS: Famotidine 20 MG TAB PO SCH ×2 (09:07→21:08)
[2022-10-01] MEDS: metFORMIN 500 MG TAB PER TUBE SCH ×2 (09:07→16:58)
[2022-10-01] MEDS: Metoprolol Tartrate 25 MG TAB PER TUBE SCH ×2 (09:08→21:08)
[2022-10-01] MEDS: Aspirin Chewable 81 MG TAB PO SCH (09:08)
[2022-10-01] MEDS: Clopidogrel Bisulfate 75 MG TAB PO SCH (09:08)
[2022-10-01] MEDS: Insulin Glargine 30 UNITS/0.3 ML VIAL SC SCH (21:08)
[2022-10-01] MEDS: Atorvastatin Calcium 40 MG TAB PO SCH (21:08)
[2022-10-02] MEDS: HumaLOG 300 UNITS/3 ML VIAL SC PRN (05:14)
[2022-10-02] MEDS: Aspirin Chewable 81 MG TAB PO SCH (09:28)
[2022-10-02] MEDS: Clopidogrel Bisulfate 75 MG TAB PO SCH (09:28)
[2022-10-02] MEDS: Famotidine 20 MG TAB PO SCH ×2 (09:28→20:39)
[2022-10-02] MEDS: metFORMIN 500 MG TAB PER TUBE SCH ×2 (09:28→16:49)
[2022-10-02] MEDS: Metoprolol Tartrate 25 MG TAB PER TUBE SCH ×2 (09:28→20:39)
[2022-10-02] MEDS: Atorvastatin Calcium 40 MG TAB PO SCH (20:39)
[2022-10-02] MEDS: Insulin Glargine 30 UNITS/0.3 ML VIAL SC SCH (20:39)
[2022-10-03] MEDS: HumaLOG 300 UNITS/3 ML VIAL SC PRN ×2 (05:39→12:44)
[2022-10-03] MEDS: Clopidogrel Bisulfate 75 MG TAB PO SCH (08:25)
[2022-10-03] MEDS: Aspirin Chewable 81 MG TAB PO SCH (08:25)
[2022-10-03] MEDS: Metoprolol Tartrate 25 MG TAB PER TUBE SCH ×2 (08:25→21:58)
[2022-10-03] MEDS: Famotidine 20 MG TAB PO SCH ×2 (08:25→21:57)
[2022-10-03] MEDS: metFORMIN 500 MG TAB PER TUBE SCH ×2 (08:25→16:14)
[2022-10-03] MEDS: Escitalopram Oxalate 20 mg Tablet PER TUBE SCH (10:56)
[2022-10-03] MEDS: Insulin Glargine 30 UNITS/0.3 ML VIAL SC SCH (21:58)
[2022-10-03] MEDS: Atorvastatin Calcium 40 MG TAB PO SCH (21:58)
[2022-10-04] MEDS: HumaLOG 300 UNITS/3 ML VIAL SC PRN (05:58)
[2022-10-04] MEDS: Metoprolol Tartrate 25 MG TAB PER TUBE SCH ×2 (09:06→21:52)
[2022-10-04] MEDS: Famotidine 20 MG TAB PO SCH ×2 (09:06→21:52)
[2022-10-04] MEDS: Clopidogrel Bisulfate 75 MG TAB PO SCH (09:07)
[2022-10-04] MEDS: Aspirin Chewable 81 MG TAB PO SCH (09:07)
[2022-10-04] MEDS: metFORMIN 500 MG TAB PER TUBE SCH ×2 (09:07→17:53)
[2022-10-04] MEDS: Escitalopram Oxalate 20 mg Tablet PER TUBE SCH (09:08)
[2022-10-04] MEDS: Insulin Glargine 30 UNITS/0.3 ML VIAL SC SCH (21:52)
[2022-10-04] MEDS: Atorvastatin Calcium 40 MG TAB PO SCH (21:52)
[2022-10-05] MEDS: HumaLOG 300 UNITS/3 ML VIAL SC PRN (06:24)
[2022-10-05] MEDS: Acetaminophen 325 MG TAB PO PRN (08:30)
[2022-10-05] MEDS: Escitalopram Oxalate 20 mg Tablet PER TUBE SCH (08:31)
[2022-10-05] MEDS: Famotidine 20 MG TAB PO SCH ×2 (08:31→20:24)
[2022-10-05] MEDS: Metoprolol Tartrate 25 MG TAB PER TUBE SCH ×2 (08:31→20:31)
[2022-10-05] MEDS: metFORMIN 500 MG TAB PER TUBE SCH ×2 (08:31→17:38)
[2022-10-05] MEDS: Clopidogrel Bisulfate 75 MG TAB PO SCH (08:31)
[2022-10-05] MEDS: Aspirin Chewable 81 MG TAB PO SCH (08:32)
[2022-10-05] MEDS: Atorvastatin Calcium 40 MG TAB PO SCH (20:24)
[2022-10-05] MEDS: Insulin Glargine 30 UNITS/0.3 ML VIAL SC SCH (21:01)
[2022-10-06] MEDS: Clopidogrel Bisulfate 75 MG TAB PO SCH (08:19)
[2022-10-06] MEDS: metFORMIN 500 MG TAB PER TUBE SCH ×2 (08:19→16:57)
[2022-10-06] MEDS: Aspirin Chewable 81 MG TAB PO SCH (08:19)
[2022-10-06] MEDS: Escitalopram Oxalate 20 mg Tablet PER TUBE SCH (08:20)
[2022-10-06] MEDS: Famotidine 20 MG TAB PO SCH ×2 (08:20→20:26)
[2022-10-06] MEDS: Metoprolol Tartrate 25 MG TAB PER TUBE SCH ×2 (08:20→20:26)
[2022-10-06] MEDS: Atorvastatin Calcium 40 MG TAB PO SCH (20:26)
[2022-10-06] MEDS: Insulin Glargine 30 UNITS/0.3 ML VIAL SC SCH (20:27)
[2022-10-07] MEDS: Clopidogrel Bisulfate 75 MG TAB PO SCH (09:28)
[2022-10-07] MEDS: metFORMIN 500 MG TAB PER TUBE SCH ×2 (09:28→18:22)
[2022-10-07] MEDS: Aspirin Chewable 81 MG TAB PO SCH (09:28)
[2022-10-07] MEDS: Acetaminophen 325 MG TAB PO PRN (09:29)
[2022-10-07] MEDS: Famotidine 20 MG TAB PO SCH ×2 (09:29→20:56)
[2022-10-07] MEDS: Escitalopram Oxalate 20 mg Tablet PER TUBE SCH (09:29)
[2022-10-07] MEDS: Metoprolol Tartrate 25 MG TAB PER TUBE SCH ×2 (09:29→20:56)
[2022-10-07] MEDS: Insulin Glargine 30 UNITS/0.3 ML VIAL SC SCH (20:56)
[2022-10-07] MEDS: Atorvastatin Calcium 40 MG TAB PO SCH (20:56)
[2022-10-08] MEDS: Escitalopram Oxalate 20 mg Tablet PER TUBE SCH (09:33)
[2022-10-08] MEDS: Clopidogrel Bisulfate 75 MG TAB PO SCH (09:33)
[2022-10-08] MEDS: Aspirin Chewable 81 MG TAB PO SCH (09:33)
[2022-10-08] MEDS: metFORMIN 500 MG TAB PER TUBE SCH ×2 (09:33→16:39)
[2022-10-08] MEDS: Famotidine 20 MG TAB PO SCH ×2 (09:33→20:50)
[2022-10-08] MEDS: Metoprolol Tartrate 25 MG TAB PER TUBE SCH ×2 (09:34→20:50)
[2022-10-08] MEDS: Metoclopramide HCl 10 MG/2 ML VIAL IVP SCH ×2 (15:11→20:50)
[2022-10-08] MEDS: Insulin Glargine 30 UNITS/0.3 ML VIAL SC SCH (20:50)
[2022-10-08] MEDS: Acetaminophen 325 MG TAB PO PRN (20:50)
[2022-10-08] MEDS: Atorvastatin Calcium 40 MG TAB PO SCH (20:50)
[2022-10-09 07:04] LABS: Hemoglobin 11.5 g/dL (12.0-16.0); Mean Corpuscular HGB CONC 32.6 g/dL (32.0-36.0); Mean Corpuscular Volume 79.6 fl (78.0-98.0); Mean Platelet Volume 9.1 fL (7.4-10.4); Platelet Count 284 10x3/uL (130-400); RBC Distribution Width 14.7 % (11.5-14.5); Red Blood Cell (RBC) Count 4.42 mill/uL (4.20-5.40); White Blood Cell (WBC) Count 10.8 10x3/uL (4.8-10.8)
[2022-10-09 07:14] LABS: Anion Gap 15 mmol/L (10-20); BUN (Urea Nitrogen) 14 mg/dL (9.8-20.1); Calc. Creatinine Clearance 149 mL/min (70-130); Calcium 10.3 mg/dL (7.8-10.44); Carbon Dioxide 27 mmol/L (23-31); Chloride 101 mmol/L (98-107); Estimated GFR 101; Glucose 96 mg/dL (80-115); Potassium 3.9 mmol/L (3.5-5.1); Sodium 139 mmol/L (136-145)
[2022-10-09] MEDS: Metoclopramide HCl 10 MG/2 ML VIAL IVP SCH (07:46)
[2022-10-09] MEDS: Famotidine 20 MG TAB PO SCH ×2 (08:47→20:15)
[2022-10-09] MEDS: Escitalopram Oxalate 20 mg Tablet PER TUBE SCH (08:47)
[2022-10-09] MEDS: Aspirin Chewable 81 MG TAB PO SCH (08:47)
[2022-10-09] MEDS: metFORMIN 500 MG TAB PER TUBE SCH ×2 (08:47→17:09)
[2022-10-09] MEDS: Clopidogrel Bisulfate 75 MG TAB PO SCH (08:47)
[2022-10-09] MEDS: Metoprolol Tartrate 25 MG TAB PER TUBE SCH ×2 (08:48→20:16)
[2022-10-09] MEDS: Insulin Glargine 30 UNITS/0.3 ML VIAL SC SCH (20:15)
[2022-10-09] MEDS: Atorvastatin Calcium 40 MG TAB PO SCH (20:15)
[2022-10-10] MEDS: Aspirin Chewable 81 MG TAB PO SCH (08:59)
[2022-10-10] MEDS: Clopidogrel Bisulfate 75 MG TAB PO SCH (08:59)
[2022-10-10] MEDS: Famotidine 20 MG TAB PO SCH ×2 (08:59→20:34)
[2022-10-10] MEDS: Metoprolol Tartrate 25 MG TAB PER TUBE SCH ×2 (08:59→20:34)
[2022-10-10] MEDS: Escitalopram Oxalate 20 mg Tablet PER TUBE SCH (08:59)
[2022-10-10] MEDS: metFORMIN 500 MG TAB PER TUBE SCH (08:59)
[2022-10-10] MEDS ORDERED: Metoclopramide HCl 10 MG/2 ML VIAL IVP SCH (14:00)
[2022-10-10] MEDS: Insulin Glargine 30 UNITS/0.3 ML VIAL SC SCH (20:34)
[2022-10-10] MEDS: Atorvastatin Calcium 40 MG TAB PO SCH (20:34)
[2022-10-11] MEDS: Metoprolol Tartrate 25 MG TAB PER TUBE SCH ×2 (10:24→20:28)
[2022-10-11] MEDS: Famotidine 20 MG TAB PO SCH ×2 (10:24→20:28)
[2022-10-11] MEDS: Escitalopram Oxalate 20 mg Tablet PER TUBE SCH (10:24)
[2022-10-11] MEDS: Aspirin Chewable 81 MG TAB PO SCH (10:24)
[2022-10-11] MEDS: Clopidogrel Bisulfate 75 MG TAB PO SCH (10:24)
[2022-10-11] MEDS: HumaLOG 300 UNITS/3 ML VIAL SC PRN ×2 (13:29→18:26)
[2022-10-11] MEDS: Atorvastatin Calcium 40 MG TAB PO SCH (20:28)
[2022-10-11] MEDS: Insulin Glargine 30 UNITS/0.3 ML VIAL SC SCH (20:29)
[2022-10-12] MEDS: HumaLOG 300 UNITS/3 ML VIAL SC PRN ×3 (05:43→17:55)
[2022-10-12] MEDS: Clopidogrel Bisulfate 75 MG TAB PO SCH (09:55)
[2022-10-12] MEDS: Metoprolol Tartrate 25 MG TAB PER TUBE SCH ×2 (09:56→21:49)
[2022-10-12] MEDS: Escitalopram Oxalate 20 mg Tablet PER TUBE SCH (09:56)
[2022-10-12] MEDS: Famotidine 20 MG TAB PO SCH ×2 (09:56→21:49)
[2022-10-12] MEDS: Atorvastatin Calcium 40 MG TAB PO SCH (21:49)
[2022-10-12] MEDS: Acetaminophen 325 MG TAB PO PRN (21:49)
[2022-10-12] MEDS: Insulin Glargine 30 UNITS/0.3 ML VIAL SC SCH (21:50)
[2022-10-13] MEDS: Escitalopram Oxalate 20 mg Tablet PER TUBE SCH (09:07)
[2022-10-13] MEDS: Famotidine 20 MG TAB PO SCH ×2 (09:07→21:02)
[2022-10-13] MEDS: Clopidogrel Bisulfate 75 MG TAB PO SCH (09:07)
[2022-10-13] MEDS: Metoprolol Tartrate 25 MG TAB PER TUBE SCH ×2 (09:07→21:02)
[2022-10-13] MEDS: Aspirin Chewable 81 MG TAB PO SCH (09:07)
[2022-10-13] MEDS: HumaLOG 300 UNITS/3 ML VIAL SC PRN ×2 (11:54→18:31)
[2022-10-13] MEDS: Insulin Glargine 30 UNITS/0.3 ML VIAL SC SCH (21:02)
[2022-10-13] MEDS: Atorvastatin Calcium 40 MG TAB PO SCH (21:02)
[2022-10-14] MEDS: HumaLOG 300 UNITS/3 ML VIAL SC PRN ×2 (06:56→18:42)
[2022-10-14] MEDS: Escitalopram Oxalate 20 mg Tablet PER TUBE SCH (10:08)
[2022-10-14] MEDS: Aspirin Chewable 81 MG TAB PO SCH (10:08)
[2022-10-14] MEDS: Clopidogrel Bisulfate 75 MG TAB PO SCH (10:08)
[2022-10-14] MEDS: Famotidine 20 MG TAB PO SCH ×2 (10:08→22:13)
[2022-10-14] MEDS: Metoprolol Tartrate 25 MG TAB PER TUBE SCH ×2 (10:08→22:13)
[2022-10-14] MEDS: Acetaminophen 325 MG TAB PO PRN ×2 (18:06→22:13)
[2022-10-14] MEDS: Atorvastatin Calcium 40 MG TAB PO SCH (22:12)
[2022-10-14] MEDS: Insulin Glargine 30 UNITS/0.3 ML VIAL SC SCH (22:13)
[2022-10-15] MEDS: HumaLOG 300 UNITS/3 ML VIAL SC PRN ×2 (06:21→18:30)
[2022-10-15] MEDS: Escitalopram Oxalate 20 mg Tablet PER TUBE SCH (08:03)
[2022-10-15] MEDS: Aspirin Chewable 81 MG TAB PO SCH (08:03)
[2022-10-15] MEDS: Famotidine 20 MG TAB PO SCH ×2 (08:03→21:07)
[2022-10-15] MEDS: Clopidogrel Bisulfate 75 MG TAB PO SCH (08:03)
[2022-10-15] MEDS: Metoprolol Tartrate 25 MG TAB PER TUBE SCH ×2 (08:03→21:07)
[2022-10-15] MEDS: Acetaminophen 325 MG TAB PO PRN (18:29)
[2022-10-15] MEDS: Insulin Glargine 30 UNITS/0.3 ML VIAL SC SCH (21:06)
[2022-10-15] MEDS: Folic Acid 1 MG TAB PO SCH (21:07)
[2022-10-15] MEDS: Atorvastatin Calcium 40 MG TAB PO SCH (21:07)
[2022-10-15] MEDS: Cyanocobalamin (Vitamin B-12) 1,000 MCG TAB PO SCH (21:07)
[2022-10-16] MEDS: HumaLOG 300 UNITS/3 ML VIAL SC PRN ×3 (05:37→21:19)
[2022-10-16 05:39] LABS: #Basophils 0.1 thou/uL (0.0-0.2); #Eosinphils 0.4 thou/uL (0.0-0.7); #Monocytes 1.1 thou/uL (0.11-0.59); #Neutrophils 7.7 thou/uL (1.40-6.50); %Basophils 0.8 % (0.0-1.0); %Eosinophils 3.5 % (0.0-10.0); %Lymphocytes 21.6 % (21.0-51.0); %Monocytes 9.1 % (0.0-10.0); %Neutrophils 64.6 % (42.0-75.0); Hemoglobin 10.6 g/dL (12.0-16.0); Mean Corpuscular HGB CONC 30.6 g/dL (32.0-36.0); Mean Corpuscular Hemoglobin 24.2 pg (27.0-31.0); Mean Platelet Volume 10.5 fL (7.4-10.4); Platelet Count 368 10x3/uL (130-400); RBC Distribution Width 15.2 % (11.5-14.5); Red Blood Cell (RBC) Count 4.38 mill/uL (4.20-5.40)
[2022-10-16 06:03] LABS: ALT (SGPT) 14 U/L (8-55); AST (SGOT) 12 U/L (5-34); Albumin 3.6 g/dL (3.4-4.8); Alkaline Phosphatase 70 U/L (40-110); Anion Gap 13 mmol/L (10-20); BUN (Urea Nitrogen) 10 mg/dL (9.8-20.1); Bilirubin, Total 0.5 mg/dL (0.2-1.2); Calc. Creatinine Clearance 140 mL/min (70-130); Calcium 9.8 mg/dL (7.8-10.44); Carbon Dioxide 27 mmol/L (23-31); Chloride 101 mmol/L (98-107); Estimated GFR 99; Globulin 3.5 g/dL (2.4-3.5); Glucose 224 mg/dL (80-115); Magnesium 1.8 mg/dL (1.6-2.6); Phosphorus 3.3 mg/dL (2.3-4.7); Potassium 4.3 mmol/L (3.5-5.1); Protein, Total 7.1 g/dL (5.8-8.1); Sodium 137 mmol/L (136-145)
[2022-10-16] MEDS: Clopidogrel Bisulfate 75 MG TAB PO SCH (08:48)
[2022-10-16] MEDS: Escitalopram Oxalate 20 mg Tablet PER TUBE SCH (08:48)
[2022-10-16] MEDS: Famotidine 20 MG TAB PO SCH ×2 (08:48→21:20)
[2022-10-16] MEDS: Aspirin Chewable 81 MG TAB PO SCH (08:48)
[2022-10-16] MEDS: Metoprolol Tartrate 25 MG TAB PER TUBE SCH ×2 (08:48→21:20)
[2022-10-16] MEDS ORDERED: Electrolyte Replacement Protocol 1 EACH FS SCH (10:30)
[2022-10-16] MEDS ORDERED: Electrolyte Replacement Protocol FS PRN (11:00)
[2022-10-16] MEDS ORDERED: Magnesium 2 GM/50 ML(in water) 2 GM in Premix Bag 1 BAG IVPB SCH (11:00)
[2022-10-16] MEDS: Insulin Glargine 30 UNITS/0.3 ML VIAL SC SCH (21:19)
[2022-10-16] MEDS: Cyanocobalamin (Vitamin B-12) 1,000 MCG TAB PO SCH (21:20)
[2022-10-16] MEDS: Atorvastatin Calcium 40 MG TAB PO SCH (21:20)
[2022-10-16] MEDS: Folic Acid 1 MG TAB PO SCH (21:20)
[2022-10-17] MEDS: Clopidogrel Bisulfate 75 MG TAB PO SCH (08:44)
[2022-10-17] MEDS: Aspirin Chewable 81 MG TAB PO SCH (08:44)
[2022-10-17] MEDS: Escitalopram Oxalate 20 mg Tablet PER TUBE SCH (08:44)
[2022-10-17] MEDS: Famotidine 20 MG TAB PO SCH ×2 (08:44→20:26)
[2022-10-17] MEDS: Metoprolol Tartrate 25 MG TAB PER TUBE SCH ×2 (12:21→20:26)
[2022-10-17] MEDS: HumaLOG 300 UNITS/3 ML VIAL SC PRN ×2 (18:23→20:21)
[2022-10-17] MEDS: Insulin Glargine 30 UNITS/0.3 ML VIAL SC SCH (20:24)
[2022-10-17] MEDS: Cyanocobalamin (Vitamin B-12) 1,000 MCG TAB PO SCH (20:26)
[2022-10-17] MEDS: Folic Acid 1 MG TAB PO SCH (20:26)
[2022-10-17] MEDS: Atorvastatin Calcium 40 MG TAB PO SCH (20:26)
[2022-10-18] MEDS: HumaLOG 300 UNITS/3 ML VIAL SC PRN ×3 (05:03→17:39)
[2022-10-18 06:11] LABS: #Basophils 0.1 thou/uL (0.0-0.2); #Eosinphils 0.6 thou/uL (0.0-0.7); #Monocytes 1.1 thou/uL (0.11-0.59); #Neutrophils 6.9 thou/uL (1.40-6.50); %Basophils 0.9 % (0.0-1.0); %Lymphocytes 25.8 % (21.0-51.0); %Monocytes 9.2 % (0.0-10.0); %Neutrophils 58.6 % (42.0-75.0); Hemoglobin 11.1 g/dL (12.0-16.0); Mean Corpuscular HGB CONC 29.6 g/dL (32.0-36.0); Mean Corpuscular Hemoglobin 23.8 pg (27.0-31.0); Mean Corpuscular Volume 80.3 fl (78.0-98.0); Mean Platelet Volume 10.4 fL (7.4-10.4); Platelet Count 365 10x3/uL (130-400); RBC Distribution Width 15.5 % (11.5-14.5); Red Blood Cell (RBC) Count 4.67 mill/uL (4.20-5.40); White Blood Cell (WBC) Count 11.7 10x3/uL (4.8-10.8)
[2022-10-18 06:33] LABS: Anion Gap 14 mmol/L (10-20); BUN (Urea Nitrogen) 13 mg/dL (9.8-20.1); Calc. Creatinine Clearance 142 mL/min (70-130); Calcium 10.2 mg/dL (7.8-10.44); Carbon Dioxide 26 mmol/L (23-31); Chloride 102 mmol/L (98-107); Estimated GFR 100; Glucose 186 mg/dL (80-115); Potassium 4.6 mmol/L (3.5-5.1); Sodium 137 mmol/L (136-145)
[2022-10-18] MEDS: Clopidogrel Bisulfate 75 MG TAB PO SCH (10:10)
[2022-10-18] MEDS: Escitalopram Oxalate 20 mg Tablet PER TUBE SCH (10:10)
[2022-10-18] MEDS: Aspirin Chewable 81 MG TAB PO SCH (10:10)
[2022-10-18] MEDS: Famotidine 20 MG TAB PO SCH ×2 (10:10→23:20)
[2022-10-18] MEDS: Metoprolol Tartrate 25 MG TAB PER TUBE SCH ×2 (10:10→23:20)
[2022-10-18] MEDS: Atorvastatin Calcium 40 MG TAB PO SCH (23:20)
[2022-10-18] MEDS: Folic Acid 1 MG TAB PO SCH (23:20)
[2022-10-18] MEDS: Cyanocobalamin (Vitamin B-12) 1,000 MCG TAB PO SCH (23:20)
[2022-10-18] MEDS: Insulin Glargine 30 UNITS/0.3 ML VIAL SC SCH (23:34)
[2022-10-19] MEDS: Aspirin Chewable 81 MG TAB PO SCH (08:10)
[2022-10-19] MEDS: Metoprolol Tartrate 25 MG TAB PER TUBE SCH ×2 (08:10→21:57)
[2022-10-19] MEDS: Escitalopram Oxalate 20 mg Tablet PER TUBE SCH (08:10)
[2022-10-19] MEDS: Clopidogrel Bisulfate 75 MG TAB PO SCH (08:10)
[2022-10-19] MEDS: Famotidine 20 MG TAB PO SCH ×2 (08:10→21:57)
[2022-10-19] MEDS: Atorvastatin Calcium 40 MG TAB PO SCH (21:57)
[2022-10-19] MEDS: Folic Acid 1 MG TAB PO SCH (21:58)
[2022-10-19] MEDS: Cyanocobalamin (Vitamin B-12) 1,000 MCG TAB PO SCH (21:58)
[2022-10-19] MEDS: Insulin Glargine 30 UNITS/0.3 ML VIAL SC SCH (22:00)
[2022-10-20] MEDS: Famotidine 20 MG TAB PO SCH ×2 (09:03→21:32)
[2022-10-20] MEDS: Aspirin Chewable 81 MG TAB PO SCH (09:03)
[2022-10-20] MEDS: Clopidogrel Bisulfate 75 MG TAB PO SCH (09:03)
[2022-10-20] MEDS: Escitalopram Oxalate 20 mg Tablet PER TUBE SCH (09:03)
[2022-10-20] MEDS: Metoprolol Tartrate 25 MG TAB PER TUBE SCH ×2 (09:03→21:32)
[2022-10-20] MEDS: Folic Acid 1 MG TAB PO SCH (21:32)
[2022-10-20] MEDS: Insulin Glargine 30 UNITS/0.3 ML VIAL SC SCH (21:32)
[2022-10-20] MEDS: Cyanocobalamin (Vitamin B-12) 1,000 MCG TAB PO SCH (21:32)
[2022-10-20] MEDS: Atorvastatin Calcium 40 MG TAB PO SCH (21:32)
[2022-10-21] MEDS: HumaLOG 300 UNITS/3 ML VIAL SC PRN ×4 (06:06→21:38)
[2022-10-21] MEDS: Escitalopram Oxalate 20 mg Tablet PER TUBE SCH (08:24)
[2022-10-21] MEDS: Metoprolol Tartrate 25 MG TAB PER TUBE SCH ×2 (08:24→21:37)
[2022-10-21] MEDS: Famotidine 20 MG TAB PO SCH ×2 (08:24→21:37)
[2022-10-21] MEDS: Clopidogrel Bisulfate 75 MG TAB PO SCH (08:24)
[2022-10-21] MEDS: Aspirin Chewable 81 MG TAB PO SCH (08:24)
[2022-10-21] MEDS: Cyanocobalamin (Vitamin B-12) 1,000 MCG TAB PO SCH (21:37)
[2022-10-21] MEDS: Atorvastatin Calcium 40 MG TAB PO SCH (21:37)
[2022-10-21] MEDS: Folic Acid 1 MG TAB PO SCH (21:37)
[2022-10-21] MEDS: Insulin Glargine 30 UNITS/0.3 ML VIAL SC SCH (21:39)
[2022-10-22] MEDS: HumaLOG 300 UNITS/3 ML VIAL SC PRN ×2 (05:47→13:08)
[2022-10-22] MEDS: Famotidine 20 MG TAB PO SCH (09:41)
[2022-10-22] MEDS: Metoprolol Tartrate 25 MG TAB PER TUBE SCH (09:41)
[2022-10-22] MEDS: Escitalopram Oxalate 20 mg Tablet PER TUBE SCH (09:41)
[2022-10-22] MEDS: Aspirin Chewable 81 MG TAB PO SCH (09:41)
[2022-10-22] MEDS: Clopidogrel Bisulfate 75 MG TAB PO SCH (09:41)
[2022-10-22 13:08] VITALS: BP 135/83; TEMP 99.1
== END 2022-10-22 13:29 | DRG 64 ==
LOC: ERS 22:32 → NEURO 09-02 01:38 → ERHOLD 09-02 02:21 → NEURO 09-02 17:48 → T4-A 09-25 17:07
PROVIDERS: ADMIT Internal Medicine; ATTEND Internal Medicine
PROC: 0DH63UZ Insertion of Feeding Device into Stomach, Percutaneous Approach (ICD-10-PCS; principal; 2022-09-11)
DX: I63.81 Other cerebral infarction due to occlusion or stenosis of small artery (principal); I21.A1 Myocardial infarction type 2; I50.32 Chronic diastolic (congestive) heart failure; I69.954 Hemiplegia and hemiparesis following unspecified cerebrovascular disease affecting left non-dominant side; G45.8 Other transient cerebral ischemic attacks and related syndromes; I47.29 Other ventricular tachycardia; N39.0 Urinary tract infection, site not specified; G93.40 Encephalopathy, unspecified; E78.5 Hyperlipidemia, unspecified; I11.0 Hypertensive heart disease with heart failure; I25.10 Atherosclerotic heart disease of native coronary artery without angina pectoris; E11.65 Type 2 diabetes mellitus with hyperglycemia; R13.10 Dysphagia, unspecified; G93.89 Other specified disorders of brain; E66.9 Obesity, unspecified; R47.01 Aphasia; R47.1 Dysarthria and anarthria; R13.12 Dysphagia, oropharyngeal phase; Z90.710 Acquired absence of both cervix and uterus; I69.991 Dysphagia following unspecified cerebrovascular disease; Z88.0 Allergy status to penicillin; Z88.8 Allergy status to other drugs, medicaments and biological substances; Z79.899 Other long term (current) drug therapy; Z95.5 Presence of coronary angioplasty implant and graft; Z87.891 Personal history of nicotine dependence; Z98.51 Tubal ligation status; Z90.49 Acquired absence of other specified parts of digestive tract; Z68.30 Body mass index [BMI] 30.0-30.9, adult; Z91.199 Patient's noncompliance with other medical treatment and regimen due to unspecified reason
CPT/HCPCS: 36415; 36416; 51701; 70450; 70551; 71045; 74230; 80048; 80053; 80061; 80076; 80202; 80306; 80307; 81001; 81003; 81015; 82140; 82553; 83036; 83605; 83735; 84100; 84145; 84443; 84484; 85025; 85027; 87040; 87086; 93005; 93010; 93880; 93970; 95712; 95819; 95957; 96374; J0360; J1644; J1650; J1815; J1956; J2310; J2370; J2405; J2704; J2765; J3370; J3475; J3490

== ENCOUNTER 2024-06-18 15:35 | Emergency (ER) | payer MEDICAID, OTHER | END 2024-06-18 19:45 | disposition home or self-care (01) | LOC: ERS 15:35 | DX: T15.91XA Foreign body on external eye, part unspecified, right eye, initial encounter (principal); I10 Essential (primary) hypertension; E78.5 Hyperlipidemia, unspecified; E11.9 Type 2 diabetes mellitus without complications; Z79.82 Long term (current) use of aspirin; Z79.84 Long term (current) use of oral hypoglycemic drugs; Z79.899 Other long term (current) drug therapy; Z86.718 Personal history of other venous thrombosis and embolism | CPT/HCPCS: 99283 ==

== ENCOUNTER 2024-12-21 16:45 | Inpatient (IN) | payer OTHER ==
[2024-12-21 17:51] LABS: #Basophils 0.05 10x3/uL (0.0-0.2); #Eosinophils 0.24 10x3/uL (0.0-0.7); #Monocytes 0.87 10x3/uL (0.11-0.59); #Neutrophils 6.12 10x3/uL (1.40-6.50); %Basophils 0.5 % (0.0-1.0); %Eosinophils 2.4 % (0.0-10.0); %Lymphocytes 25.8 % (21.0-51.0); %Monocytes 8.8 % (0.0-10.0); %Neutrophils 62.1 % (42.0-75.0); Hematocrit 21.0 % (36.0-47.0); Hemoglobin 6.1 g/dL (12.0-16.0); Mean Corpuscular Hemoglobin 19.8 pg (27.0-31.0); Mean Corpuscular Volume 68.2 fL (78.0-98.0); Platelet Count 461 10x3/uL (130-400); Red Blood Cell (RBC) Count 3.08 mill/uL (4.20-5.40); White Blood Cell (WBC) Count 9.86 10x3/uL (4.8-10.8)
[2024-12-21 18:02] LABS: INR-International Normal Ratio 1.2; PTT 26.5 sec (22.9-36.1); Prothrombin Time 15.1 sec (12.0-14.7)
[2024-12-21 18:08] LABS: Troponin I 0.025 ng/mL (< 0.028)
[2024-12-21 18:59] LABS: Iron 44 ug/dL (50-170); Iron Binding Capacity, Total 301 mcg/dL (265-497)
[2024-12-21 19:08] LABS: Anisocytosis MODERATE=16-30 cells (100X) (0-5/hpf); Macrocytosis SLIGHT = 6-15 cells (100X) (0-5/hpf); Microcytosis MODERATE=15-30 cells (100X) (0-5/hpf); Plasma Cells 0 % (0-0); Polychromasia SLIGHT = 2-3 cells (100X) (0-2/hpf)
[2024-12-21 22:51] LABS: ALT (SGPT) 10 U/L (Less than 34); AST (SGOT) 19 U/L (11-34); Albumin 3.1 g/dL (3.1-4.5); Alkaline Phosphatase 70 U/L (40-110); Anion Gap 13 mmol/L (10-20); BUN (Urea Nitrogen) 17 mg/dL (9.8-20.1); Bilirubin, Total 0.8 mg/dL (0.3-1.2); Calc. Creatinine Clearance 0 mL/min (70-130); Calcium 9.2 mg/dL (7.8-10.44); Carbon Dioxide 21 mmol/L (23-31); Chloride 108 mmol/L (98-107); Globulin 4.4 g/dL (2.4-3.5); Glucose 87 mg/dL (80-115); Potassium 4.3 mmol/L (3.5-5.1); Sodium 138 mmol/L (136-145)
[2024-12-21] MEDS: Acetaminophen 325 MG TAB PO PRN (22:57)
[2024-12-22] MEDS ORDERED: Dextrose 50% Abboject 50 ML SYRINGE SLOW IVP PRN (00:19)
[2024-12-22] MEDS ORDERED: Glucagon 1 MG/ML KIT IM PRN (00:19)
[2024-12-22 05:14] LABS: Hematocrit 25.4 % (36.0-47.0); Hemoglobin 7.5 g/dL (12.0-16.0)
[2024-12-22 06:03] LABS: ALT (SGPT) 9 U/L (Less than 34); AST (SGOT) 18 U/L (11-34); Albumin 3.0 g/dL (3.1-4.5); Alkaline Phosphatase 66 U/L (40-110); Anion Gap 11 mmol/L (10-20); BUN (Urea Nitrogen) 15 mg/dL (9.8-20.1); Bilirubin, Total 1.0 mg/dL (0.3-1.2); Calc. Creatinine Clearance 95 mL/min (70-130); Calcium 9.0 mg/dL (7.8-10.44); Carbon Dioxide 22 mmol/L (23-31); Chloride 110 mmol/L (98-107); Globulin 3.9 g/dL (2.4-3.5); Glucose 72 mg/dL (80-115); Magnesium 1.8 mg/dL (1.6-2.6); Potassium 4.1 mmol/L (3.5-5.1); Sodium 139 mmol/L (136-145)
[2024-12-22] MEDS ORDERED: Senokot 8.6 MG TAB PO PRN (08:38)
[2024-12-22] MEDS ORDERED: Famotidine 20 MG TAB PO SCH (09:00)
[2024-12-22] MEDS: Pantoprazole 40 MG VIAL IVP SCH (09:15)
[2024-12-22] MEDS: Multivitamin W/ Minerals 1 TAB PO SCH (09:16)
[2024-12-22] MEDS: Ferrous Sulfate 300 MG (5 mL) UDCUP PO SCH (09:16)
[2024-12-22] MEDS: Acetaminophen/Codeine 30-300mg Tablet PO PRN (09:16)
[2024-12-22] MEDS: Sulfameth/Trimethoprim DS 800-160mg TAB PO SCH (09:17)
[2024-12-22 09:54] LABS: Hematocrit 25.4 % (36.0-47.0); Hemoglobin 7.6 g/dL (12.0-16.0)
[2024-12-22] MEDS ORDERED: Iopamidol 370 76% 100 ML VIAL ONE (12:08)
[2024-12-22 17:42] LABS: Hematocrit 26.6 % (36.0-47.0); Hemoglobin 7.9 g/dL (12.0-16.0)
[2024-12-22] MEDS: Folic Acid 1 MG TAB PO SCH ×2 (21:12)
[2024-12-22] MEDS: Mirtazapine 15 MG TAB PO SCH (21:13)
[2024-12-22] MEDS: Melatonin 3 MG TAB PO SCH (21:13)
[2024-12-22 22:54] LABS: Hematocrit 24.8 % (36.0-47.0); Hemoglobin 7.5 g/dL (12.0-16.0)
[2024-12-23 04:21] LABS: Anion Gap 12 mmol/L (10-20); BUN (Urea Nitrogen) 9 mg/dL (9.8-20.1); Calc. Creatinine Clearance 106 mL/min (70-130); Calcium 8.9 mg/dL (7.8-10.44); Carbon Dioxide 21 mmol/L (23-31); Chloride 110 mmol/L (98-107); Glucose 92 mg/dL (80-115); Potassium 4.0 mmol/L (3.5-5.1); Sodium 139 mmol/L (136-145)
[2024-12-23 04:23] LABS: #Basophils 0.09 10x3/uL (0.0-0.2); #Eosinophils 0.31 10x3/uL (0.0-0.7); #Monocytes 1.04 10x3/uL (0.11-0.59); #Neutrophils 8.72 10x3/uL (1.40-6.50); %Basophils 0.7 % (0.0-1.0); %Eosinophils 2.3 % (0.0-10.0); %Lymphocytes 22.9 % (21.0-51.0); %Monocytes 7.8 % (0.0-10.0); %Neutrophils 65.8 % (42.0-75.0); Hematocrit 25.0 % (36.0-47.0); Hemoglobin 7.4 g/dL (12.0-16.0); Mean Corpuscular Hemoglobin 21.4 pg (27.0-31.0); Mean Corpuscular Volume 72.5 fL (78.0-98.0); Platelet Count 455 10x3/uL (130-400); Red Blood Cell (RBC) Count 3.45 mill/uL (4.20-5.40); White Blood Cell (WBC) Count 13.26 10x3/uL (4.8-10.8)
[2024-12-23] MEDS: Ferrous Sulfate 300 MG (5 mL) UDCUP PO SCH (08:18)
[2024-12-23] MEDS: GoLYTELY 4,000 ml Bottle PER TUBE SCH (20:14)
[2024-12-24] MEDS ORDERED: Lidocaine 1% PF 5 ML VIAL ONE (17:19)
[2024-12-24] MEDS ORDERED: PHENYLEPHRINE-NS 100 MCG/ML 10 ML SYRINGE ONE (17:19)
[2024-12-24] MEDS ORDERED: PROPOFOL 40 ML ONE (17:19)
[2024-12-25 09:31] LABS: #Basophils 0.06 10x3/uL (0.0-0.2); #Eosinophils 0.38 10x3/uL (0.0-0.7); #Monocytes 0.62 10x3/uL (0.11-0.59); #Neutrophils 6.06 10x3/uL (1.40-6.50); %Basophils 0.6 % (0.0-1.0); %Eosinophils 4.1 % (0.0-10.0); %Lymphocytes 22.6 % (21.0-51.0); %Monocytes 6.7 % (0.0-10.0); %Neutrophils 65.7 % (42.0-75.0); Hematocrit 27.7 % (36.0-47.0); Hemoglobin 7.9 g/dL (12.0-16.0); Mean Corpuscular Hemoglobin 21.4 pg (27.0-31.0); Mean Corpuscular Volume 74.9 fL (78.0-98.0); Platelet Count 440 10x3/uL (130-400); Red Blood Cell (RBC) Count 3.70 mill/uL (4.20-5.40); White Blood Cell (WBC) Count 9.24 10x3/uL (4.8-10.8)
[2024-12-25 09:42] LABS: Anion Gap 13 mmol/L (10-20); BUN (Urea Nitrogen) 6 mg/dL (9.8-20.1); Calc. Creatinine Clearance 116 mL/min (70-130); Calcium 9.0 mg/dL (7.8-10.44); Carbon Dioxide 22 mmol/L (23-31); Chloride 109 mmol/L (98-107); Glucose 102 mg/dL (80-115); Potassium 3.8 mmol/L (3.5-5.1); Sodium 140 mmol/L (136-145)
[2024-12-27 08:00] LABS: #Basophils 0.09 10x3/uL (0.0-0.2); #Eosinophils 0.45 10x3/uL (0.0-0.7); #Monocytes 0.77 10x3/uL (0.11-0.59); #Neutrophils 7.21 10x3/uL (1.40-6.50); %Basophils 0.8 % (0.0-1.0); %Eosinophils 4.1 % (0.0-10.0); %Lymphocytes 21.8 % (21.0-51.0); %Monocytes 7.0 % (0.0-10.0); %Neutrophils 65.9 % (42.0-75.0); Hematocrit 26.7 % (36.0-47.0); Hemoglobin 7.9 g/dL (12.0-16.0); Mean Corpuscular Hemoglobin 21.5 pg (27.0-31.0); Mean Corpuscular Volume 72.6 fL (78.0-98.0); Platelet Count 434 10x3/uL (130-400); Red Blood Cell (RBC) Count 3.68 mill/uL (4.20-5.40); White Blood Cell (WBC) Count 10.95 10x3/uL (4.8-10.8)
[2024-12-27 08:04] LABS: Anion Gap 12 mmol/L (10-20); BUN (Urea Nitrogen) 8 mg/dL (9.8-20.1); Calc. Creatinine Clearance 121 mL/min (70-130); Calcium 8.9 mg/dL (7.8-10.44); Carbon Dioxide 22 mmol/L (23-31); Chloride 109 mmol/L (98-107); Glucose 132 mg/dL (80-115); Potassium 3.9 mmol/L (3.5-5.1); Sodium 139 mmol/L (136-145)
[2024-12-27 08:45] LABS: Anisocytosis SLIGHT = 6-15 cells HPF (0-5); Microcytosis SLIGHT = 6-15 cells HPF (0-5); Platelet Adequacy Comment Platelets Increased; Poikilocytosis SLIGHT = 6-15 cells HPF (0-5); Polychromasia MODERATE = 3-4 cells HPF (0-2); Schistocytes SLIGHT = 2-5 cells HPF (0-1); Target Cells SLIGHT = 2-5 cells HPF (0-1)
[2024-12-27] MEDS ORDERED: Bupivacaine 0.25% HCL 30 ML VIAL ONE (10:45)
[2024-12-27] MEDS ORDERED: PROPOFOL 20 ML ONE (11:09)
[2024-12-27] MEDS ORDERED: Ondansetron PF 4 MG/2 ML Vial ONE (11:19)
[2024-12-27] MEDS ORDERED: Ketamine In 0.9 % NaCl 50 MG/5 ML SYRINGE ONE (11:23)
[2024-12-27] MEDS ORDERED: Rocuronium Bromide 10 MG/ML (10ML VIAL) ONE (11:25)
[2024-12-27] MEDS: Clindamycin/D5W 600 MG in Premix 1 BAG IVPB SCH ×2 (15:23→21:23)
[2024-12-28 10:54] LABS: #Basophils 0.07 10x3/uL (0.0-0.2); #Eosinophils 0.26 10x3/uL (0.0-0.7); #Monocytes 1.00 10x3/uL (0.11-0.59); #Neutrophils 7.86 10x3/uL (1.40-6.50); %Basophils 0.6 % (0.0-1.0); %Eosinophils 2.3 % (0.0-10.0); %Lymphocytes 20.0 % (21.0-51.0); %Monocytes 8.7 % (0.0-10.0); %Neutrophils 68.0 % (42.0-75.0); Hematocrit 25.4 % (36.0-47.0); Hemoglobin 7.5 g/dL (12.0-16.0); Mean Corpuscular Hemoglobin 21.4 pg (27.0-31.0); Mean Corpuscular Volume 72.6 fL (78.0-98.0); Platelet Count 413 10x3/uL (130-400); Red Blood Cell (RBC) Count 3.50 mill/uL (4.20-5.40); White Blood Cell (WBC) Count 11.55 10x3/uL (4.8-10.8)
[2024-12-28 11:19] LABS: Anion Gap 14 mmol/L (10-20); BUN (Urea Nitrogen) 11 mg/dL (9.8-20.1); Calc. Creatinine Clearance 110 mL/min (70-130); Calcium 8.8 mg/dL (7.8-10.44); Carbon Dioxide 21 mmol/L (23-31); Chloride 107 mmol/L (98-107); Glucose 139 mg/dL (80-115); Potassium 4.1 mmol/L (3.5-5.1); Sodium 138 mmol/L (136-145)
[2024-12-29 04:25] LABS: Anion Gap 12 mmol/L (10-20); BUN (Urea Nitrogen) 10 mg/dL (9.8-20.1); Calc. Creatinine Clearance 112 mL/min (70-130); Calcium 9.0 mg/dL (7.8-10.44); Carbon Dioxide 23 mmol/L (23-31); Chloride 106 mmol/L (98-107); Glucose 203 mg/dL (80-115); Potassium 3.7 mmol/L (3.5-5.1); Sodium 137 mmol/L (136-145)
[2024-12-29 04:50] LABS: #Basophils 0.08 10x3/uL (0.0-0.2); #Eosinophils 0.03 10x3/uL (0.0-0.7); #Monocytes 0.75 10x3/uL (0.11-0.59); #Neutrophils 11.42 10x3/uL (1.40-6.50); %Basophils 0.6 % (0.0-1.0); %Eosinophils 0.2 % (0.0-10.0); %Lymphocytes 11.1 % (21.0-51.0); %Monocytes 5.4 % (0.0-10.0); %Neutrophils 82.1 % (42.0-75.0); Hematocrit 25.9 % (36.0-47.0); Hemoglobin 7.6 g/dL (12.0-16.0); Mean Corpuscular Hemoglobin 21.3 pg (27.0-31.0); Mean Corpuscular Volume 72.5 fL (78.0-98.0); Platelet Count 418 10x3/uL (130-400); Red Blood Cell (RBC) Count 3.57 mill/uL (4.20-5.40); White Blood Cell (WBC) Count 13.91 10x3/uL (4.8-10.8)
[2024-12-29] MEDS: Ondansetron PF 4 MG/2 ML Vial IVP PRN (18:58)
[2024-12-30 04:13] LABS: #Basophils 0.08 10x3/uL (0.0-0.2); #Eosinophils Less than 0.03 10x3/uL (0.0-0.7); #Monocytes 1.30 10x3/uL (0.11-0.59); #Neutrophils 21.99 10x3/uL (1.40-6.50); %Basophils 0.3 % (0.0-1.0); %Eosinophils 0.0 % (0.0-10.0); %Lymphocytes 3.8 % (21.0-51.0); %Monocytes 5.3 % (0.0-10.0); %Neutrophils 89.6 % (42.0-75.0); Hematocrit 28.7 % (36.0-47.0); Hemoglobin 8.3 g/dL (12.0-16.0); Mean Corpuscular Hemoglobin 21.0 pg (27.0-31.0); Mean Corpuscular Volume 72.7 fL (78.0-98.0); Platelet Count 424 10x3/uL (130-400); Red Blood Cell (RBC) Count 3.95 mill/uL (4.20-5.40); White Blood Cell (WBC) Count 24.53 10x3/uL (4.8-10.8)
[2024-12-30 04:51] LABS: Anion Gap 15 mmol/L (10-20); BUN (Urea Nitrogen) 15 mg/dL (9.8-20.1); Calc. Creatinine Clearance 104 mL/min (70-130); Calcium 9.3 mg/dL (7.8-10.44); Carbon Dioxide 18 mmol/L (23-31); Chloride 111 mmol/L (98-107); Glucose 219 mg/dL (80-115); Magnesium 1.7 mg/dL (1.6-2.6); Potassium 3.8 mmol/L (3.5-5.1); Sodium 140 mmol/L (136-145)
[2024-12-30] MEDS: Magnesium 2 GM/50 ML(in water) 2 GM in Premix 1 BAG IVPB SCH (08:40)
[2024-12-30] MEDS: VANCOMYCIN 1.75 GM/350 ML Premix BAG IVPB SCH (08:46)
[2024-12-30] MEDS: LevoFLOXacin 750 mg/D5W 750 MG in Premix 1 BAG IVPB SCH (11:34)
[2024-12-30] MEDS ORDERED: GASTROGRAFIN 30 ML BOT ONE (14:25)
[2024-12-30] MEDS ORDERED: Iopamidol 370 76% 100 ML VIAL ONE (14:25)
[2024-12-30] MEDS: Vancomycin 1 GM in Premix 1 BAG IVPB SCH (21:32)
[2024-12-31 03:57] LABS: #Basophils 0.11 10x3/uL (0.0-0.2); #Eosinophils 0.17 10x3/uL (0.0-0.7); #Monocytes 1.36 10x3/uL (0.11-0.59); #Neutrophils 14.97 10x3/uL (1.40-6.50); %Basophils 0.6 % (0.0-1.0); %Eosinophils 0.9 % (0.0-10.0); %Lymphocytes 13.0 % (21.0-51.0); %Monocytes 7.1 % (0.0-10.0); %Neutrophils 77.8 % (42.0-75.0); Hematocrit 27.2 % (36.0-47.0); Hemoglobin 7.8 g/dL (12.0-16.0); Mean Corpuscular Hemoglobin 20.7 pg (27.0-31.0); Mean Corpuscular Volume 72.1 fL (78.0-98.0); Platelet Count 383 10x3/uL (130-400); Red Blood Cell (RBC) Count 3.77 mill/uL (4.20-5.40); White Blood Cell (WBC) Count 19.22 10x3/uL (4.8-10.8)
[2024-12-31 04:25] LABS: Vancomycin, Random 19.4 ug/mL (See Comment)
[2024-12-31 04:26] LABS: Anisocytosis SLIGHT = 6-15 cells HPF (0-5); Microcytosis SLIGHT = 6-15 cells HPF (0-5); Platelet Adequacy Comment Platelets Normal; Polychromasia SLIGHT = 2-3 cells HPF (0-2)
[2024-12-31 04:28] LABS: Anion Gap 9 mmol/L (10-20); BUN (Urea Nitrogen) 12 mg/dL (9.8-20.1); CRP,High Sensitivity (Inhouse) 15.44 mg/dL (< or = 0.5); Calc. Creatinine Clearance 123 mL/min (70-130); Calcium 8.6 mg/dL (7.8-10.44); Carbon Dioxide 22 mmol/L (23-31); Chloride 113 mmol/L (98-107); Glucose 116 mg/dL (80-115); Magnesium 1.9 mg/dL (1.6-2.6); Potassium 3.4 mmol/L (3.5-5.1); Sodium 141 mmol/L (136-145)
[2024-12-31 07:35] LABS: Bacteria/HPF None Seen HPF (None Seen); CAUTI Indications for Culture Alt mental st,lethar; Glucose, Urine (Dipstick) Normal (Negative); Leukocyte Negative Leu/uL (Negative); Protein, Urine (Dipstick) 20 mg/dL (Neg-Trace); Specific Gravity, Urine 1.033 (1.002-1.036); WBC/HPF 0-3 HPF (0-3)
[2024-12-31 08:10] LABS: Urine Culture Reflex No No
[2024-12-31] MEDS ORDERED: Bisacodyl 10 MG SUPP PR PRN (09:30)
[2024-12-31] MEDS: Aspirin 81 mg Enteric Coated Tablet PO SCH (09:54)
[2024-12-31] MEDS: Potassium Bicarbonate/Cit Ac 20 MEQ TAB PO SCH (12:15)
[2024-12-31] MEDS: Magnesium 2 GM/50 ML(in water) 2 GM in Premix 1 BAG IVPB SCH (12:15)
[2025-01-01 04:13] LABS: Anion Gap 11 mmol/L (10-20); BUN (Urea Nitrogen) 12 mg/dL (9.8-20.1); Calc. Creatinine Clearance 131 mL/min (70-130); Calcium 8.3 mg/dL (7.8-10.44); Carbon Dioxide 22 mmol/L (23-31); Chloride 111 mmol/L (98-107); Glucose 104 mg/dL (80-115); Magnesium 1.9 mg/dL (1.6-2.6); Potassium 4.0 mmol/L (3.5-5.1); Sodium 140 mmol/L (136-145)
[2025-01-01 04:22] LABS: #Basophils 0.08 10x3/uL (0.0-0.2); #Eosinophils 0.47 10x3/uL (0.0-0.7); #Monocytes 1.08 10x3/uL (0.11-0.59); #Neutrophils 10.90 10x3/uL (1.40-6.50); %Basophils 0.5 % (0.0-1.0); %Eosinophils 3.1 % (0.0-10.0); %Lymphocytes 16.2 % (21.0-51.0); %Monocytes 7.2 % (0.0-10.0); %Neutrophils 72.5 % (42.0-75.0); Hematocrit 23.0 % (36.0-47.0); Hemoglobin 6.7 g/dL (12.0-16.0); Mean Corpuscular Hemoglobin 20.9 pg (27.0-31.0); Mean Corpuscular Volume 71.7 fL (78.0-98.0); Platelet Count 369 10x3/uL (130-400); Red Blood Cell (RBC) Count 3.21 mill/uL (4.20-5.40); White Blood Cell (WBC) Count 15.04 10x3/uL (4.8-10.8)
[2025-01-01] MEDS: Magnesium 2 GM/50 ML(in water) 2 GM in Premix 1 BAG IVPB SCH (10:55)
[2025-01-01] MEDS: Sodium Ferric Gluconate 250 MG in Sodium Chloride 0.9% 250 ML 250 ML IVPB SCH (12:10)
[2025-01-01] MEDS: Lansoprazole 30 MG/10 ML UDCUP PO SCH (21:02)
[2025-01-02 06:03] LABS: Vancomycin, Random 17.9 ug/mL (See Comment)
[2025-01-02 06:05] LABS: Anion Gap 12 mmol/L (10-20); BUN (Urea Nitrogen) 9 mg/dL (9.8-20.1); Calc. Creatinine Clearance 126 mL/min (70-130); Calcium 8.5 mg/dL (7.8-10.44); Carbon Dioxide 22 mmol/L (23-31); Chloride 109 mmol/L (98-107); Glucose 91 mg/dL (80-115); Magnesium 2.0 mg/dL (1.6-2.6); Potassium 4.1 mmol/L (3.5-5.1); Sodium 139 mmol/L (136-145)
[2025-01-02 10:59] LABS: #Basophils 0.10 10x3/uL (0.0-0.2); #Eosinophils 0.67 10x3/uL (0.0-0.7); #Monocytes 1.07 10x3/uL (0.11-0.59); #Neutrophils 9.16 10x3/uL (1.40-6.50); %Basophils 0.8 % (0.0-1.0); %Eosinophils 5.1 % (0.0-10.0); %Lymphocytes 15.5 % (21.0-51.0); %Monocytes 8.2 % (0.0-10.0); %Neutrophils 69.9 % (42.0-75.0); Hematocrit 27.9 % (36.0-47.0); Hemoglobin 8.4 g/dL (12.0-16.0); Mean Corpuscular Hemoglobin 22.2 pg (27.0-31.0); Mean Corpuscular Volume 73.6 fL (78.0-98.0); Platelet Count 351 10x3/uL (130-400); Red Blood Cell (RBC) Count 3.79 mill/uL (4.20-5.40); White Blood Cell (WBC) Count 13.09 10x3/uL (4.8-10.8)
[2025-01-03 05:23] LABS: #Basophils 0.09 10x3/uL (0.0-0.2); #Eosinophils 0.66 10x3/uL (0.0-0.7); #Monocytes 1.38 10x3/uL (0.11-0.59); #Neutrophils 9.70 10x3/uL (1.40-6.50); %Basophils 0.6 % (0.0-1.0); %Eosinophils 4.7 % (0.0-10.0); %Lymphocytes 15.1 % (21.0-51.0); %Monocytes 9.8 % (0.0-10.0); %Neutrophils 69.1 % (42.0-75.0); Hematocrit 30.2 % (36.0-47.0); Hemoglobin 9.0 g/dL (12.0-16.0); Mean Corpuscular Hemoglobin 22.1 pg (27.0-31.0); Mean Corpuscular Volume 74.0 fL (78.0-98.0); Platelet Count 382 10x3/uL (130-400); Red Blood Cell (RBC) Count 4.08 mill/uL (4.20-5.40); White Blood Cell (WBC) Count 14.05 10x3/uL (4.8-10.8)
[2025-01-06 05:34] LABS: Vancomycin, Random 22.7 ug/mL (See Comment)
[2025-01-06 05:38] LABS: Calc. Creatinine Clearance 114.0 mL/min (70-130)
[2025-01-07 09:08] LABS: Anion Gap 12 mmol/L (10-20); BUN (Urea Nitrogen) 16 mg/dL (9.8-20.1); Calc. Creatinine Clearance 134 mL/min (70-130); Calcium 8.9 mg/dL (7.8-10.44); Carbon Dioxide 24 mmol/L (23-31); Chloride 107 mmol/L (98-107); Glucose 94 mg/dL (80-115); Potassium 4.1 mmol/L (3.5-5.1); Sodium 139 mmol/L (136-145)
[2025-01-07 09:39] LABS: #Basophils 0.10 10x3/uL (0.0-0.2); #Eosinophils 0.58 10x3/uL (0.0-0.7); #Monocytes 0.91 10x3/uL (0.11-0.59); #Neutrophils 5.69 10x3/uL (1.40-6.50); %Basophils 1.0 % (0.0-1.0); %Eosinophils 6.0 % (0.0-10.0); %Lymphocytes 23.4 % (21.0-51.0); %Monocytes 9.4 % (0.0-10.0); %Neutrophils 59.2 % (42.0-75.0); Hematocrit 29.2 % (36.0-47.0); Hemoglobin 8.5 g/dL (12.0-16.0); Mean Corpuscular Hemoglobin 22.7 pg (27.0-31.0); Mean Corpuscular Volume 77.9 fL (78.0-98.0); Platelet Count 417 10x3/uL (130-400); Red Blood Cell (RBC) Count 3.75 mill/uL (4.20-5.40); White Blood Cell (WBC) Count 9.64 10x3/uL (4.8-10.8)
[2025-01-07] MEDS: Baclofen 10 MG TAB PO SCH ×2 (10:01→20:14)
[2025-01-07 10:23] LABS: Macrocytosis SLIGHT = 6-15 cells HPF (0-5); Platelet Adequacy Comment Platelets Increased; Polychromasia SLIGHT = 2-3 cells HPF (0-2); Schistocytes MODERATE= 6-15 cells HPF (0-1); Target Cells SLIGHT = 2-5 cells HPF (0-1)
[2025-01-08 05:44] LABS: #Basophils 0.10 10x3/uL (0.0-0.2); #Eosinophils 0.48 10x3/uL (0.0-0.7); #Monocytes 0.81 10x3/uL (0.11-0.59); #Neutrophils 7.35 10x3/uL (1.40-6.50); %Basophils 1.0 % (0.0-1.0); %Eosinophils 4.6 % (0.0-10.0); %Lymphocytes 15.1 % (21.0-51.0); %Monocytes 7.8 % (0.0-10.0); %Neutrophils 70.5 % (42.0-75.0); Hematocrit 32.2 % (36.0-47.0); Hemoglobin 9.4 g/dL (12.0-16.0); Mean Corpuscular Hemoglobin 22.6 pg (27.0-31.0); Mean Corpuscular Volume 77.4 fL (78.0-98.0); Platelet Count 482 10x3/uL (130-400); Red Blood Cell (RBC) Count 4.16 mill/uL (4.20-5.40); White Blood Cell (WBC) Count 10.41 10x3/uL (4.8-10.8)
[2025-01-08 05:54] LABS: Anion Gap 12 mmol/L (10-20); BUN (Urea Nitrogen) 15 mg/dL (9.8-20.1); Calc. Creatinine Clearance 126 mL/min (70-130); Calcium 9.1 mg/dL (7.8-10.44); Carbon Dioxide 26 mmol/L (23-31); Chloride 107 mmol/L (98-107); Glucose 182 mg/dL (80-115); Potassium 4.0 mmol/L (3.5-5.1); Sodium 141 mmol/L (136-145)
[2025-01-08 20:29] LABS: #Basophils 0.11 10x3/uL (0.0-0.2); #Eosinophils 0.40 10x3/uL (0.0-0.7); #Monocytes 0.96 10x3/uL (0.11-0.59); #Neutrophils 6.96 10x3/uL (1.40-6.50); %Basophils 1.0 % (0.0-1.0); %Eosinophils 3.7 % (0.0-10.0); %Lymphocytes 21.7 % (21.0-51.0); %Monocytes 8.9 % (0.0-10.0); %Neutrophils 64.1 % (42.0-75.0); Hematocrit 30.1 % (36.0-47.0); Hemoglobin 8.8 g/dL (12.0-16.0); Mean Corpuscular Hemoglobin 22.9 pg (27.0-31.0); Mean Corpuscular Volume 78.2 fL (78.0-98.0); Platelet Count 449 10x3/uL (130-400); Red Blood Cell (RBC) Count 3.85 mill/uL (4.20-5.40); White Blood Cell (WBC) Count 10.84 10x3/uL (4.8-10.8)
[2025-01-08 20:43] LABS: Anion Gap 14 mmol/L (10-20); BUN (Urea Nitrogen) 21 mg/dL (9.8-20.1); Calc. Creatinine Clearance 114 mL/min (70-130); Calcium 8.7 mg/dL (7.8-10.44); Carbon Dioxide 24 mmol/L (23-31); Chloride 107 mmol/L (98-107); Glucose 118 mg/dL (80-115); Magnesium 1.9 mg/dL (1.6-2.6); Potassium 4.1 mmol/L (3.5-5.1); Sodium 141 mmol/L (136-145)
[2025-01-08 20:47] LABS: Anisocytosis MODERATE=16-30 cells HPF (0-5); Macrocytosis SLIGHT = 6-15 cells HPF (0-5); Microcytosis SLIGHT = 6-15 cells HPF (0-5); Ovalocytes SLIGHT = 2-5 cells HPF (0-1); Platelet Adequacy Comment Platelets Increased; Polychromasia MODERATE = 3-4 cells HPF (0-2); Schistocytes SLIGHT = 2-5 cells HPF (0-1)
[2025-01-09] MEDS: Albumin 25% 25 GM (100 mL) BOT IVPB SCH (00:29)
[2025-01-09] MEDS ORDERED: NOREPINEPHRINE 8 MG/250 ML-D5W 250 ML IVPB SCH (01:30)
[2025-01-09 03:35] LABS: #Basophils 0.06 10x3/uL (0.0-0.2); #Eosinophils 0.52 10x3/uL (0.0-0.7); #Monocytes 0.89 10x3/uL (0.11-0.59); #Neutrophils 5.56 10x3/uL (1.40-6.50); %Basophils 0.6 % (0.0-1.0); %Eosinophils 5.5 % (0.0-10.0); %Lymphocytes 24.4 % (21.0-51.0); %Monocytes 9.5 % (0.0-10.0); %Neutrophils 59.3 % (42.0-75.0); Hematocrit 26.6 % (36.0-47.0); Hemoglobin 7.9 g/dL (12.0-16.0); Mean Corpuscular Hemoglobin 22.7 pg (27.0-31.0); Mean Corpuscular Volume 76.4 fL (78.0-98.0); Platelet Count 389 10x3/uL (130-400); Red Blood Cell (RBC) Count 3.48 mill/uL (4.20-5.40); White Blood Cell (WBC) Count 9.39 10x3/uL (4.8-10.8)
[2025-01-09 03:47] LABS: Anion Gap 11 mmol/L (10-20); BUN (Urea Nitrogen) 24 mg/dL (9.8-20.1); Calc. Creatinine Clearance 129 mL/min (70-130); Calcium 9.0 mg/dL (7.8-10.44); Carbon Dioxide 26 mmol/L (23-31); Chloride 106 mmol/L (98-107); Glucose 105 mg/dL (80-115); Potassium 4.0 mmol/L (3.5-5.1); Sodium 139 mmol/L (136-145)
[2025-01-09 04:00] LABS: Anisocytosis SLIGHT = 6-15 cells HPF (0-5); Macrocytosis SLIGHT = 6-15 cells HPF (0-5); Platelet Adequacy Comment Platelets Normal; Polychromasia SLIGHT = 2-3 cells HPF (0-2); Schistocytes SLIGHT = 2-5 cells HPF (0-1)
[2025-01-09] MEDS: Mupirocin 1 GM TUBE NASAL DECOLONIZATION NASAL SCH (20:56)
[2025-01-10 05:30] LABS: #Basophils 0.07 10x3/uL (0.0-0.2); #Eosinophils 0.57 10x3/uL (0.0-0.7); #Monocytes 0.76 10x3/uL (0.11-0.59); #Neutrophils 4.30 10x3/uL (1.40-6.50); %Basophils 0.9 % (0.0-1.0); %Eosinophils 7.4 % (0.0-10.0); %Lymphocytes 25.6 % (21.0-51.0); %Monocytes 9.9 % (0.0-10.0); %Neutrophils 55.7 % (42.0-75.0); Hematocrit 29.5 % (36.0-47.0); Hemoglobin 8.6 g/dL (12.0-16.0); Mean Corpuscular Hemoglobin 22.6 pg (27.0-31.0); Mean Corpuscular Volume 77.6 fL (78.0-98.0); Platelet Count 411 10x3/uL (130-400); Red Blood Cell (RBC) Count 3.80 mill/uL (4.20-5.40); White Blood Cell (WBC) Count 7.71 10x3/uL (4.8-10.8)
[2025-01-10 05:33] LABS: Anion Gap 13 mmol/L (10-20); BUN (Urea Nitrogen) 22 mg/dL (9.8-20.1); Calc. Creatinine Clearance 134 mL/min (70-130); Calcium 9.2 mg/dL (7.8-10.44); Carbon Dioxide 24 mmol/L (23-31); Chloride 108 mmol/L (98-107); Glucose 89 mg/dL (80-115); Potassium 4.2 mmol/L (3.5-5.1); Sodium 141 mmol/L (136-145)
[2025-01-10] MEDS ORDERED: PROPOFOL 20 ML ONE (07:05)
[2025-01-10] MEDS ORDERED: Lidocaine 1% PF 5 ML VIAL ONE (07:05)
[2025-01-10] MEDS ORDERED: fentaNYL PF 100 MCG/2 ML SYRINGE ONE (07:45)
[2025-01-10] MEDS ORDERED: PHENYLEPHRINE-NS 100 MCG/ML 10 ML SYRINGE ONE (08:05)
[2025-01-10] MEDS: Aspirin Chewable 81 MG TAB PER TUBE SCH (09:43)
[2025-01-11 05:00] LABS: Anion Gap 12 mmol/L (10-20); BUN (Urea Nitrogen) 19 mg/dL (9.8-20.1); Calc. Creatinine Clearance 149 mL/min (70-130); Calcium 8.4 mg/dL (7.8-10.44); Carbon Dioxide 23 mmol/L (23-31); Chloride 107 mmol/L (98-107); Glucose 149 mg/dL (80-115); Potassium 4.1 mmol/L (3.5-5.1); Sodium 138 mmol/L (136-145); Vancomycin, Random 26.7 ug/mL (See Comment)
[2025-01-11 05:01] LABS: #Basophils 0.06 10x3/uL (0.0-0.2); #Eosinophils 0.12 10x3/uL (0.0-0.7); #Monocytes 0.98 10x3/uL (0.11-0.59); #Neutrophils 7.88 10x3/uL (1.40-6.50); %Basophils 0.5 % (0.0-1.0); %Eosinophils 1.1 % (0.0-10.0); %Lymphocytes 19.7 % (21.0-51.0); %Monocytes 8.6 % (0.0-10.0); %Neutrophils 69.5 % (42.0-75.0); Hematocrit 23.1 % (36.0-47.0); Hemoglobin 6.9 g/dL (12.0-16.0); Mean Corpuscular Hemoglobin 22.8 pg (27.0-31.0); Mean Corpuscular Volume 76.5 fL (78.0-98.0); Platelet Count 391 10x3/uL (130-400); Red Blood Cell (RBC) Count 3.02 mill/uL (4.20-5.40); White Blood Cell (WBC) Count 11.34 10x3/uL (4.8-10.8)
[2025-01-11 06:43] VITALS: BMI 21.9
[2025-01-11] MEDS: Vancomycin HCl 750 MG in Sodium Chloride 0.9% 250 ML 250 ML IVPB SCH (10:54)
[2025-01-11 12:54] VITALS: BMI 21.9
[2025-01-11] MEDS ORDERED: Acetaminophen/Codeine 30-300mg Tablet PO PRN (15:01)
[2025-01-12 04:32] LABS: Hematocrit 31.1 % (36.0-47.0); Hemoglobin 9.3 g/dL (12.0-16.0)
[2025-01-12 04:40] LABS: Vancomycin, Random 18.9 ug/mL (See Comment)
[2025-01-12 17:28] VITALS: BP 108/69; TEMP 98.3
== END 2025-01-12 18:35 | DRG 981 ==
LOC: ERS 16:45 → SUATTDRO 16:45 → 2SE 20:16 → OBSVTOIN 20:16 → MSONC 01-01 17:49 → CCU 01-09 02:33 → SURG B 01-11 11:23
PROVIDERS: ADMIT Family Medicine; ATTEND Internal Medicine
PROC: 30233N1 Transfusion of Nonautologous Red Blood Cells into Peripheral Vein, Percutaneous Approach (ICD-10-PCS; 2024-12-21)
PROC: 3E0G76Z Introduction of Nutritional Substance into Upper GI, Via Natural or Artificial Opening (ICD-10-PCS; 2024-12-22)
PROC: 0DW68UZ Revision of Feeding Device in Stomach, Via Natural or Artificial Opening Endoscopic (ICD-10-PCS; principal; 2024-12-24)
PROC: 0DJD8ZZ Inspection of Lower Intestinal Tract, Via Natural or Artificial Opening Endoscopic (ICD-10-PCS; 2024-12-24)
PROC: 0Y6Q0Z1 Detachment at Left 1st Toe, High, Open Approach (ICD-10-PCS; 2024-12-27)
PROC: 0Y6U0Z1 Detachment at Left 3rd Toe, High, Open Approach (ICD-10-PCS; 2024-12-27)
PROC: 0Y6S0Z1 Detachment at Left 2nd Toe, High, Open Approach (ICD-10-PCS; 2024-12-27)
PROC: 3E03329 Introduction of Other Anti-infective into Peripheral Vein, Percutaneous Approach (ICD-10-PCS; 2024-12-30)
PROC: 3E033XZ Introduction of Vasopressor into Peripheral Vein, Percutaneous Approach (ICD-10-PCS; 2024-12-30)
PROC: 06HM33Z Insertion of Infusion Device into Right Femoral Vein, Percutaneous Approach (ICD-10-PCS; 2025-01-02)
PROC: 30233J1 Transfusion of Nonautologous Serum Albumin into Peripheral Vein, Percutaneous Approach (ICD-10-PCS; 2025-01-09)
PROC: 0Y6D0Z1 Detachment at Left Upper Leg, High, Open Approach (ICD-10-PCS; 2025-01-10)
DX: D50.9 Iron deficiency anemia, unspecified (principal); A41.9 Sepsis, unspecified organism; J69.0 Pneumonitis due to inhalation of food and vomit; J18.9 Pneumonia, unspecified organism; E11.52 Type 2 diabetes mellitus with diabetic peripheral angiopathy with gangrene; I69.952 Hemiplegia and hemiparesis following unspecified cerebrovascular disease affecting left dominant side; I96 Gangrene, not elsewhere classified; T85.628A Displacement of other specified internal prosthetic devices, implants and grafts, initial encounter; L02.413 Cutaneous abscess of right upper limb; E78.5 Hyperlipidemia, unspecified; I10 Essential (primary) hypertension; K31.819 Angiodysplasia of stomach and duodenum without bleeding; E11.621 Type 2 diabetes mellitus with foot ulcer; L97.521 Non-pressure chronic ulcer of other part of left foot limited to breakdown of skin; M54.50 Low back pain, unspecified; I69.991 Dysphagia following unspecified cerebrovascular disease; I69.992 Facial weakness following unspecified cerebrovascular disease; Z98.890 Other specified postprocedural states; Z90.49 Acquired absence of other specified parts of digestive tract; Z90.710 Acquired absence of both cervix and uterus; Z95.5 Presence of coronary angioplasty implant and graft; Z88.0 Allergy status to penicillin; Z88.8 Allergy status to other drugs, medicaments and biological substances; Z93.1 Gastrostomy status; Z74.01 Bed confinement status; M54.9 Dorsalgia, unspecified; G89.29 Other chronic pain; Z98.891 History of uterine scar from previous surgery; Z88.1 Allergy status to other antibiotic agents; I25.2 Old myocardial infarction; I25.10 Atherosclerotic heart disease of native coronary artery without angina pectoris; Z79.82 Long term (current) use of aspirin; Z79.899 Other long term (current) drug therapy; Z79.84 Long term (current) use of oral hypoglycemic drugs; Z79.02 Long term (current) use of antithrombotics/antiplatelets; R13.12 Dysphagia, oropharyngeal phase; L08.9 Local infection of the skin and subcutaneous tissue, unspecified; L97.529 Non-pressure chronic ulcer of other part of left foot with unspecified severity; Y83.1 Surgical operation with implant of artificial internal device as the cause of abnormal reaction of the patient, or of later complication, without mention of misadventure at the time of the procedure; Z79.4 Long term (current) use of insulin; L89.899 Pressure ulcer of other site, unspecified stage
CPT/HCPCS: 36415; 36416; 36430; 71045; 71260; 74177; 80048; 80053; 80202; 81001; 82274; 82565; 82728; 83010; 83540; 83550; 83605; 83615; 83735; 83880; 84100; 84145; 84484; 85014; 85018; 85025; 85046; 85610; 85730; 86141; 86850; 86900; 86901; 87040; 87081; 88305; 88307; 88311; 97139; 99285; J0665; J1815; J1956; J2185; J2250; J2405; J2470; J2704; J2916; J3010; J3373; J3375; J3475; J3490; J7030; J7050; J7120; P9016; P9047; Q0162; Q9963; Q9967

== ENCOUNTER 2025-05-05 16:43 | Emergency (ER) | payer OTHER ==
[~2025-05-05 16:43] MED LIST changes: -ISOVUE-370 76%-LOCM 1 ML ONE; +Iopamidol 370 76% 100 ML VIAL ONE
[2025-05-05 17:40] LABS: #Basophils 0.09 10x3/uL (0.0-0.2); #Eosinophils 0.60 10x3/uL (0.0-0.7); #Monocytes 0.74 10x3/uL (0.11-0.59); #Neutrophils 4.61 10x3/uL (1.40-6.50); %Basophils 1.0 % (0.0-1.0); %Eosinophils 6.6 % (0.0-10.0); %Lymphocytes 33.7 % (21.0-51.0); %Monocytes 8.1 % (0.0-10.0); %Neutrophils 50.3 % (42.0-75.0); Hematocrit 24.1 % (36.0-47.0); Hemoglobin 7.0 g/dL (12.0-16.0); Mean Corpuscular Hemoglobin 22.3 pg (27.0-31.0); Mean Corpuscular Volume 76.8 fL (78.0-98.0); Platelet Count 374 10x3/uL (130-400); Red Blood Cell (RBC) Count 3.14 mill/uL (4.20-5.40); White Blood Cell (WBC) Count 9.16 10x3/uL (4.8-10.8)
[2025-05-05 17:56] LABS: INR-International Normal Ratio 1.1; Prothrombin Time 14.4 sec (12.0-14.7)
[2025-05-05 18:15] LABS: ALT (SGPT) 11 U/L (Less than 34); AST (SGOT) 24 U/L (11-34); Albumin 3.4 g/dL (3.1-4.5); Alkaline Phosphatase 75 U/L (40-110); Anion Gap 11 mmol/L (10-20); BUN (Urea Nitrogen) 21 mg/dL (9.8-20.1); Bilirubin, Total 0.2 mg/dL (0.3-1.2); Calc. Creatinine Clearance 0 mL/min (70-130); Calcium 8.9 mg/dL (7.8-10.44); Carbon Dioxide 24 mmol/L (23-31); Chloride 107 mmol/L (98-107); Globulin 3.3 g/dL (2.4-3.5); Glucose 156 mg/dL (80-115); Potassium 3.9 mmol/L (3.5-5.1); Sodium 138 mmol/L (136-145)
== END 2025-05-05 22:54 ==
LOC: ERS 16:43
DX: D64.9 Anemia, unspecified (principal); I10 Essential (primary) hypertension; Z86.73 Personal history of transient ischemic attack (TIA), and cerebral infarction without residual deficits; E11.9 Type 2 diabetes mellitus without complications
CPT/HCPCS: 36430; 71260; 74174; 80053; 85610; 86850; 86900; 86901; 94760; P9016; Q9967